=== PATIENT | male | born 1975 | race Caucasian/White ===

== ENCOUNTER 2016-11-03 02:13 | Emergency (ER) | payer SELFPAY ==
[~2016-11-03] VITALS: Ht 180.3 cm; Wt 77.6 kg
[~2016-11-03 02:13] MED LIST: ATEN100T PO; BUTA1CAP29 PO; CARB200T PO; HYDR-971 PO
[2016-11-03] MEDS ORDERED: ONDANSETRON PF 4 MG/2 ML VIAL. IV ONE (02:30)
[2016-11-03] MEDS ORDERED: HYDROMORPHONE 2 MG/ML VIAL. IV PRN (02:30)
[2016-11-03] MEDS ORDERED: 0.9 % SODIUM CHLORIDE 10 ML DISP.SYRIN. IV PRN (02:30)
[2016-11-03 02:44] LABS: BASO # 0.2 x10^3/uL (0.0-0.2); BASO % 2 % (0-3); EOS % 4 % (0-3); HEMATOCRIT 47.5 % (39.0-53.0); HEMOGLOBIN 16.2 g/dL (13.0-17.5); LYMPH # 3.3 x10^3/uL (1.0-4.8); LYMPH % 32 % (24-48); MEAN CORPUSCULAR HEMOGLOBIN 33 pg (25-35); MEAN CORPUSCULAR HGB CONC 34 g/dL (31-37); MEAN CORPUSCULAR VOLUME 97 fL (79-100); MONO % 6 % (0-9); NEUT % 57 % (31-73); PLATELET COUNT 224 x10^3/uL (140-400); RED BLOOD COUNT 4.92 x10^6/uL (4.30-5.70); RED CELL DISTRIBUTION WIDTH 13.2 % (11.5-14.5); WHITE BLOOD COUNT 10.4 x10^3/uL (4.0-11.0)
[2016-11-03 02:57] LABS: INR 1.3 (0.8-1.1)
[2016-11-03 02:59] LABS: CALCIUM 8.4 mg/dL (8.5-10.1); CREATININE 1.1 mg/dL (0.7-1.3); GFR 74.1; POTASSIUM 3.9 mmol/L (3.5-5.1)
--- NOTE | 2016-11-03 03:01 | RAD ---
PROCEDURE Head and cervical spine CT without contrast. HISTORY Seizure. TECHNIQUE Computed tomographic images of the head and cervical spine were obtained without contrast. One or more of the following individualized dose reduction techniques were utilized for this examination: 1. Automated exposure control; 2. Adjustment of the mA and/or kV according to patient size; 3. Use of iterative reconstruction technique. COMPARISON CT angiogram dated 10/18/2016. FINDINGS Head: There is stable mild increased bifrontal extra-axial space due to mile cerebral volume loss. There is no evidence of acute hemorrhage. The mata and white matter differentiation pattern is intact. There is no mass effect or midline shift. There is no hydrocephalus. The orbits, paranasal sinuses mastoid air cells are unremarkable. Cervical spine: The vertebral bodies are normal in height. There is degenerative endplate remodeling with osteophytosis at multiple levels, predominately at C5-C6. There is no fracture. No suspicious osseous lesion is seen. There is mild biapical emphysema. There foci of gas within the thoracic inlet likely due to recent venous catheterization. At C2-C3, there is a disc bulge and endplate remodeling. There is mild left facet arthropathy. There is no stenosis. At C3-C4, there is a disc bulge and endplate remodeling. There is mild left facet arthropathy. There is mild left foraminal stenosis. At C4-C5, there is a disc bulge and endplate remodeling. There is mild left facet arthropathy. There is no stenosis. At C5-C6, there is a right paracentral to lateral disc osteophyte complex superimposed on a disc bulge and endplate remodeling. There is uncovertebral arthropathy. There is moderate to severe right and mild left foraminal stenosis. At C6-C7, there is a left foraminal to lateral disc osteophyte complex superimposed on a disc bulge and endplate osteophytosis. There is uncovertebral arthropathy. There is moderate right and moderate to severe left foraminal stenosis. IMPRESSION 1. No acute intracranial finding. Note is made that a previously reported cerebral aneurysm cannot be assessed on this noncontrast exam. There is no evidence of hemorrhage. 2. Multilevel degenerative change within the cervical spine, described in detail above. Electronically signed by: Juanita Dick (Nov 03, 2016 02:59:26)
[2016-11-03 03:05] LABS: ALBUMIN 3.8 g/dL (3.4-5.0); DIRECT BILIRUBIN 0.1 mg/dL (0.0-0.2); TOTAL BILIRUBIN 0.3 mg/dL (0.2-1.0); TOTAL PROTEIN 7.6 g/dL (6.4-8.2)
[2016-11-03 03:09] VITALS: BP 98/65
[2016-11-03 03:15] LABS: BARBITURATES NEG (NEG); BENZODIAZEPINES NEG (NEG); CANNABINOIDS NEG (NEG); COCAINE NEG (NEG); METHADONE NEG (NEG); OPIATES NEG (NEG); PHENCYCLIDINE NEG (NEG)
[2016-11-03 03:17] LABS: ETHANOL, URINE POS (NEG)
--- NOTE | 2016-11-03 03:23 | PHYS DOC ---
Past Medical History Past Medical History: COPD, Hypertension, Seizure Additional Past Medical Histor: collapse lungs, brain aneurysm Past Surgical History: Other Additional Past Surgical Histo: lung sx Alcohol Use: Occasionally Drug Use: None Adult General Chief Complaint Chief Complaint: SEIZURE HPI HPI 41-year-old male presenting to the emergency department today with one seizure. He comes by EMS today. He had a seizure and subsequent hit his head. He hit his head on the table. Since then he has had a headache that is sharp moderate nonradiating and intermittent. No alleviating or exacerbating factors present. He reports recently changing his Tegretol however is unable to afford the increase in his medication. Review of Systems Review of Systems ROS negative for chest pain abdominal pain nausea vomiting. All other review of systems is negative unless otherwise noted in history of present illness. Current Medications Current Medications Current Medications Medications (Trade) Dose Ordered Sig/Daniella Start Time Stop Time Status Last Admin Dose Admin Hydromorphone HCl (Dilaudid) 0.5 mg PRN Q1HR PRN 11/03/16 02:30 11/03/16 03:37 DC 11/03/16 02:43 0.5 MG Ondansetron HCl 4 mg 4 mg 1X ONCE 11/03/16 02:30 11/03/16 02:31 DC 11/03/16 02:42 4 MG Sodium Chloride (Iv Sodium Chloride 0.9% 1000ml Bag) 1,000 ml @ 1,000 mls/hr 1X ONCE 11/03/16 03:30 11/03/16 03:37 DC 11/03/16 02:42 1,000 MLS/HR Sodium Chloride (Normal Saline Flush) 10 ml QSHIFT PRN 11/03/16 02:30 11/03/16 03:37 DC Allergies Allergies Allergies Coded Allergies Type Severity Reaction Last Updated Verified trazodone Allergy Severe PT REPORTS " MY HEART STOPPED" 11/24/15 Yes Physical Exam Physical Exam Constitutional: Well developed, well nourished, no acute distress, non-toxic appearance. HENT: Normocephalic, no identifiable lacerations or ecchymosis or abrasions of the head or neck., bilateral external ears normal, oropharynx moist, no oral exudates, nose normal. Eyes: PERRLA, EOMI, conjunctiva normal, no discharge. Neck: Normal range of motion, no tenderness, supple, no stridor. No step-offs or injuries of the back. Nontender midline. Cardiovascular:Heart rate regular rhythm, no murmur Lungs & Thorax: Bilateral breath sounds clear to auscultation [] Abdomen: Bowel sounds normal, soft, no tenderness, no masses, no pulsatile masses. Skin: Warm, dry, no erythema, no rash. [] Back: No tenderness, no CVA tenderness. Nontender of the thoracic and lumbar spine. No step-offs. Extremities: No tenderness, no cyanosis, no clubbing, ROM intact, no edema. [] Neurologic: Neuro exam: Mental status: Awake oriented and alert x3 Cranial nerves: Extraocular movements intact, eyebrows maurilio bilaterally smile symmetric, uvula elevation, shoulder shrug intact, tongue protrusion normal DTRs: 2+ Sensation: equal and normal in all extremities Strength: 5/5 in upper and lower extremities bilaterally Psychologic: Affect normal, judgement normal, mood normal. [] Current Patient Data Vital Signs Vital Signs Date Time Temp Pulse Resp B/P Pulse Ox O2 Delivery O2 Flow Rate FiO2 11/03/16 03:09 60 16 98/65 98 Room Air 11/03/16 02:27 97.7 97.7 Lab Values Laboratory Tests Test 11/03/16 02:19 11/03/16 03:00 White Blood Count 10.4x10^3/uL (4.0-11.0) Red Blood Count 4.92x10^6/uL (4.30-5.70) Hemoglobin 16.2g/dL (13.0-17.5) Hematocrit 47.5% (39.0-53.0) Mean Corpuscular Volume 97fL (79-100) Mean Corpuscular Hemoglobin 33pg (25-35) Mean Corpuscular Hemoglobin Concent 34g/dL (31-37) Red Cell Distribution Width 13.2% (11.5-14.5) Platelet Count 224x10^3/uL (140-400) Neutrophils (%) (Auto) 57% (31-73) Lymphocytes (%) (Auto) 32% (24-48) Monocytes (%) (Auto) 6% (0-9) Eosinophils (%) (Auto) 4% (0-3) H Basophils (%) (Auto) 2% (0-3) Neutrophils # (Auto) 5.9x10^3uL (1.8-7.7) Lymphocytes # (Auto) 3.3x10^3/uL (1.0-4.8) Monocytes # (Auto) 0.6x10^3/uL (0.0-1.1) Eosinophils # (Auto) 0.4x10^3/uL (0.0-0.7) Basophils # (Auto) 0.2x10^3/uL (0.0-0.2) Platelet Estimate Pending Prothrombin Time 15.0SEC (11.7-14.0) H Prothrombin Time INR 1.3 (0.8-1.1) H PTT 32SEC (24-38) Sodium Level 134mmol/L (136-145) L Potassium Level 3.9mmol/L (3.5-5.1) Chloride Level 97mmol/L (98-107) L Carbon Dioxide Level 28mmol/L (21-32) Anion Gap 9 (6-14) Blood Urea Nitrogen 10mg/dL (8-26) Creatinine 1.1mg/dL (0.7-1.3) Estimated GFR (Cockcroft-Gault) 74.1 Glucose Level 81mg/dL (70-99) Lactic Acid Level 1.2mmol/L (0.4-2.0) Calcium Level 8.4mg/dL (8.5-10.1) L Total Bilirubin 0.3mg/dL (0.2-1.0) Direct Bilirubin 0.1mg/dL (0.0-0.2) Aspartate Amino Transferase (AST) 61U/L (15-37) H Alanine Aminotransferase (ALT) 72U/L (16-63) H Alkaline Phosphatase 51U/L (46-116) Total Protein 7.6g/dL (6.4-8.2) Albumin 3.8g/dL (3.4-5.0) Urine Opiates Screen Neg (NEG) Urine Methadone Screen Neg (NEG) Urine Barbiturates Neg (NEG) Urine Phencyclidine Screen Neg (NEG) Urine Amphetamine/Methamphetamine Neg (NEG) Urine Benzodiazepines Screen Neg (NEG) Urine Cocaine Screen Neg (NEG) Urine Cannabinoids Screen Neg (NEG) Urine Ethyl Alcohol Pos (NEG) Laboratory Tests 11/03/16 02:19 Laboratory Tests 11/03/16 02:19 EKG EKG [] Sinus rhythm with regular rate. [place] is leftward. Intervals are within normal limits. ST segments are congruent. Radiology/Procedures Radiology/Procedures Head neck CT showed no acute intracranial pathology. Multilevel chronic degenerative changes of the spine. [] Course & Med Decision Making Course & Med Decision Making Pertinent Labs and Imaging studies reviewed. (See chart for details) 41-year-old male with epilepsy who currently is on antiepileptic medications presents emergency Department with one seizure. He had returned to baseline when I was doing my evaluation. Vital signs showed mild hypertension with a normal heart rate. Otherwise unremarkable. Physical exam showed a normal neurologic exam. The patient's workup included CBC which was unremarkable. Chemistry panel without any acute significant changes. Lactic acid within normal limits. And negative UDS. On reevaluation the patient was asymptomatic. I recommended the patient follow up with our neurologist Dr. Estevez in the next 3-4 days for recommendations on antiepileptic medications. Currently I recommended he continue the medications he was prescribed previously. I recommended he discuss with our renal social worker how to get the medications before. I informed him not to drive because of the seizure disorder. He was in discharged in stable condition. Dragon Disclaimer Dragon Disclaimer This electronic medical record was generated, in whole or in part, using a voice recognition dictation system. Departure Departure Impression: Primary Impression: Seizure Disposition: 01 HOME, SELF-CARE Condition: STABLE Referrals: NO PCP (PCP) MARCELL PALOMINO MD 3-4 days Patient Instructions: Seizure, Adult Additional Instructions: Thank you for allowing us to participate in your care today. Followup with your neurologist for seizure medication management. Continuing taking your Tegretol as previously prescribed. If your symptoms do not improve. If you do not have a primary care provider you can ask for a list of our primary care providers. Return to the emergency department you have any new or concerning findings. This should be evaluated by the primary care physician and any necessary consulting services for continued management within a few days after discharge. Return to emergency room if you have any new or concerning symptoms including but not limited to fever, chills, nausea, vomiting, intractable pain, any new rashes, chest pain, shortness of air, uncontrolled bleeding, difficulty breathing, and/or vision loss. Do not drive because you have seizure disorder. Scripts Hydrocodone Bit/Acetaminophen (Hydrocodone-Apap 5-325 )1 Each Tablet1 Tab PO PRN Q6HRS PRN PAIN #8 TAB Be careful as this medication may cause you to be drowsy or tired. Do not drive on this medication. Prov:RICK PAIGE MD 11/03/16 RICK PAIGE MD Nov 03, 2016 03:23
[2016-11-03] MEDS ORDERED: HYDR-2666 PO (03:28)
[2016-11-03] MEDS ORDERED: IV NORMAL SALINE 1000ML BAG 1,000 ML IV ONE (03:30)
[2016-11-03 10:02] LABS: % BASOS 1 % (0-3); % EOS 4 % (0-5); PLT ESTIMATE ADEQUATE (ADEQUATE)
--- NOTE | 2016-11-03 11:34 | EKG ---
[facility] [address] [place] [address] Test Date: 2016-11-03 Test Time: 02:24:20 Pat Name: YARI MARTIN Department: Room: Gender: M Certified Coding Specialist: : [id number] Requested By: RICK PAIGE Order Number: [id number] Reading MD: Measurements Intervals [place] Rate: 66 P: 39 [place]: 168 QRS: -94 QRSD: 92 T: 11 QT: 404 QTc: 425 Interpretive Statements SINUS RHYTHM ABNORMAL RIGHT SUPERIOR AXIS DEVIATION LOW LIMB LEAD VOLTAGE S1,S2,S3 PATTERN LEFT ANTERIOR FASCICULAR BLOCK ABNORMAL ECG RI6.01 No previous ECG available for comparison
== END 2016-11-03 03:34 | disposition home or self-care (01) ==
LOC: ER 02:13
DX: G40.909 Epilepsy, unspecified, not intractable, without status epilepticus (principal); J44.9 Chronic obstructive pulmonary disease, unspecified; I10 Essential (primary) hypertension; I67.1 Cerebral aneurysm, nonruptured; Z88.5 Allergy status to narcotic agent; Z79.899 Other long term (current) drug therapy
CPT/HCPCS: 36415; 70450; 72125; 80048; 80076; 83605; 85007; 85027; 85610; 85730; 93005; 96361; 96374; 96375; 99285; G0481; J1170; J2405; J7030

== ENCOUNTER 2016-12-01 09:31 | Emergency (ER) | payer SELFPAY ==
[~2016-12-01 09:31] MED LIST changes: +HYDR-2666 PO
[2016-12-01] MEDS ORDERED: ASPIRIN 81 MG TAB.CHEW PO ONE (09:45)
--- NOTE | 2016-12-01 10:05 | RAD ---
EXAM: Chest, single view. HISTORY: Chest pain. COMPARISON: None. FINDINGS: A frontal view of the chest is obtained. There is no infiltrate, effusion or pneumothorax. The heart is normal in size. IMPRESSION: No acute pulmonary finding.
[2016-12-01 10:20] LABS: BASO # 0.1 x10^3/uL (0.0-0.2); BASO % 1 % (0-3); EOS % 3 % (0-3); HEMOGLOBIN 18.2 g/dL (13.0-17.5); LYMPH # 2.5 x10^3/uL (1.0-4.8); LYMPH % 26 % (24-48); MEAN CORPUSCULAR HEMOGLOBIN 32 pg (25-35); MEAN CORPUSCULAR HGB CONC 34 g/dL (31-37); MEAN CORPUSCULAR VOLUME 96 fL (79-100); MONO % 7 % (0-9); NEUT % 63 % (31-73); PLATELET COUNT 221 x10^3/uL (140-400); RED BLOOD COUNT 5.63 x10^6/uL (4.30-5.70); RED CELL DISTRIBUTION WIDTH 13.3 % (11.5-14.5); WHITE BLOOD COUNT 9.8 x10^3/uL (4.0-11.0)
--- NOTE | 2016-12-01 10:33 | PHYS DOC ---
Past Medical History Past Medical History: COPD, Hypertension, Seizure Additional Past Medical Histor: collapse lungs, brain aneurysm Past Surgical History: Other Additional Past Surgical Histo: lung sx Additional Information: 1 ppd Alcohol Use: Occasionally Drug Use: None Adult General Chief Complaint Chief Complaint: CHEST PAIN HPI HPI 41-year-old male presenting the emergency department with left-sided chest pain that is sharp and radiates to the right worse with deep breaths and without alleviating factors. He also complains of a headache in the occiput that is nonradiating moderate and not sudden in onset. He denies it being thunderclap headache. Her having a history of a aneurysm for which she is currently seeking outpatient neurosurgical evaluation. He also complains of pain in the neck. He denies any recent trauma, even worse chills or neck stiffness. His headache was not sudden in onset. He denies any vision changes numbness weakness or tingling. He denies it being thunderclap headache. Review of Systems Review of Systems Negative for nausea vomiting diaphoresis. Positive for chest pain shortness of breath headache and neck pain. All other review of systems is negative unless otherwise noted in history of present illness. Current Medications Current Medications Current Medications Medications (Trade) Dose Ordered Sig/Daniella Start Time Stop Time Status Last Admin Dose Admin Acetaminophen/ Hydrocodone Bitart (Lortab 5/325) 2 tab 1X ONCE 12/01/16 11:45 12/01/16 11:46 DC 12/01/16 11:50 2 TAB Aspirin (Children'S Aspirin) 324 mg 1X ONCE 12/01/16 09:45 12/01/16 09:46 DC 12/01/16 10:07 324 MG Allergies Allergies Allergies Coded Allergies Type Severity Reaction Last Updated Verified trazodone Allergy Severe PT REPORTS " MY HEART STOPPED" 11/24/15 Yes Physical Exam Physical Exam Constitutional: Well developed, well nourished, no acute distress, non-toxic appearance. HENT: Normocephalic, atraumatic, bilateral external ears normal, oropharynx moist, no oral exudates, nose normal. Eyes: PERRLA, EOMI, conjunctiva normal, no discharge. [] Neck: Normal range of motion, no tenderness, supple, no stridor. Cardiovascular:Heart rate regular rhythm, no murmur Lungs & Thorax: Bilateral breath sounds clear to auscultation [] Abdomen: Bowel sounds normal, soft, no tenderness, no masses, no pulsatile masses. [] Skin: Warm, dry, no erythema, no rash. Back: No tenderness, no CVA tenderness. [] Extremities: No tenderness, no cyanosis, no clubbing, ROM intact, no edema. Neurologic: Mental status: Awake oriented and alert x3 Cranial nerves: Extraocular movements intact, eyebrows maurilio bilaterally smile symmetric, uvula elevation, shoulder shrug intact, tongue protrusion normal DTRs: 2+ Sensation: equal and normal in all extremities Strength: 5/5 in upper and lower extremities bilaterally Psychologic: Affect normal, judgement normal, mood normal. [] Current Patient Data Vital Signs Vital Signs Date Time Temp Pulse Resp B/P Pulse Ox O2 Delivery O2 Flow Rate FiO2 12/01/16 11:51 84 18 138/102 99 Room Air 12/01/16 09:51 97.5 97.5 Lab Values Laboratory Tests Test 12/01/16 09:55 White Blood Count 9.8x10^3/uL (4.0-11.0) Red Blood Count 5.63x10^6/uL (4.30-5.70) Hemoglobin 18.2g/dL (13.0-17.5) H Hematocrit 54.0% (39.0-53.0) H Mean Corpuscular Volume 96fL (79-100) Mean Corpuscular Hemoglobin 32pg (25-35) Mean Corpuscular Hemoglobin Concent 34g/dL (31-37) Red Cell Distribution Width 13.3% (11.5-14.5) Platelet Count 221x10^3/uL (140-400) Neutrophils (%) (Auto) 63% (31-73) Lymphocytes (%) (Auto) 26% (24-48) Monocytes (%) (Auto) 7% (0-9) Eosinophils (%) (Auto) 3% (0-3) Basophils (%) (Auto) 1% (0-3) Neutrophils # (Auto) 6.2x10^3uL (1.8-7.7) Lymphocytes # (Auto) 2.5x10^3/uL (1.0-4.8) Monocytes # (Auto) 0.7x10^3/uL (0.0-1.1) Eosinophils # (Auto) 0.3x10^3/uL (0.0-0.7) Basophils # (Auto) 0.1x10^3/uL (0.0-0.2) Sodium Level 139mmol/L (136-145) Potassium Level 3.8mmol/L (3.5-5.1) Chloride Level 102mmol/L (98-107) Carbon Dioxide Level 27mmol/L (21-32) Anion Gap 10 (6-14) Blood Urea Nitrogen 13mg/dL (8-26) Creatinine 1.3mg/dL (0.7-1.3) Estimated GFR (Cockcroft-Gault) 61.1 Glucose Level 138mg/dL (70-99) H Calcium Level 8.9mg/dL (8.5-10.1) Total Bilirubin 1.1mg/dL (0.2-1.0) H Direct Bilirubin 0.2mg/dL (0.0-0.2) Aspartate Amino Transferase (AST) 54U/L (15-37) H Alanine Aminotransferase (ALT) 80U/L (16-63) H Alkaline Phosphatase 59U/L (46-116) Troponin I Quantitative < 0.017ng/mL (0.000-0.055) MK-Gvf-A-Type Natriuretic Peptide 81pg/mL (0-124) Total Protein 7.9g/dL (6.4-8.2) Albumin 4.0g/dL (3.4-5.0) Lipase 140U/L (73-393) Laboratory Tests 12/01/16 09:55 Laboratory Tests 12/01/16 09:55 EKG EKG [] EKG shows sinus rhythm with a regular rate. [place] is leftward. Intervals are within normal limits. ST segments show mild isolated less than 1 mm repolarization in lead V3. Otherwise congruent. Radiology/Procedures Radiology/Procedures [] Chest x-ray negative. Course & Med Decision Making Course & Med Decision Making Pertinent Labs and Imaging studies reviewed. (See chart for details) [] 41-year-old male presenting to the emergency department today with chest pain headache and neck pain. His chest pain has been present for greater than 6 hours. On evaluation the patient's vital signs showed a normal heart rate. Afebrile. Satting well on room air. Mildly hypertensive. Physical exam was otherwise unremarkable. Normal neurologic exam. Blood work obtained which showed. Chest x-ray and ekg unremarkable. On reevaluation the patient's pain improved. He was subsequently discharged home to follow up with his PCP over the next few days. I recommended he be referred to the neurosurgeons at the [facility] for his aneurysm. Dragon Disclaimer Dragon Disclaimer This electronic medical record was generated, in whole or in part, using a voice recognition dictation system. Departure Departure Impression: Primary Impression: Chest pain Additional Impression: Headache Disposition: HOME, SELF-CARE Condition: STABLE Referrals: NO PCP (PCP) JOHNNY COCHRAN MD Patient Instructions: Chest Pain (Nonspecific) Additional Instructions: Thank you for allowing us to participate in your care today. I am referring you to the neurosurgeons at the [facility] for evaluation for your brain aneurysm. call to make appt at [phone]. Followup with your primary care physician in 3 days if your symptoms do not improve. If you do not have a primary care provider you can ask for a list of our primary care providers. Return to the emergency department you have any new or concerning findings. This should be evaluated by the primary care physician and any necessary consulting services for continued management within a few days after discharge. Return to emergency room if you have any new or concerning symptoms including but not limited to fever, chills, nausea, vomiting, intractable pain, any new rashes, chest pain, shortness of air, uncontrolled bleeding, difficulty breathing, and/or vision loss. Problem Qualifiers RICK PAIGE MD Dec 01, 2016 10:33
[2016-12-01 10:41] LABS: CALCIUM 8.9 mg/dL (8.5-10.1); CREATININE 1.3 mg/dL (0.7-1.3); GFR 61.1; POTASSIUM 3.8 mmol/L (3.5-5.1)
[2016-12-01 10:45] LABS: DIRECT BILIRUBIN 0.2 mg/dL (0.0-0.2); TOTAL BILIRUBIN 1.1 mg/dL (0.2-1.0); TOTAL PROTEIN 7.9 g/dL (6.4-8.2)
--- NOTE | 2016-12-01 10:57 | RAD ---
EXAM: Head CT without contrast. HISTORY: Headache. TECHNIQUE: Computed tomographic images of the head were obtained without contrast. COMPARISON: 11/03/2016. FINDINGS: There is no acute or subacute extra-axial or intraparenchymal hemorrhage. There is no mass effect or midline shift. There is no hydrocephalus. The mata-white matter differentiation pattern is intact. The visualized portions of the orbits, paranasal sinuses and mastoid air cells are unremarkable. No suspicious calvarial lesion is seen. IMPRESSION: No acute intracranial finding. PQRS Compliance Statement: One or more of the following individualized dose reduction techniques were utilized for this examination: 1. Automated exposure control 2. Adjustment of the mA and/or kV according to patient size 3. Use of iterative reconstruction technique
[2016-12-01] MEDS ORDERED: HYDROCODONE/APAP 5/325MG TABLET. PO ONE (11:45)
--- NOTE | 2016-12-01 11:45 | EKG ---
[facility] [address] [place] [address] Test Date: 2016-12-01 Test Time: 09:39:19 Pat Name: YARI MARTIN Department: Room: Gender: M Camp Assistant: : 1975 Requested By: RICK PAIGE Order Number: [id number] Reading MD: Bg Ponce Measurements Intervals [place] Rate: 84 P: 45 [place]: 142 QRS: -89 QRSD: 96 T: 26 QT: 372 QTc: 443 Interpretive Statements SINUS RHYTHM ABNORMAL LEFT AXIS DEVIATION LEFT ANTERIOR FASCICULAR BLOCK Electronically Signed On 12-02-2016 10:40:12 PRINCIPAL TECHNICAL ARCHITECT by Bg Ponce
[2016-12-01 12:30] VITALS: BP 123/94
== END 2016-12-01 12:39 | disposition home or self-care (01) ==
LOC: ER 09:31
DX: R07.89 Other chest pain (principal); R51 Headache; J44.9 Chronic obstructive pulmonary disease, unspecified; I10 Essential (primary) hypertension; F17.200 Nicotine dependence, unspecified, uncomplicated; Z86.69 Personal history of other diseases of the nervous system and sense organs; Z88.8 Allergy status to other drugs, medicaments and biological substances
CPT/HCPCS: 36415; 70450; 71010; 80048; 80076; 83690; 83880; 84484; 85027; 93005; 99285-25

== ENCOUNTER 2016-12-17 21:32 | Emergency (ER) | payer SELFPAY ==
[~2016-12-17] VITALS: Ht 180.3 cm; Wt 77.6 kg
[2016-12-17 21:52] VITALS: BP 154/101
--- NOTE | 2016-12-17 22:12 | PHYS DOC ---
Past Medical History Past Medical History: COPD, Hypertension, Seizure Additional Past Medical Histor: collapse lungs, brain aneurysm Past Surgical History: Other Additional Past Surgical Histo: lung sx Alcohol Use: Occasionally Drug Use: None Adult General Chief Complaint Chief Complaint: Congestion HPI HPI Patient is a 41 year old male who presents with cough. Patient reports for the past 2 days he has had cough, sensation that there is fluid in his chest, slight shortness of breath, headache, body aches. Denies any fevers chills. He reports his household was recently sick with similar symptoms. He has tried Mucinex, Robitussin, pain pills at home with insufficient relief. No other acute complaints. Review of Systems Review of Systems Constitutional: Denies fever or chills Eyes: Denies change in visual acuity or eye pain HENT: Denies nasal congestion or sore throat Respiratory: Cough, shortness of breath Cardiovascular: Denies chest pain GI: Denies abdominal pain, nausea, vomiting, bloody stools or diarrhea : Denies dysuria or hematuria Musculoskeletal: Body aches Integument: Denies rash or skin lesions Neurologic: Headache. Denies focal weakness or sensory changes Current Medications Current Medications Current Medications Medications (Trade) Dose Ordered Sig/Daniella Start Time Stop Time Status Last Admin Dose Admin Acetaminophen/ Hydrocodone Bitart (Lortab 5/325) 2 tab 1X ONCE 12/17/16 22:15 12/17/16 22:16 DC 12/17/16 22:52 2 TAB Benzonatate (Tessalon Perle) 100 mg 1X ONCE 12/17/16 22:15 12/17/16 22:16 DC 12/17/16 22:53 100 MG Allergies Allergies Allergies Coded Allergies Type Severity Reaction Last Updated Verified trazodone Allergy Severe PT REPORTS " MY HEART STOPPED" 11/24/15 Yes Physical Exam Physical Exam Constitutional: Well developed, well nourished, no acute distress, non-toxic appearance HENT: Normocephalic, atraumatic, bilateral external ears normal Eyes: PERRL, EOMI, conjunctiva normal, no discharge Neck: Normal range of motion, no stridor Cardiovascular: Heart rate normal, regular rhythm, no murmur Lungs & Thorax: Bilateral breath sounds clear to auscultation Abdomen: Bowel sounds normal, soft, non-distended, no TTP Skin: Warm, dry, no erythema, no rash Extremities: No obvious deformity, no edema Neurologic: Alert and oriented X 3, GCS 15, CN II-XII grossly intact, strength intact and symmetrical throughout, sensation to light touch intact throughout, no dystaxia noted Current Patient Data Vital Signs Vital Signs Date Time Temp Pulse Resp B/P Pulse Ox O2 Delivery O2 Flow Rate FiO2 12/17/16 22:52 Room Air 12/17/16 21:52 97.9 90 16 154/101 96 97.9 Lab Values Laboratory Tests Test 12/17/16 21:40 12/17/16 22:25 12/18/16 00:20 Influenza Type A Antigen Negative (NEGATIVE) Influenza Type B Antigen Negative (NEGATIVE) White Blood Count 7.8x10^3/uL (4.0-11.0) Red Blood Count 5.03x10^6/uL (4.30-5.70) Hemoglobin 16.3g/dL (13.0-17.5) Hematocrit 47.3% (39.0-53.0) Mean Corpuscular Volume 94fL (79-100) Mean Corpuscular Hemoglobin 32pg (25-35) Mean Corpuscular Hemoglobin Concent 35g/dL (31-37) Red Cell Distribution Width 12.9% (11.5-14.5) Platelet Count 187x10^3/uL (140-400) Neutrophils (%) (Auto) 51% (31-73) Lymphocytes (%) (Auto) 37% (24-48) Monocytes (%) (Auto) 10% (0-9) H Eosinophils (%) (Auto) 2% (0-3) Basophils (%) (Auto) 0% (0-3) Neutrophils # (Auto) 3.9x10^3uL (1.8-7.7) Lymphocytes # (Auto) 2.9x10^3/uL (1.0-4.8) Monocytes # (Auto) 0.8x10^3/uL (0.0-1.1) Eosinophils # (Auto) 0.2x10^3/uL (0.0-0.7) Basophils # (Auto) 0.0x10^3/uL (0.0-0.2) Sodium Level 137mmol/L (136-145) Potassium Level 3.5mmol/L (3.5-5.1) Chloride Level 100mmol/L (98-107) Carbon Dioxide Level 26mmol/L (21-32) Anion Gap 11 (6-14) Blood Urea Nitrogen 6mg/dL (8-26) L Creatinine 1.0mg/dL (0.7-1.3) Estimated GFR (Cockcroft-Gault) 82.8 Glucose Level 62mg/dL (70-99) L Calcium Level 8.4mg/dL (8.5-10.1) L Troponin I Quantitative < 0.017ng/mL (0.000-0.055) Glucose (Fingerstick) 109mg/dL (70-99) H Laboratory Tests 12/17/16 22:25 Laboratory Tests 12/17/16 22:25 EKG EKG EKG (my read): sinus rhythm, rate 78, LAD, intervals wnl, no acute ST changes Radiology/Procedures Radiology/Procedures CXR (my read): No acute abnormality CT head: IMPRESSION No acute intracranial abnormality. Course & Med Decision Making Course & Med Decision Making Pertinent Labs and Imaging studies reviewed. (See chart for details) Patient is 41-year-old male who presents with cough, shortness of breath, headache. Likely viral respiratory infection, especially given the family was sick with similar symptoms. Will obtain EKG, chest x-ray, labs to evaluate. CT head ordered given complain of headache. Blood work unremarkable except for glucose of 62. Patient provided with orange juice and soda, with subsequent normalization of blood glucose level. Discussed results with patient, who is feeling better at this time. Will plan discharge home with prescription for meds for symptomatic treatment, instructions for close follow-up, strict return precautions. Dragon Disclaimer Dragon Disclaimer This electronic medical record was generated, in whole or in part, using a voice recognition dictation system. Departure Departure Impression: Primary Impression: Upper respiratory infection Disposition: HOME, SELF-CARE Condition: IMPROVED Referrals: NO PCP (PCP) Patient Instructions: Upper Respiratory Infection, Adult Additional Instructions: Thank you for allowing us to provide care today in the Emergency Department. Take the provided medication as directed. Use caution after taking this medication as it can make you drowsy. Schedule a follow up appointment with a primary care doctor using the provided list. Return promptly to the Emergency Department if you develop any new or concerning symptoms. Scripts Hydrocodone/Apap 5-325 ([place] 5-325 Tablet)1 Each Tablet1 Tab PO PRN Q6HRS PRN PAIN #15 TAB Prov:ALFONZO DAS MD 12/18/16 Benzonatate (Tessalon Perle)100 Mg Capsule1 Cap PO TID PRN COUGH #21 CAP Prov:ALFONZO DAS MD 12/18/16 ALFONZO DAS MD Dec 17, 2016 22:13
[2016-12-17 22:15] LABS: OBC FLU VALID
[2016-12-17] MEDS ORDERED: BENZONATATE 100 MG CAPSULE. PO ONE (22:15)
[2016-12-17] MEDS ORDERED: HYDROCODONE/APAP 5/325MG TABLET. PO ONE (22:15)
[2016-12-17 22:33] LABS: BASO % 0 % (0-3); EOS % 2 % (0-3); HEMATOCRIT 47.3 % (39.0-53.0); HEMOGLOBIN 16.3 g/dL (13.0-17.5); LYMPH # 2.9 x10^3/uL (1.0-4.8); LYMPH % 37 % (24-48); MEAN CORPUSCULAR HEMOGLOBIN 32 pg (25-35); MEAN CORPUSCULAR HGB CONC 35 g/dL (31-37); MEAN CORPUSCULAR VOLUME 94 fL (79-100); MONO % 10 % (0-9); NEUT % 51 % (31-73); PLATELET COUNT 187 x10^3/uL (140-400); RED BLOOD COUNT 5.03 x10^6/uL (4.30-5.70); RED CELL DISTRIBUTION WIDTH 12.9 % (11.5-14.5); WHITE BLOOD COUNT 7.8 x10^3/uL (4.0-11.0)
[2016-12-17 22:44] LABS: CALCIUM 8.4 mg/dL (8.5-10.1); GFR 82.8; POTASSIUM 3.5 mmol/L (3.5-5.1)
--- NOTE | 2016-12-17 23:28 | RAD ---
PROCEDURE CT head without contrast. HISTORY Headache tonight. History of seizure, stroke, brain aneurysm. TECHNIQUE Helical CT imaging of the brain is performed without IV contrast. PQRS: One or more the following individualized dose reduction techniques were utilized for the study: 1. Automated exposure control. 2. Adjustment of the mA and/or kV according to patient size. 3. Use of iterative reconstruction technique. COMPARISON CT head without contrast December 01, 2016. FINDINGS There is no midline shift or mass effect. No extra-axial fluid collection or intraparenchymal hemorrhage. Mays-white matter differentiation is preserved. Ventricles and sulci are normal for patient age. The visualized paranasal sinuses and mastoid air cells are clear. The globes and orbits appear intact. No acute calvarial abnormality. IMPRESSION No acute intracranial abnormality. Electronically signed by: Tom Avendano MD (Dec 17, 2016 23:27:17)
[2016-12-18] MEDS ORDERED: HYDR-971 PO (00:33)
[2016-12-18] MEDS ORDERED: BENZ100C PO (00:33)
--- NOTE | 2016-12-18 07:06 | RAD ---
Chest: 2 views, 12/17/2016: History: Cough, shortness of breath. Comparison is made to a study from 12/01/2016. The heart size is normal. The lungs are clear. There is no evidence of pleural fluid. IMPRESSION: No acute cardiopulmonary abnormality is detected.
--- NOTE | 2016-12-18 08:28 | EKG ---
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
== END 2016-12-18 00:45 | disposition home or self-care (01) ==
LOC: ER 21:32
DX: J06.9 Acute upper respiratory infection, unspecified (principal); R51 Headache; J44.9 Chronic obstructive pulmonary disease, unspecified; I10 Essential (primary) hypertension; Z88.8 Allergy status to other drugs, medicaments and biological substances
CPT/HCPCS: 36415; 70450; 71020; 80048; 82947; 84484; 85027; 87804; 93005; 99285-25

== ENCOUNTER 2017-03-08 15:21 | Emergency (ER) | payer SELFPAY ==
[~2017-03-08] VITALS: Ht 180.3 cm; Wt 77.6 kg
[~2017-03-08 15:21] MED LIST changes: +BENZ100C PO
[2017-03-08 15:57] LABS: BASO # 0.1 x10^3/uL (0.0-0.2); BASO % 1 % (0-3); EOS % 2 % (0-3); HEMATOCRIT 48.3 % (39.0-53.0); LYMPH # 2.6 x10^3/uL (1.0-4.8); LYMPH % 26 % (24-48); MEAN CORPUSCULAR HEMOGLOBIN 33 pg (25-35); MEAN CORPUSCULAR HGB CONC 35 g/dL (31-37); MEAN CORPUSCULAR VOLUME 94 fL (79-100); MONO % 8 % (0-9); NEUT % 62 % (31-73); PLATELET COUNT 269 x10^3/uL (140-400); RED BLOOD COUNT 5.13 x10^6/uL (4.30-5.70); WHITE BLOOD COUNT 10.2 x10^3/uL (4.0-11.0)
[2017-03-08] MEDS ORDERED: NITROGLYCERIN SUBLINGUAL 0.4 MG BOTTLE OF 25. SL PRN (16:00)
[2017-03-08] MEDS ORDERED: ATENOLOL 50 MG TABLET. PO ONE (16:00)
[2017-03-08 16:19] LABS: CALCIUM 9.1 mg/dL (8.5-10.1); CREATININE 1.2 mg/dL (0.7-1.3); GFR 67.1
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
[2017-03-08 16:25] LABS: ALBUMIN 3.9 g/dL (3.4-5.0); ALBUMIN/GLOBULIN RATIO 0.9 (1.0-1.7); TOTAL BILIRUBIN 0.3 mg/dL (0.2-1.0); TOTAL PROTEIN 8.2 g/dL (6.4-8.2)
--- NOTE | 2017-03-08 16:41 | ED.ADGEN ---
Past Medical History Past Medical History: COPD, Hypertension, Seizure Additional Past Medical Histor: collapse lungs, brain aneurysm Past Surgical History: Other Additional Past Surgical Histo: lung sx Alcohol Use: Occasionally Drug Use: None Adult General Chief Complaint Chief Complaint: CHEST PAIN HPI HPI Patient is a 41 year old male presents with right lower anterior chest pain/right upper quadrant chest pain starting 1 hour prior to ED arrival. Pain is not worse with palpation, movement is nonradiating. It is not associated with nausea shortness of breath or sweats. Patient states he has had prior episodes of chest pain and has been evaluated in this emergency department and referred to cardiology. 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 Patient denies history of coronary disease. Past medical history significant for COPD, hypertension, seizure disorder and cerebral aneurysm. Of note, the patient's blood pressure is elevated, he ran out of his atenolol 3 days ago. Patient also reports chest pain episode during verbal argument with his spouse. Patient is a nonsmoker, denies daily alcohol or drug use. Review of Systems Review of Systems Review of systems as per history of present illness. All other review of systems are negative. Current Medications Current Medications Current Medications Medications (Trade) Dose Ordered Sig/Daniella Start Time Stop Time Status Last Admin Dose Admin Atenolol (Tenormin) 100 mg 1X ONCE 03/08/17 16:00 03/08/17 16:01 DC 03/08/17 15:55 100 MG Nitroglycerin (Nitrostat) 0.4 mg PRN Q5MIN PRN 03/08/17 16:00 03/08/17 15:56 0.4 MG Oxycodone/ Acetaminophen (Percocet 5/325) 1 tab 1X ONCE 03/08/17 16:45 03/08/17 16:46 DC 03/08/17 16:48 1 TAB Allergies Allergies Allergies Coded Allergies Type Severity Reaction Last Updated Verified trazodone Allergy Severe PT REPORTS " MY HEART STOPPED" 11/24/15 Yes Physical Exam Physical Exam Constitutional: Well developed, well nourished, no acute distress, non-toxic appearance. HENT: Normocephalic, atraumatic, bilateral external ears normal, oropharynx moist, no oral exudates, nose normal. Eyes: PERRL. Neck: Normal range of motion. Cardiovascular:Heart rate regular rhythm, no murmur. Lungs & Thorax: Bilateral breath sounds clear to auscultation. Abdomen: Bowel sounds normal, soft, no tenderness, no masses, no pulsatile masses. Skin: Warm, dry, no erythema, no priti Back: No tenderness. Extremities: No tenderness, no cyanosis, no clubbing, ROM intact, no edema. Neurologic: Alert and oriented X 3, normal motor function, normal sensory function, no focal deficits noted. Psychologic: Affect normal, judgement normal, mood normal. Current Patient Data Vital Signs Vital Signs Date Time Temp Pulse Resp B/P (MAP) Pulse Ox O2 Delivery O2 Flow Rate FiO2 03/08/17 18:08 Room Air 03/08/17 18:00 83 18 124/85 (98) 97 03/08/17 15:42 98.3 98.3 Lab Values Laboratory Tests Test 03/08/17 15:35 03/08/17 16:25 03/08/17 17:28 White Blood Count 10.2 x10^3/uL (4.0-11.0) Red Blood Count 5.13 x10^6/uL (4.30-5.70) Hemoglobin 17.0 g/dL (13.0-17.5) Hematocrit 48.3 % (39.0-53.0) Mean Corpuscular Volume 94 fL (79-100) Mean Corpuscular Hemoglobin 33 pg (25-35) Mean Corpuscular Hemoglobin Concent 35 g/dL (31-37) Red Cell Distribution Width 13.0 % (11.5-14.5) Platelet Count 269 x10^3/uL (140-400) Neutrophils (%) (Auto) 62 % (31-73) Lymphocytes (%) (Auto) 26 % (24-48) Monocytes (%) (Auto) 8 % (0-9) Eosinophils (%) (Auto) 2 % (0-3) Basophils (%) (Auto) 1 % (0-3) Neutrophils # (Auto) 6.3 x10^3uL (1.8-7.7) Lymphocytes # (Auto) 2.6 x10^3/uL (1.0-4.8) Monocytes # (Auto) 0.8 x10^3/uL (0.0-1.1) Eosinophils # (Auto) 0.2 x10^3/uL (0.0-0.7) Basophils # (Auto) 0.1 x10^3/uL (0.0-0.2) Sodium Level 138 mmol/L (136-145) Potassium Level 4.0 mmol/L (3.5-5.1) Chloride Level 101 mmol/L (98-107) Carbon Dioxide Level 27 mmol/L (21-32) Anion Gap 10 (6-14) Blood Urea Nitrogen 11 mg/dL (8-26) Creatinine 1.2 mg/dL (0.7-1.3) Estimated GFR (Cockcroft-Gault) 67.1 BUN/Creatinine Ratio 9 (6-20) Glucose Level 118 mg/dL (70-99) H Calcium Level 9.1 mg/dL (8.5-10.1) Total Bilirubin 0.3 mg/dL (0.2-1.0) Aspartate Amino Transferase (AST) 97 U/L (15-37) H Alanine Aminotransferase (ALT) 149 U/L (16-63) H Alkaline Phosphatase 65 U/L (46-116) Creatine Kinase 189 U/L (39-308) Creatine Kinase MB (Mass) 1.0 ng/mL (0.0-3.6) Creatine Kinase MB Relative Index 0.5 % (0-4) Total Protein 8.2 g/dL (6.4-8.2) Albumin 3.9 g/dL (3.4-5.0) Albumin/Globulin Ratio 0.9 (1.0-1.7) L Lipase 129 U/L (73-393) POC Troponin I 0.00 ng/ml (<0.08) 0.00 ng/ml (<0.08) Laboratory Tests 03/08/17 15:35 Laboratory Tests 03/08/17 15:35 EKG EKG [EKG: Normal sinus rhythm, no acute ST-T wave changes.] Radiology/Procedures Radiology/Procedures [Chest x-ray: No acute cardiopulmonary disease per radiology report] Impressions: Atypical chest pain Course & Med Decision Making Course & Med Decision Making Pertinent Labs and Imaging studies reviewed. (See chart for details) [Patient comes with nonexertional nonreproducible chest wall pain that began at rest while in an verbal argument with his spouse. Patient's EKG, chest x-ray and labwork are unremarkable. Chest pain is not relieved with nitroglycerin. Patient's Perc score 0. Although the patient is awaiting outpatient cardiac testing, he denies she no chest pain symptoms while at home. Patient's home blood pressure medication dispensed and oxycodone given for chest pain. Repeat up on an ordered at the 2 hour mrk.] Kimberley Disclaimer Kimberley Disclaimer This electronic medical record was generated, in whole or in part, using a voice recognition dictation system. SHANAE OLIVER DO March 08, 2017 16:41
[2017-03-08] MEDS ORDERED: oxyCODONE/APAP 5/325 1 TAB TABLET PO ONE (16:45)
[2017-03-08 18:00] VITALS: BP 124/85
--- NOTE | 2017-03-09 09:07 | RAD ---
Indication anterior foot pain. No history of injury. AP oblique and lateral views of the right foot were obtained. No bony abnormality is seen
--- NOTE | 2017-03-09 11:30 | EKG ---
[facility] [address] [place] [address] Test Date: 2017-03-08 Test Time: 15:33:29 Pat Name: YARI MARTIN Department: Room: Gender: M Quality Control: : 1975 Requested By: SHANAE OLIVER Order Number: [id number] Reading MD: Margaret Spencer Measurements Intervals [place] Rate: 95 P: 49 [place]: 146 QRS: -91 QRSD: 88 T: 32 QT: 336 QTc: 425 Interpretive Statements SINUS RHYTHM ABNORMAL RIGHT SUPERIOR AXIS DEVIATION QRS(T) CONTOUR ABNORMALITY CONSISTENT WITH SEPTAL INFARCT AGE UNDETERMINED Electronically Signed On 03-09-2017 18:16:59 CDT by Margaret Spencer
== END 2017-03-08 18:05 ==
LOC: ER 15:21
DX: R07.89 Other chest pain (principal); J44.9 Chronic obstructive pulmonary disease, unspecified; I10 Essential (primary) hypertension; Z88.8 Allergy status to other drugs, medicaments and biological substances
CPT/HCPCS: 36415; 71010; 73630; 80053; 82550; 82553; 83690; 84484; 85027; 93005; 99285-25

== ENCOUNTER 2017-04-16 10:25 | Inpatient (IN) | payer SELFPAY ==
[~2017-04-16] VITALS: Ht 180.3 cm; Wt 73.0 kg
[~2017-04-16 10:25] MED LIST changes: -HYDR-2666 PO; +HYDR-2758 PO
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
[2017-04-16 11:14] LABS: BASO # 0.1 x10^3/uL (0.0-0.2); BASO % 1 % (0-3); EOS % 4 % (0-3); HEMATOCRIT 51.6 % (39.0-53.0); HEMOGLOBIN 17.7 g/dL (13.0-17.5); LYMPH % 25 % (24-48); MEAN CORPUSCULAR HEMOGLOBIN 34 pg (25-35); MEAN CORPUSCULAR HGB CONC 34 g/dL (31-37); MEAN CORPUSCULAR VOLUME 98 fL (79-100); MONO % 8 % (0-9); NEUT % 62 % (31-73); PLATELET COUNT 181 x10^3/uL (140-400); RED BLOOD COUNT 5.27 x10^6/uL (4.30-5.70); RED CELL DISTRIBUTION WIDTH 13.7 % (11.5-14.5); WHITE BLOOD COUNT 7.9 x10^3/uL (4.0-11.0)
[2017-04-16 11:28] LABS: CALCIUM 9.4 mg/dL (8.5-10.1); CREATININE 1.2 mg/dL (0.7-1.3); GFR 67.1; POTASSIUM 4.4 mmol/L (3.5-5.1)
[2017-04-16] MEDS ORDERED: ATENOLOL 50 MG TABLET. PO ONE (11:30)
[2017-04-16 11:37] LABS: ALBUMIN 4.1 g/dL (3.4-5.0); ALBUMIN/GLOBULIN RATIO 1.1 (1.0-1.7); TOTAL BILIRUBIN 0.6 mg/dL (0.2-1.0); TOTAL PROTEIN 7.8 g/dL (6.4-8.2)
--- NOTE | 2017-04-16 11:53 | RAD ---
CT scan of the head without contrast 04/16/2017 Clinical History: Head pain for 3 days.. History of seizures. Technique: Unenhanced, contiguous, 5 mm axial sections were obtained through the head. One or more of the following individualized dose reduction techniques were utilized for this study: 1. Automated exposure control. 2. Adjustment of the mA and/or kV according to patient size. 3. Use of iterative reconstruction technique. Findings: Comparison study is dated 12/17/2016. There is mild generalized parenchymal atrophy. No acute parenchymal abnormality is seen. No extra-axial fluid collection is noted. No skull fracture is seen. Impression:. No acute intracranial abnormality is seen.
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
[2017-04-16] MEDS ORDERED: HYDROcodone/APAP 5/325MG 1 TAB TABLET PO ONE (12:15)
[2017-04-16 12:16] LABS: BILIRUBIN,URINE NEGATIVE (NEG); GLUCOSE,URINE NEGATIVE (NEG); NITRITE,URINE NEGATIVE (NEG); PROTEIN,URINE NEGATIVE (NEG-TRACE); UROBILINOGEN,URINE 0.2 mg/dL (0.2 mg/dL)
[2017-04-16] MEDS ORDERED: ATEN50TA PO (12:26)
[2017-04-16 12:38] LABS: BACTERIA,URINE 0 /HPF (0-FEW); RBC,URINE 0 /HPF (0-2); WBC,URINE 0 /HPF (0-4)
[2017-04-16] MEDS ORDERED: cloNIDine HCL 0.1 MG TABLET PO PRN (13:00)
--- NOTE | 2017-04-16 13:27 | ACF ---
Admit Criteria Forms Admit Criteria Forms Admit Criteria Forms HEADACHES Clinical Indications for Admission to Inpatient Care (Place 'X' for any and all applicable criteria): Admission is indicated for ANY ONE of the following(1)(2)(3)(4): [X]I. Inpatient admission required rather than observational care (Also use Headaches: Observation Care as appropriate) because of ANY ONE of the following: [X]a) Severe pain requiring acute inpatient management [ ]b) Altered mental status that is severe or persistent [ ]c) Vomiting or dehydration that is severe or persistent [ ]d) New-onset focal neurologic deficit that is severe or persistent [ ]e) Hypertension requiring inpatient treatment [X]f) Severe (new) neurologic findings requiring inpatient care as indicated by ANY ONE of following(9)(10): [ ]1) Papilledema [ ]2) Cerebral edema [ ]3) Mass effect on CT scan [ ]4) Cerebral bleeding, ischemia, or vasospasm(16) [ ]5) Hydrocephalus(17) [X]6) Uncontrolled seizures [ ]g) IV infusion of anticoagulation, platelet inhibitors vasoactive, or antiarrhythmic medication. [ ]h) Cerebral bleeding, hydrocephalus, or vasospasm monitoring (16) [ ]i) Increased intracranial pressure or cerebral edema monitoring (17) [ ]j) Other condition, treatment or monitoring requiring inpatient admission [ ]II. Unruptured but threatening aneurysm or vascular malformation [ ]III. Venous sinus thrombosis [ ]IV. Increased intracranial pressure [ ]V. Cerebral spinal fluid leak with decreased intracranial pressure [ ]. Medication-overuse headache that has failed all outpatient management options [ ]VII. Vasculitis (eg, giant cell (temporal) arteritis, central nervous system vasculitis) requiring IV corticosteroids, IV antithrombotic therapy, or inpatient monitoring (eg, visual symptoms or findings, other ischemic manifestations)[A](10)(11) Extended stay beyond goal length of stay may be needed for (27): [ ]a) Intractable migraine [ ]b) Subarachnoid or intracranial hemorrhage [ ]c) Malignant hypertension [ ]d) Detoxification from drug withdrawal in medication-overuse headache (29) The original [email or web address] content created by Claudia Alejandra has been revised. The portions of the content which have been revised are identified through the use of italic text or in bold, and Claudia Alejandra has neither reviewed nor approved the modified material.All other unmodified content is copyright [facility]. Please see references footnoted in the original [facility] edition 2016 CHERRY SINGER Apr 16, 2017 13:27
[2017-04-16] MEDS ORDERED: BUTALB/APAP/CAFEIN 50/325/40MG TABLET. PO PRN (13:45)
[2017-04-16] MEDS ORDERED: BENZONATATE 100 MG CAPSULE. PO PRN (13:45)
[2017-04-16] MEDS ORDERED: HYDROcodone/APAP 5/325MG 1 TAB TABLET PO PRN (13:45)
--- NOTE | 2017-04-16 13:53 | PDOC1 ---
History and Physical Date of Admission Date of Admission DATE: 04/16/17 TIME: 13:30 Identification/Chief Complaint Chief Complaint Blurry vision,. headache Problems: Source Source: Caregiver, Chart review, Patient History of Present Illness History of Present Illness pleasant 41 y.o , known to me, last admit was Oct 2016 for the same reason, headache and BOV with known brain aneurysm. CLaims seized las night, sore on his R side abd up to R shoulder, Admits non compliance to tegretol bec of cost (avila dose was increased from 200 mg to 600 mg). SW working on him to get medicaid/disabilty, He is living on food stamps,. he was dx in [place] with the brain anuerysm when he presented back then with BOV , facial numbness and headache. WAs told needed neuro IR but did not have insurance then. NO insurance now either, He is noting 7/10 headache after PO pain pill at ER, HR was 120s on arrival, better now, BP was also high initially, better now, CLaims almost near emesis bec of the above sxs, unsteady gait bec dizzy, LAst CTA brain was oct 2016 Also, notes,CP, palpitations, "bursting out of his chest". Claims scheduled for MPI May 07, unsure how he can get this if he is SP (reliability?) CTA oct 2016 - actually shows just a very small aneurysm, as described below: The petrous, cavernous and supraclinoid portions of both internal carotid arteries are within normal limits. Mild atherosclerotic plaque formation is seen involving the distal left vertebral artery. Both vertebral arteries are patent. The basilar artery is tortuous but patent. The A1 segment of the right anterior cerebral artery is hypoplastic. This is a normal variation. Prominence of the origin of the anterior communicating artery from the left anterior cerebral artery is again seen. This measures 3 to 4 mm in size. This could represent a small aneurysm. Its CT appearance is unchanged. The middle and posterior cerebral arteries and their branches are within normal limits. No area of stenosis or occlusion is seen. The major dural venous sinuses are patent. No area of abnormal contrast enhancement is noted. Impression: Stable CT appearance of the anterior communicating artery as outlined above. No acute abnormality is seen. Past Medical History Cardiovascular: HTN CENTRAL NERVOUS SYSTEM: Seizure Past Surgical History Past Surgical History: No pertinent history Family History Family History: No Significant Social History Smoke: 1 pack per day ALCOHOL: none Drugs: None Current Problem List Problem List Problems Medical Problems: (1) Headache Status: Acute (2) Hypertension Status: Acute (3) Vision blurred Status: Acute Problems: Current Medications Current Medications Current Medications Atenolol (Tenormin) 50 mg 1X ONCE PO Last administered on 04/16/17 11:35; Start 04/16/17 at 11:30; Stop 04/16/17 at 11:31; Status DC Acetaminophen/ Hydrocodone Bitart (Lortab 5/325) 1 tab 1X ONCE PO Last administered on 04/16/17 12:11; Start 04/16/17 at 12:15; Stop 04/16/17 at 12:16 ; Status DC Clonidine HCl (Catapres) 0.1 mg PRN Q2HR PRN PO elevated BP; Start 04/16/17 at 13:00 Active Scripts Active [place] 5-325 Tablet (Acetaminophen/Hydrocodone Bitart) 1 Each Tablet 1 Tab PO PRN Q6HRS PRN Tessalon Perle (Benzonatate) 100 Mg Capsule 1 Cap PO TID PRN Hydrocodone-Apap 5-325 (Hydrocodone Bit/Acetaminophen) 1 Each Tablet 1 Tab PO PRN Q6HRS PRN Be careful as this medication may cause you to be drowsy or tired. Do not drive on this medication. [place] 5-325 Tablet (Acetaminophen/Hydrocodone Bitart) 1 Each Tablet 1 Tab PO TID Fioricet 50-300-40 Mg Capsule (Butalb/Acetaminophen/Caffeine) 1 Each Capsule 1 Each PO PRN Q4HRS PRN Atenolol 100 Mg Tablet 1 Tab PO BID Reported Tegretol (Carbamazepine) 200 Mg Tablet 0.5 Tab PO BID Allergies Allergies: Coded Allergies: trazodone (Verified Allergy, Severe, PT REPORTS " MY HEART STOPPED", ) ROS General: YES: Other (weak) PSYCHOLOGICAL ROS: No: Anxiety, Behavioral Disorder, Concentration difficultie , Decreased libido, Depression, Disorientation, Hallucinations, Hostility, Irritablity, Memory difficulties, Mood Swings, Obsessive thoughts, Physical abuse, Sexual abuse, Sleep disturbances, Suicidal ideation, Other Eyes: Yes Blurry vision HEENT: YES: Heacaches, No: Visual Changes, Hearing change, Nasal congestion, Nasal discharge, Oral lesions, Sinus pain, Sore Throat, Epistaxis, Sneezing, Snoring, Tinnitus, Vertigo, Vocal changes, Other ALLERGY AND IMMUNOLOGY: No: Hives, Insect Bite Sensitivity, Itchy/Watery Eyes, Nasal Congestion, Post Nasal Drip, Seasonal Allergies, Other Hematological and Lymphatic: No: Bleeding Problems, Blood Clots, Blood Transfusions, Brusing, Night Sweats, Pallor, Swollen Lymph Nodes, Other ENDOCRINE: No: Breast Changes, Galactorrhea, Hair Pattern Changes, Hot Flashes , Malaise/lethargy, Mood Swings, Palpitations, Polydipsia/polyuria, Skin Changes , Temperature Intolerance, Unexpected Weight Changes, Other Breast: No New/Changing Breast Lumps, No Nipple changes, No Nipple discharge, No Other Respiratory: No: Cough, Hemoptysis, Orthopnea, Pleuritic Pain, Shortness of breath, SOB with excertion, Sputum Changes, Stridor, Tachypnea, Wheezing, Other Cardiovascular: yes Chest Pain Gastrointestinal: No Nausea, No Vomiting, No Abdominal Pain, No Diarrhea, No Constipation, No Melena, No Hematochezia, No Other Genitourinary: No Dysuria, No Frequency, No Incontinence, No Hematuria, No Retention, No Discharge, No Urgency, No Pain, No Flank Pain, No Other, No , No , No , No , No , No , No Musculoskeletal: No Gait Disturbance, No Joint Pain, No Joint Stiffness, No Joint Swelling, No Muscle Pain, No Muscular Weakness, No Pain In:, No Swelling In:, No Other Neurological: Yes Dizziness, Yes Gait Disturbance Skin: No Dry Skin, No Eczema, No Hair Changes, No Lumps, No Mole Changes, No Mottling, No Nail Changes, No Pruritus, No Rash, No Skin Lesion Changes, No Other, No Acne Physical Exam General: Alert, Oriented X3, Cooperative, No acute distress HEENT: PERRLA Lungs: Clear to auscultation Heart: S1S2, RRR, no thrills, no rubs Cardiovascular: S1, S2 Breasts: Normal, Abnormal mass palpable Abdomen: Normal bowel sounds, Soft, No tenderness, No hepatosplenomegaly, No masses Male Genitals Exam: normal genitalia, normal prostate Rectal Exam: not examined Extremities: No clubbing Skin: No rashes, No breakdown, No significant lesion Neuro: Normal gait, Normal speech, Strength at 5/5 X4 ext, Normal tone, Sensation intact, Cranial nerves 3-12 NL, Reflexes 2+ Vitals Vitals Vital Signs Date Time Temp Pulse Resp B/P (MAP) Pulse Ox O2 Delivery O2 Flow Rate FiO2 04/16/17 12:58 52 16 130/88 (102) 98 Room Air 04/16/17 10:35 97.8 97.8 Labs Labs Laboratory Tests Test 04/16/17 11:05 04/16/17 12:07 White Blood Count 7.9 x10^3/uL (4.0-11.0) Red Blood Count 5.27 x10^6/uL (4.30-5.70) Hemoglobin 17.7 g/dL (13.0-17.5) Hematocrit 51.6 % (39.0-53.0) Mean Corpuscular Volume 98 fL (79-100) Mean Corpuscular Hemoglobin 34 pg (25-35) Mean Corpuscular Hemoglobin Concent 34 g/dL (31-37) Red Cell Distribution Width 13.7 % (11.5-14.5) Platelet Count 181 x10^3/uL (140-400) Neutrophils (%) (Auto) 62 % (31-73) Lymphocytes (%) (Auto) 25 % (24-48) Monocytes (%) (Auto) 8 % (0-9) Eosinophils (%) (Auto) 4 % (0-3) Basophils (%) (Auto) 1 % (0-3) Neutrophils # (Auto) 4.9 x10^3uL (1.8-7.7) Lymphocytes # (Auto) 2.0 x10^3/uL (1.0-4.8) Monocytes # (Auto) 0.6 x10^3/uL (0.0-1.1) Eosinophils # (Auto) 0.3 x10^3/uL (0.0-0.7) Basophils # (Auto) 0.1 x10^3/uL (0.0-0.2) Sodium Level 140 mmol/L (136-145) Potassium Level 4.4 mmol/L (3.5-5.1) Chloride Level 103 mmol/L (98-107) Carbon Dioxide Level 32 mmol/L (21-32) Anion Gap 5 (6-14) Blood Urea Nitrogen 9 mg/dL (8-26) Creatinine 1.2 mg/dL (0.7-1.3) Estimated GFR (Cockcroft-Gault) 67.1 BUN/Creatinine Ratio 8 (6-20) Glucose Level 95 mg/dL (70-99) Calcium Level 9.4 mg/dL (8.5-10.1) Total Bilirubin 0.6 mg/dL (0.2-1.0) Aspartate Amino Transf (AST/SGOT) 60 U/L (15-37) Alanine Aminotransferase (ALT/SGPT) 83 U/L (16-63) Alkaline Phosphatase 64 U/L (46-116) Troponin I Quantitative < 0.017 ng/mL (0.000-0.055) Total Protein 7.8 g/dL (6.4-8.2) Albumin 4.1 g/dL (3.4-5.0) Albumin/Globulin Ratio 1.1 (1.0-1.7) Urine Collection Type Unknown Urine Color Yellow Urine Clarity Clear Urine pH 7.0 Urine Specific [place] <=1.005 Urine Protein Negative mg/dL (NEG-TRACE) Urine Glucose (UA) Negative mg/dL (NEG) Urine Ketones (Stick) Negative mg/dL (NEG) Urine Blood Negative (NEG) Urine Nitrite Negative (NEG) Urine Bilirubin Negative (NEG) Urine Urobilinogen Dipstick 0.2 mg/dL (0.2 mg/dL) Urine Leukocyte Esterase Negative (NEG) Urine RBC 0 /HPF (0-2) Urine WBC 0 /HPF (0-4) Urine Bacteria 0 /HPF (0-FEW) Laboratory Tests Test 04/16/17 11:05 04/16/17 12:07 White Blood Count 7.9 x10^3/uL (4.0-11.0) Red Blood Count 5.27 x10^6/uL (4.30-5.70) Hemoglobin 17.7 g/dL (13.0-17.5) Hematocrit 51.6 % (39.0-53.0) Mean Corpuscular Volume 98 fL (79-100) Mean Corpuscular Hemoglobin 34 pg (25-35) Mean Corpuscular Hemoglobin Concent 34 g/dL (31-37) Red Cell Distribution Width 13.7 % (11.5-14.5) Platelet Count 181 x10^3/uL (140-400) Neutrophils (%) (Auto) 62 % (31-73) Lymphocytes (%) (Auto) 25 % (24-48) Monocytes (%) (Auto) 8 % (0-9) Eosinophils (%) (Auto) 4 % (0-3) Basophils (%) (Auto) 1 % (0-3) Neutrophils # (Auto) 4.9 x10^3uL (1.8-7.7) Lymphocytes # (Auto) 2.0 x10^3/uL (1.0-4.8) Monocytes # (Auto) 0.6 x10^3/uL (0.0-1.1) Eosinophils # (Auto) 0.3 x10^3/uL (0.0-0.7) Basophils # (Auto) 0.1 x10^3/uL (0.0-0.2) Sodium Level 140 mmol/L (136-145) Potassium Level 4.4 mmol/L (3.5-5.1) Chloride Level 103 mmol/L (98-107) Carbon Dioxide Level 32 mmol/L (21-32) Anion Gap 5 (6-14) Blood Urea Nitrogen 9 mg/dL (8-26) Creatinine 1.2 mg/dL (0.7-1.3) Estimated GFR (Cockcroft-Gault) 67.1 BUN/Creatinine Ratio 8 (6-20) Glucose Level 95 mg/dL (70-99) Calcium Level 9.4 mg/dL (8.5-10.1) Total Bilirubin 0.6 mg/dL (0.2-1.0) Aspartate Amino Transf (AST/SGOT) 60 U/L (15-37) Alanine Aminotransferase (ALT/SGPT) 83 U/L (16-63) Alkaline Phosphatase 64 U/L (46-116) Troponin I Quantitative < 0.017 ng/mL (0.000-0.055) Total Protein 7.8 g/dL (6.4-8.2) Albumin 4.1 g/dL (3.4-5.0) Albumin/Globulin Ratio 1.1 (1.0-1.7) Urine Collection Type Unknown Urine Color Yellow Urine Clarity Clear Urine pH 7.0 Urine Specific [place] <=1.005 Urine Protein Negative mg/dL (NEG-TRACE) Urine Glucose (UA) Negative mg/dL (NEG) Urine Ketones (Stick) Negative mg/dL (NEG) Urine Blood Negative (NEG) Urine Nitrite Negative (NEG) Urine Bilirubin Negative (NEG) Urine Urobilinogen Dipstick 0.2 mg/dL (0.2 mg/dL) Urine Leukocyte Esterase Negative (NEG) Urine RBC 0 /HPF (0-2) Urine WBC 0 /HPF (0-4) Urine Bacteria 0 /HPF (0-FEW) VTE Prophylaxis Ordered VTE Prophylaxis Devices: Yes VTE Pharmacological Prophylaxi: Yes Assessment/Plan Assessment/Plan 1. Headaches, BOV, known small intracranial aneurysm 2. SZ, non compliance to tegretol 3. Accelerated HTN, POA, better 4. SInus tachycradia- NO SIRS 5. CP, in the background accelerated hTN 6. smoKER plan: Recheck CTA brain - make sure stable aneurysm still Resume home dose tegretol - 300 BID (use the recently increased dose) Neuro consult CLose neuro checks Hook tele Resume home atenolol ANti hypertensives prn avila with small aneurysm present Can consult cards re this CP - he claims he is scheduled for MPI May 07 XANDER PETTY MD Apr 16, 2017 13:53
[2017-04-16] MEDS ORDERED: ZOLPIDEM 5 MG TABLET. PO PRN (14:00)
[2017-04-16] MEDS ORDERED: ONDANSETRON PF 4 MG/2 ML VIAL. IV PRN (14:00)
[2017-04-16] MEDS ORDERED: ACETAMINOPHEN 500 MG TABLET PO PRN (14:00)
[2017-04-16] MEDS: carBAMazepine 200 MG TABLET PO SCH ×2 (15:28→20:26)
[2017-04-16] MEDS: MORPHINE SULFATE 2 MG/ML DISP.SYRIN. IV PRN ×3 (16:21→23:20)
[2017-04-16 16:27] VITALS: BP 126/90
--- NOTE | 2017-04-16 18:50 | PDOC2 ---
NEUROLOGY CONSULT Date of Admission Date of Admission DATE: 04/16/17 TIME: 18:42 Reason for Consult Reason for Consult: IMPRESSION: Headache. Seizure, per Hx he provided. ACom small aneurysm, 3-4 mm HTN COPD Smoking x 28 years. RECOMMENDATIONS/PLAN: Start Dilantin 3 00 mg HS. He discontinued Tegretol 3 weeks ago. EEG Symptomatic treatment for headache. Lab: see orders. HISTORY OF THE PRESENT ILLNESS: 41-y-old male patient came to the ER of [facility] with complaints of headache. He stated he has aneurysm that causes him headaches and he said he could feel his aneurysm in his head blowing. His aneurysm is small 3 to 4 mm on imagine study. He said he had 6 GTC this year and he discontinued Tegretol about 3 weeks ago due to concerns of cost. PAST MEDICAL HISTORY: Please see above. PAST SURGERY HISTORY: Lung surgery? ALLERGY: Unknown MEDICATIONS: Refer to [facility] FAMILY HISTORY: Non contributory. SOCIAL HISTORY: Lives at home. Denies drinking, and illicit drug use. He smokes a half to 1 pack of cigarettes a day for 28 years. REVIEW OF SYSTEMS: Constitutional: No malnutrition, weight loss, cachexia. Head: No recent traumatic brain or head injury. Skin: No edema, or rash. Ear: No infection. Eyes: No vision loss or color blindness. Nose: No bleeding or purulent discharges. Hearing: No hearing decrease. Neck: No recent injury. Cardiac: HTN. Pulmonary: COPD. GI: No GI ulcer, GI bleeding. Urinary/genital: No dysuria, incontinence, urinary retention. Endocrinologic: No cousin face, craniofacial dysmorphism, polydactyly. Skeletomuscular: No muscular atrophy, deformity. Neurological: see HP. Psychiatric: Denies drug use/abuse. Otherwise, not [id number] review of systems. PHYSICAL EXAMINATION: General appearance is in no acute distress. HEENT: Normocephalic and nontraumatic. Eyes, nose, ears, and throat are unremarkable. Neck is supple. No lymphadenopathy. No crepitus. Cardiovascular: S1, S2, regular rate and rhythm. Pulmonary: Clear to auscultation bilaterally. Abdomen: Bowel sounds are positive. Abdomen is soft, nontender, and nondistended. Extremities: No rash, lesions, or edema. No restriction of range of motion NEUROLOGICAL EXAMINATION: Alert Oriented to time, place and person. PERRL. EOMI. CN: no focal findings. Muscle tone: within normal. Muscle strength: 5 DTR: 2 Plantar reflex: Flexor response bilaterally Gait: not examined in bed. Sensory exam: no abnormal findings. No acute cerebellar signs elicited. F-T-N test fine. Current Medications Current Medications Current Medications Atenolol (Tenormin) 50 mg 1X ONCE PO Last administered on 04/16/17 11:35; Start 04/16/17 at 11:30; Stop 04/16/17 at 11:31; Status DC Acetaminophen/ Hydrocodone Bitart (Lortab 5/325) 1 tab 1X ONCE PO Last administered on 04/16/17 12:11; Start 04/16/17 at 12:15; Stop 04/16/17 at 12:16 ; Status DC Clonidine HCl (Catapres) 0.1 mg PRN Q2HR PRN PO elevated BP; Start 04/16/17 at 13:00 Benzonatate (Tessalon Perle) 100 mg PRN TID PRN PO COUGH; Start 04/16/17 at 13: 45 Carbamazepine (TEGretol) 300 mg BID PO Last administered on 04/16/17 15:28; Start 04/16/17 at 14:00 Acetaminophen/ Hydrocodone Bitart (Lortab 5/325) 1 tab PRN Q6HRS PRN PO PAIN; Start 04/16/17 at 13:45 Atenolol (Tenormin) 100 mg BID PO ; Start 04/16/17 at 21:00 Acetaminophen/ Butalbital/ Caffeine (Fioricet) 1 tab PRN Q4HRS PRN PO MIGRAINE HEADACHE; Start 04/16/17 at 13:45 Zolpidem Tartrate (Ambien) 5 mg PRN QHS PRN PO INSOMNIA; Start 04/16/17 at 14: 00 Morphine Sulfate 2 mg PRN Q2HR PRN IV pain Last administered on 04/16/17 16:21 ; Start 04/16/17 at 14:00 Ondansetron HCl (Zofran) 4 mg PRN Q6HRS PRN IV NAUSEA/VOMITING; Start 04/16/17 at 14:00 Acetaminophen (Tylenol) 500 mg PRN QID PRN PO HEADACHE; Start 04/16/17 at 14:00 Active Scripts Active [place] 5-325 Tablet (Acetaminophen/Hydrocodone Bitart) 1 Each Tablet 1 Tab PO PRN Q6HRS PRN Tessalon Perle (Benzonatate) 100 Mg Capsule 1 Cap PO TID PRN Fioricet 50-300-40 Mg Capsule (Butalb/Acetaminophen/Caffeine) 1 Each Capsule 1 Each PO PRN Q4HRS PRN Atenolol 100 Mg Tablet 1 Tab PO BID Reported Tegretol (Carbamazepine) 200 Mg Tablet 0.5 Tab PO BID Allergies Allergies: Coded Allergies: trazodone (Verified Allergy, Severe, PT REPORTS " MY HEART STOPPED", ) Vitals VITALS Vital Signs Date Time Temp Pulse Resp B/P (MAP) Pulse Ox O2 Delivery O2 Flow Rate FiO2 04/16/17 16:27 97.8 59 18 126/90 (102) 92 Room Air 97.8 Labs Labs Laboratory Tests Test 04/16/17 11:05 04/16/17 12:07 White Blood Count 7.9 x10^3/uL (4.0-11.0) Red Blood Count 5.27 x10^6/uL (4.30-5.70) Hemoglobin 17.7 g/dL (13.0-17.5) Hematocrit 51.6 % (39.0-53.0) Mean Corpuscular Volume 98 fL (79-100) Mean Corpuscular Hemoglobin 34 pg (25-35) Mean Corpuscular Hemoglobin Concent 34 g/dL (31-37) Red Cell Distribution Width 13.7 % (11.5-14.5) Platelet Count 181 x10^3/uL (140-400) Neutrophils (%) (Auto) 62 % (31-73) Lymphocytes (%) (Auto) 25 % (24-48) Monocytes (%) (Auto) 8 % (0-9) Eosinophils (%) (Auto) 4 % (0-3) Basophils (%) (Auto) 1 % (0-3) Neutrophils # (Auto) 4.9 x10^3uL (1.8-7.7) Lymphocytes # (Auto) 2.0 x10^3/uL (1.0-4.8) Monocytes # (Auto) 0.6 x10^3/uL (0.0-1.1) Eosinophils # (Auto) 0.3 x10^3/uL (0.0-0.7) Basophils # (Auto) 0.1 x10^3/uL (0.0-0.2) Sodium Level 140 mmol/L (136-145) Potassium Level 4.4 mmol/L (3.5-5.1) Chloride Level 103 mmol/L (98-107) Carbon Dioxide Level 32 mmol/L (21-32) Anion Gap 5 (6-14) Blood Urea Nitrogen 9 mg/dL (8-26) Creatinine 1.2 mg/dL (0.7-1.3) Estimated GFR (Cockcroft-Gault) 67.1 BUN/Creatinine Ratio 8 (6-20) Glucose Level 95 mg/dL (70-99) Calcium Level 9.4 mg/dL (8.5-10.1) Total Bilirubin 0.6 mg/dL (0.2-1.0) Aspartate Amino Transf (AST/SGOT) 60 U/L (15-37) Alanine Aminotransferase (ALT/SGPT) 83 U/L (16-63) Alkaline Phosphatase 64 U/L (46-116) Troponin I Quantitative < 0.017 ng/mL (0.000-0.055) Total Protein 7.8 g/dL (6.4-8.2) Albumin 4.1 g/dL (3.4-5.0) Albumin/Globulin Ratio 1.1 (1.0-1.7) Urine Collection Type Unknown Urine Color Yellow Urine Clarity Clear Urine pH 7.0 Urine Specific [place] <=1.005 Urine Protein Negative mg/dL (NEG-TRACE) Urine Glucose (UA) Negative mg/dL (NEG) Urine Ketones (Stick) Negative mg/dL (NEG) Urine Blood Negative (NEG) Urine Nitrite Negative (NEG) Urine Bilirubin Negative (NEG) Urine Urobilinogen Dipstick 0.2 mg/dL (0.2 mg/dL) Urine Leukocyte Esterase Negative (NEG) Urine RBC 0 /HPF (0-2) Urine WBC 0 /HPF (0-4) Urine Bacteria 0 /HPF (0-FEW) Laboratory Tests Test 04/16/17 11:05 04/16/17 12:07 White Blood Count 7.9 x10^3/uL (4.0-11.0) Red Blood Count 5.27 x10^6/uL (4.30-5.70) Hemoglobin 17.7 g/dL (13.0-17.5) Hematocrit 51.6 % (39.0-53.0) Mean Corpuscular Volume 98 fL (79-100) Mean Corpuscular Hemoglobin 34 pg (25-35) Mean Corpuscular Hemoglobin Concent 34 g/dL (31-37) Red Cell Distribution Width 13.7 % (11.5-14.5) Platelet Count 181 x10^3/uL (140-400) Neutrophils (%) (Auto) 62 % (31-73) Lymphocytes (%) (Auto) 25 % (24-48) Monocytes (%) (Auto) 8 % (0-9) Eosinophils (%) (Auto) 4 % (0-3) Basophils (%) (Auto) 1 % (0-3) Neutrophils # (Auto) 4.9 x10^3uL (1.8-7.7) Lymphocytes # (Auto) 2.0 x10^3/uL (1.0-4.8) Monocytes # (Auto) 0.6 x10^3/uL (0.0-1.1) Eosinophils # (Auto) 0.3 x10^3/uL (0.0-0.7) Basophils # (Auto) 0.1 x10^3/uL (0.0-0.2) Sodium Level 140 mmol/L (136-145) Potassium Level 4.4 mmol/L (3.5-5.1) Chloride Level 103 mmol/L (98-107) Carbon Dioxide Level 32 mmol/L (21-32) Anion Gap 5 (6-14) Blood Urea Nitrogen 9 mg/dL (8-26) Creatinine 1.2 mg/dL (0.7-1.3) Estimated GFR (Cockcroft-Gault) 67.1 BUN/Creatinine Ratio 8 (6-20) Glucose Level 95 mg/dL (70-99) Calcium Level 9.4 mg/dL (8.5-10.1) Total Bilirubin 0.6 mg/dL (0.2-1.0) Aspartate Amino Transf (AST/SGOT) 60 U/L (15-37) Alanine Aminotransferase (ALT/SGPT) 83 U/L (16-63) Alkaline Phosphatase 64 U/L (46-116) Troponin I Quantitative < 0.017 ng/mL (0.000-0.055) Total Protein 7.8 g/dL (6.4-8.2) Albumin 4.1 g/dL (3.4-5.0) Albumin/Globulin Ratio 1.1 (1.0-1.7) Urine Collection Type Unknown Urine Color Yellow Urine Clarity Clear Urine pH 7.0 Urine Specific [place] <=1.005 Urine Protein Negative mg/dL (NEG-TRACE) Urine Glucose (UA) Negative mg/dL (NEG) Urine Ketones (Stick) Negative mg/dL (NEG) Urine Blood Negative (NEG) Urine Nitrite Negative (NEG) Urine Bilirubin Negative (NEG) Urine Urobilinogen Dipstick 0.2 mg/dL (0.2 mg/dL) Urine Leukocyte Esterase Negative (NEG) Urine RBC 0 /HPF (0-2) Urine WBC 0 /HPF (0-4) Urine Bacteria 0 /HPF (0-FEW) RAKESH QUIÑONEZ MD Apr 16, 2017 18:50
[2017-04-16 19:00] VITALS: BP 123/72
[2017-04-16] MEDS: ATENOLOL 50 MG TABLET. PO SCH (20:26)
--- NOTE | 2017-04-16 20:30 | PDOC2 ---
CONSULT Date of Consult Date of Consult DATE: 04/16/17 TIME: 20:24 Reason for Consult Reason for Consult: Chest pain Referring Physician Referring Physician: Dr Osborne Identification/Chief Complaint Chief Complaint Seizures and chest pains as well as headaches History of Present Illness Reason for Visit: This patient is a 41-year-old gentleman with a known history of seizures that has stopped some of the seizure medications due to cost. 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 The patient came in with a horrible headache and a possible seizure but was also complaining of a severe chest pains. He was supposed to go see a head irrigator in for a stress test but after arrival he was complaining of the chest pains and I was asked to see him. At the time that I saw the patient he states that he is not having anymore chest pains, when he gets the pain is across the chest and severe. He denies palpitations and states that he has not noticed anything that brings on the pain. He may happen at any time. The patient is not very active and gets very short of breath at one flight of stairs. Past Medical History Cardiovascular: HTN Pulmonary: Bronchitis CENTRAL NERVOUS SYSTEM: Migraine, Seizure Past Surgical History Past Surgical History: No pertinent history Family History Family History: No Significant Social History 1 pack per day ALCOHOL: none Drugs: None Current Problem List Problem List Problems Medical Problems: (1) Headache Status: Acute (2) Hypertension Status: Acute (3) Vision blurred Status: Acute Current Medications Current Medications Current Medications Atenolol (Tenormin) 50 mg 1X ONCE PO Last administered on 04/16/17 11:35; Start 04/16/17 at 11:30; Stop 04/16/17 at 11:31; Status DC Acetaminophen/ Hydrocodone Bitart (Lortab 5/325) 1 tab 1X ONCE PO Last administered on 04/16/17 12:11; Start 04/16/17 at 12:15; Stop 04/16/17 at 12:16 ; Status DC Clonidine HCl (Catapres) 0.1 mg PRN Q2HR PRN PO elevated BP; Start 04/16/17 at 13:00 Benzonatate (Tessalon Perle) 100 mg PRN TID PRN PO COUGH; Start 04/16/17 at 13: 45 Carbamazepine (TEGretol) 300 mg BID PO Last administered on 04/16/17 15:28; Start 04/16/17 at 14:00 Acetaminophen/ Hydrocodone Bitart (Lortab 5/325) 1 tab PRN Q6HRS PRN PO PAIN; Start 04/16/17 at 13:45 Atenolol (Tenormin) 100 mg BID PO ; Start 04/16/17 at 21:00 Acetaminophen/ Butalbital/ Caffeine (Fioricet) 1 tab PRN Q4HRS PRN PO MIGRAINE HEADACHE; Start 04/16/17 at 13:45 Zolpidem Tartrate (Ambien) 5 mg PRN QHS PRN PO INSOMNIA; Start 04/16/17 at 14: 00 Morphine Sulfate 2 mg PRN Q2HR PRN IV pain Last administered on 04/16/17 19:42 ; Start 04/16/17 at 14:00 Ondansetron HCl (Zofran) 4 mg PRN Q6HRS PRN IV NAUSEA/VOMITING; Start 04/16/17 at 14:00 Acetaminophen (Tylenol) 500 mg PRN QID PRN PO HEADACHE; Start 04/16/17 at 14:00 Phenytoin Sodium (Dilantin) 300 mg HS PO ; Start 04/16/17 at 21:00 Active Scripts Active Hecker 5-325 Tablet (Acetaminophen/Hydrocodone Bitart) 1 Each Tablet 1 Tab PO PRN Q6HRS PRN Tessalon Perle (Benzonatate) 100 Mg Capsule 1 Cap PO TID PRN Fioricet 50-300-40 Mg Capsule (Butalb/Acetaminophen/Caffeine) 1 Each Capsule 1 Each PO PRN Q4HRS PRN Atenolol 100 Mg Tablet 1 Tab PO BID Reported Tegretol (Carbamazepine) 200 Mg Tablet 0.5 Tab PO BID Allergies Allergies: Coded Allergies: trazodone (Verified Allergy, Severe, PT REPORTS " MY HEART STOPPED", ) Physical Exam General: Alert, Oriented X3, Cooperative HEENT: Atraumatic, PERRLA Lungs: Clear to auscultation Heart: Regular rate, Normal S1, Normal S2 Abdomen: Normal bowel sounds, Soft Extremities: No edema Vitals VITALS Vital Signs Date Time Temp Pulse Resp B/P (MAP) Pulse Ox O2 Delivery O2 Flow Rate FiO2 04/16/17 19:42 92 Room Air 04/16/17 19:00 96.8 58 16 123/72 (89) 96.8 Labs Labs Laboratory Tests Test 04/16/17 11:05 04/16/17 12:07 04/16/17 17:54 White Blood Count 7.9 x10^3/uL (4.0-11.0) Red Blood Count 5.27 x10^6/uL (4.30-5.70) Hemoglobin 17.7 g/dL (13.0-17.5) Hematocrit 51.6 % (39.0-53.0) Mean Corpuscular Volume 98 fL (79-100) Mean Corpuscular Hemoglobin 34 pg (25-35) Mean Corpuscular Hemoglobin Concent 34 g/dL (31-37) Red Cell Distribution Width 13.7 % (11.5-14.5) Platelet Count 181 x10^3/uL (140-400) Neutrophils (%) (Auto) 62 % (31-73) Lymphocytes (%) (Auto) 25 % (24-48) Monocytes (%) (Auto) 8 % (0-9) Eosinophils (%) (Auto) 4 % (0-3) Basophils (%) (Auto) 1 % (0-3) Neutrophils # (Auto) 4.9 x10^3uL (1.8-7.7) Lymphocytes # (Auto) 2.0 x10^3/uL (1.0-4.8) Monocytes # (Auto) 0.6 x10^3/uL (0.0-1.1) Eosinophils # (Auto) 0.3 x10^3/uL (0.0-0.7) Basophils # (Auto) 0.1 x10^3/uL (0.0-0.2) Sodium Level 140 mmol/L (136-145) Potassium Level 4.4 mmol/L (3.5-5.1) Chloride Level 103 mmol/L (98-107) Carbon Dioxide Level 32 mmol/L (21-32) Anion Gap 5 (6-14) Blood Urea Nitrogen 9 mg/dL (8-26) Creatinine 1.2 mg/dL (0.7-1.3) Estimated GFR (Cockcroft-Gault) 67.1 BUN/Creatinine Ratio 8 (6-20) Glucose Level 95 mg/dL (70-99) Calcium Level 9.4 mg/dL (8.5-10.1) Total Bilirubin 0.6 mg/dL (0.2-1.0) Aspartate Amino Transf (AST/SGOT) 60 U/L (15-37) Alanine Aminotransferase (ALT/SGPT) 83 U/L (16-63) Alkaline Phosphatase 64 U/L (46-116) Troponin I Quantitative < 0.017 ng/mL (0.000-0.055) Total Protein 7.8 g/dL (6.4-8.2) Albumin 4.1 g/dL (3.4-5.0) Albumin/Globulin Ratio 1.1 (1.0-1.7) Urine Collection Type Unknown Urine Color Yellow Urine Clarity Clear Urine pH 7.0 Urine Specific [place] <=1.005 Urine Protein Negative mg/dL (NEG-TRACE) Urine Glucose (UA) Negative mg/dL (NEG) Urine Ketones (Stick) Negative mg/dL (NEG) Urine Blood Negative (NEG) Urine Nitrite Negative (NEG) Urine Bilirubin Negative (NEG) Urine Urobilinogen Dipstick 0.2 mg/dL (0.2 mg/dL) Urine Leukocyte Esterase Negative (NEG) Urine RBC 0 /HPF (0-2) Urine WBC 0 /HPF (0-4) Urine Bacteria 0 /HPF (0-FEW) Erythrocyte Sedimentation Rate 0 (0-15) Laboratory Tests Test 04/16/17 11:05 04/16/17 12:07 04/16/17 17:54 White Blood Count 7.9 x10^3/uL (4.0-11.0) Red Blood Count 5.27 x10^6/uL (4.30-5.70) Hemoglobin 17.7 g/dL (13.0-17.5) Hematocrit 51.6 % (39.0-53.0) Mean Corpuscular Volume 98 fL (79-100) Mean Corpuscular Hemoglobin 34 pg (25-35) Mean Corpuscular Hemoglobin Concent 34 g/dL (31-37) Red Cell Distribution Width 13.7 % (11.5-14.5) Platelet Count 181 x10^3/uL (140-400) Neutrophils (%) (Auto) 62 % (31-73) Lymphocytes (%) (Auto) 25 % (24-48) Monocytes (%) (Auto) 8 % (0-9) Eosinophils (%) (Auto) 4 % (0-3) Basophils (%) (Auto) 1 % (0-3) Neutrophils # (Auto) 4.9 x10^3uL (1.8-7.7) Lymphocytes # (Auto) 2.0 x10^3/uL (1.0-4.8) Monocytes # (Auto) 0.6 x10^3/uL (0.0-1.1) Eosinophils # (Auto) 0.3 x10^3/uL (0.0-0.7) Basophils # (Auto) 0.1 x10^3/uL (0.0-0.2) Sodium Level 140 mmol/L (136-145) Potassium Level 4.4 mmol/L (3.5-5.1) Chloride Level 103 mmol/L (98-107) Carbon Dioxide Level 32 mmol/L (21-32) Anion Gap 5 (6-14) Blood Urea Nitrogen 9 mg/dL (8-26) Creatinine 1.2 mg/dL (0.7-1.3) Estimated GFR (Cockcroft-Gault) 67.1 BUN/Creatinine Ratio 8 (6-20) Glucose Level 95 mg/dL (70-99) Calcium Level 9.4 mg/dL (8.5-10.1) Total Bilirubin 0.6 mg/dL (0.2-1.0) Aspartate Amino Transf (AST/SGOT) 60 U/L (15-37) Alanine Aminotransferase (ALT/SGPT) 83 U/L (16-63) Alkaline Phosphatase 64 U/L (46-116) Troponin I Quantitative < 0.017 ng/mL (0.000-0.055) Total Protein 7.8 g/dL (6.4-8.2) Albumin 4.1 g/dL (3.4-5.0) Albumin/Globulin Ratio 1.1 (1.0-1.7) Urine Collection Type Unknown Urine Color Yellow Urine Clarity Clear Urine pH 7.0 Urine Specific [place] <=1.005 Urine Protein Negative mg/dL (NEG-TRACE) Urine Glucose (UA) Negative mg/dL (NEG) Urine Ketones (Stick) Negative mg/dL (NEG) Urine Blood Negative (NEG) Urine Nitrite Negative (NEG) Urine Bilirubin Negative (NEG) Urine Urobilinogen Dipstick 0.2 mg/dL (0.2 mg/dL) Urine Leukocyte Esterase Negative (NEG) Urine RBC 0 /HPF (0-2) Urine WBC 0 /HPF (0-4) Urine Bacteria 0 /HPF (0-FEW) Erythrocyte Sedimentation Rate 0 (0-15) Assessment/Plan Assessment/Plan This patient with seizures, headaches, aneurysm, chest pains. From a cardiac standpoint the chest pains is atypical and his enzymes were negative and the and EKGs did not show acute ST segment abnormalities. I would like to do a Lexiscan MPI on this patient. He is also having workup for the other problems. Thank you very much for asking me to participate in the care of this patient MILKA LUCIA MD Apr 16, 2017 20:30
[2017-04-16] MEDS ORDERED: PHENYTOIN SODIUM EXTENDED 100 MG CAPSULE PO SCH (21:00)
[2017-04-16 21:31] LABS: BARBITURATES NEG (NEG); BENZODIAZEPINES NEG (NEG); CANNABINOIDS NEG (NEG); COCAINE NEG (NEG); METHADONE NEG (NEG); OPIATES POS (NEG); PHENCYCLIDINE NEG (NEG)
[2017-04-16 23:00] VITALS: BP 130/86
[2017-04-17] MEDS: MORPHINE SULFATE 2 MG/ML DISP.SYRIN. IV PRN ×3 (03:19→15:03)
[2017-04-17 04:45] LABS: BASO # 0.1 x10^3/uL (0.0-0.2); BASO % 1 % (0-3); EOS % 3 % (0-3); HEMATOCRIT 50.1 % (39.0-53.0); HEMOGLOBIN 16.8 g/dL (13.0-17.5); LYMPH # 3.7 x10^3/uL (1.0-4.8); LYMPH % 31 % (24-48); MEAN CORPUSCULAR HEMOGLOBIN 33 pg (25-35); MEAN CORPUSCULAR HGB CONC 34 g/dL (31-37); MEAN CORPUSCULAR VOLUME 100 fL (79-100); MONO % 7 % (0-9); NEUT % 58 % (31-73); PLATELET COUNT 181 x10^3/uL (140-400); RED BLOOD COUNT 5.04 x10^6/uL (4.30-5.70); RED CELL DISTRIBUTION WIDTH 13.9 % (11.5-14.5); WHITE BLOOD COUNT 11.7 x10^3/uL (4.0-11.0)
[2017-04-17 05:07] LABS: CALCIUM 8.9 mg/dL (8.5-10.1); CREATININE 1.2 mg/dL (0.7-1.3); GFR 67.1; POTASSIUM 4.2 mmol/L (3.5-5.1)
[2017-04-17 07:00] VITALS: BP 128/85
[2017-04-17] MEDS: carBAMazepine 200 MG TABLET PO SCH (09:00)
[2017-04-17] MEDS: ATENOLOL 50 MG TABLET. PO SCH (09:00)
--- NOTE | 2017-04-17 09:21 | EKG ---
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
[2017-04-17] MEDS ORDERED: REGADENOSON 0.4 MG/5 ML DISP.SYRIN. IV ONE (09:30)
[2017-04-17 11:00] VITALS: BP 126/89
[2017-04-17] MEDS ORDERED: hydrALAZINE 20 MG/ML VIAL. IVP PRN (11:45)
--- NOTE | 2017-04-17 13:22 | PDOC ---
PROGRESS NOTES Assessment Assessment Headache. Seizure, per Hx he provided. ACom small aneurysm, 3-4 mm HTN COPD Smoking x 28 years. RECOMMENDATIONS/PLAN: Start Dilantin 300 mg HS since 04/16/17. He discontinued Tegretol 3 weeks ago, and no need to resume because he stated he could not afford for this medication. EEG on 04/17. Symptomatic treatment for headache. FU with PCP. HISTORY OF THE PRESENT ILLNESS: 41-y-old male patient came to the ER of [facility] with complaints of headache. He stated he has aneurysm that causes him headaches and he said he could feel his aneurysm in his head blowing. His aneurysm is small 3 to 4 mm on imagine study. He said he had 6 GTC this year and he discontinued Tegretol about 3 weeks ago due to concerns of cost. He stated doing fine since in the hospital. No seizures. PAST MEDICAL HISTORY: Please see above. PAST SURGERY HISTORY: Lung surgery? ALLERGY: Unknown MEDICATIONS: Refer to [facility] HISTORY: Non contributory. SOCIAL HISTORY: Lives at home. Denies drinking, and illicit drug use. He smokes a half to 1 pack of cigarettes a day for 28 years. REVIEW OF SYSTEMS: Constitutional: No malnutrition, weight loss, cachexia. Head: No recent traumatic brain or head injury. Skin: No edema, or rash. Ear: No infection. Eyes: No vision loss or color blindness. Nose: No bleeding or purulent discharges. Hearing: No hearing decrease. Neck: No recent injury. Cardiac: HTN. Pulmonary: COPD. GI: No GI ulcer, GI bleeding. Urinary/genital: No dysuria, incontinence, urinary retention. Endocrinologic: No cousin face, craniofacial dysmorphism, polydactyly. Skeletomuscular: No muscular atrophy, deformity. Neurological: see HP. Psychiatric: Denies drug use/abuse. Otherwise, not [id number] review of systems. PHYSICAL EXAMINATION: General appearance is in no acute distress. HEENT: Normocephalic and nontraumatic. Eyes, nose, ears, and throat are unremarkable. Neck is supple. No lymphadenopathy. No crepitus. Cardiovascular: S1, S2, regular rate and rhythm. Pulmonary: Clear to auscultation bilaterally. Abdomen: Bowel sounds are positive. Abdomen is soft, nontender, and nondistended. Extremities: No rash, lesions, or edema. No restriction of range of motion NEUROLOGICAL EXAMINATION: Alert Oriented to time, place and person. PERRL. EOMI. CN: no focal findings. Muscle tone: within normal. Muscle strength: 5 DTR: 2 Plantar reflex: Flexor response bilaterally Gait: at his baseline normal. Sensory exam: no abnormal findings. No acute cerebellar signs elicited. F-T-N test fine. Objective Objective Vital Signs Date Time Temp Pulse Resp B/P (MAP) Pulse Ox O2 Delivery O2 Flow Rate FiO2 04/17/17 11:00 97.5 54 18 126/89 (101) 97 Room Air 97.5 Intake and Output 04/17/17 06:59 Intake Total 360 ml Balance 360 ml Intake Oral 360 ml # Voids 2 Vitals Signs Vitals VS - Last 72 Hours, by Label Date Time Temp Pulse Resp B/P (MAP) Pulse Ox O2 Delivery O2 Flow Rate FiO2 04/17/17 11:00 97.5 54 18 126/89 (101) 97 Room Air 97.5 04/17/17 08:00 Room Air 04/17/17 07:50 Room Air 04/17/17 07:15 Room Air 04/17/17 07:00 98.0 53 16 128/85 (99) 93 Room Air 98.0 04/17/17 03:49 92 04/17/17 03:19 92 Room Air 04/17/17 03:00 Room Air 04/16/17 23:20 92 Room Air 04/16/17 23:00 97.7 54 16 130/86 (101) 95 Room Air 97.7 04/16/17 20:26 80 123/78 04/16/17 20:00 Room Air 04/16/17 19:42 92 Room Air 04/16/17 19:00 96.8 58 16 123/72 (89) 98 Room Air 96.8 04/16/17 16:51 20 04/16/17 16:27 97.8 59 18 126/90 (102) 92 Room Air 97.8 04/16/17 16:24 Room Air 04/16/17 16:21 20 92 Room Air 04/16/17 15:28 51 18 122/78 (93) 98 Room Air 04/16/17 14:58 50 18 107/79 (88) 96 04/16/17 14:28 51 16 120/79 (93) 97 04/16/17 13:58 52 16 131/98 (109) 99 04/16/17 13:28 52 16 133/96 (108) 98 Room Air 04/16/17 12:58 52 16 130/88 (102) 98 Room Air 04/16/17 12:28 56 16 144/113 (123) 99 04/16/17 12:11 18 98 Room Air 04/16/17 11:58 59 18 146/93 (110) 98 Room Air 04/16/17 11:35 76 162/100 04/16/17 10:35 97.8 80 16 162/100 (120) 98 Room Air 97.8 Laboratory Laboratory Laboratory Tests Test 04/16/17 17:54 04/16/17 21:00 04/17/17 03:14 Erythrocyte Sedimentation Rate 0 (0-15) Urine Opiates Screen Pos (NEG) Urine Methadone Screen Neg (NEG) Urine Barbiturates Neg (NEG) Urine Phencyclidine Screen Neg (NEG) Urine Amphetamine/Methamphetamine Neg (NEG) Urine Benzodiazepines Screen Neg (NEG) Urine Cocaine Screen Neg (NEG) Urine Cannabinoids Screen Neg (NEG) Urine Ethyl Alcohol Neg (NEG) White Blood Count 11.7 x10^3/uL (4.0-11.0) Red Blood Count 5.04 x10^6/uL (4.30-5.70) Hemoglobin 16.8 g/dL (13.0-17.5) Hematocrit 50.1 % (39.0-53.0) Mean Corpuscular Volume 100 fL (79-100) Mean Corpuscular Hemoglobin 33 pg (25-35) Mean Corpuscular Hemoglobin Concent 34 g/dL (31-37) Red Cell Distribution Width 13.9 % (11.5-14.5) Platelet Count 181 x10^3/uL (140-400) Neutrophils (%) (Auto) 58 % (31-73) Lymphocytes (%) (Auto) 31 % (24-48) Monocytes (%) (Auto) 7 % (0-9) Eosinophils (%) (Auto) 3 % (0-3) Basophils (%) (Auto) 1 % (0-3) Neutrophils # (Auto) 6.8 x10^3uL (1.8-7.7) Lymphocytes # (Auto) 3.7 x10^3/uL (1.0-4.8) Monocytes # (Auto) 0.9 x10^3/uL (0.0-1.1) Eosinophils # (Auto) 0.3 x10^3/uL (0.0-0.7) Basophils # (Auto) 0.1 x10^3/uL (0.0-0.2) Sodium Level 140 mmol/L (136-145) Potassium Level 4.2 mmol/L (3.5-5.1) Chloride Level 103 mmol/L (98-107) Carbon Dioxide Level 32 mmol/L (21-32) Anion Gap 5 (6-14) Blood Urea Nitrogen 15 mg/dL (8-26) Creatinine 1.2 mg/dL (0.7-1.3) Estimated GFR (Cockcroft-Gault) 67.1 Glucose Level 85 mg/dL (70-99) Calcium Level 8.9 mg/dL (8.5-10.1) Medication Medications Current Medications Acetaminophen (Tylenol) 500 mg PRN QID PRN PO HEADACHE; Start 04/16/17 at 14:00 Acetaminophen/ Butalbital/ Caffeine (Fioricet) 1 tab PRN Q4HRS PRN PO MIGRAINE HEADACHE; Start 04/16/17 at 13:45 Acetaminophen/ Hydrocodone Bitart (Lortab 5/325) 1 tab PRN Q6HRS PRN PO PAIN; Start 04/16/17 at 13:45 Atenolol (Tenormin) 100 mg BID PO Last administered on 04/16/17 20:26; Start 04/16/17 at 21:00; Stop 04/17/17 at 11:37; Status DC Benzonatate (Tessalon Perle) 100 mg PRN TID PRN PO COUGH; Start 04/16/17 at 13: 45 Carbamazepine (TEGretol) 300 mg BID PO Last administered on 04/16/17 20:26; Start 04/16/17 at 14:00; Stop 04/17/17 at 10:09; Status DC Hydralazine HCl (Apresoline) 10 mg PRN Q4HRS PRN IVP ELEVATED BP, SEE COMMENTS ; Start 04/17/17 at 11:45 Morphine Sulfate 2 mg PRN Q2HR PRN IV pain Last administered on 04/17/17 07:15 ; Start 04/16/17 at 14:00 Ondansetron HCl (Zofran) 4 mg PRN Q6HRS PRN IV NAUSEA/VOMITING; Start 04/16/17 at 14:00 Phenytoin Sodium (Dilantin) 300 mg HS PO Last administered on 04/16/17 20:26; Start 04/16/17 at 21:00 Regadenoson (Lexiscan) 0.4 mg 1X ONCE IV Last administered on 04/17/17 11:23 ; Start 04/17/17 at 09:30; Stop 04/17/17 at 09:32; Status DC Zolpidem Tartrate (Ambien) 5 mg PRN QHS PRN PO INSOMNIA Last administered on 20:26; Start 04/16/17 at 14:00 Comment Review of Relevant I have reviewed the following items alea (where applicable) has been applied. RAKESH QUIÑONEZ MD Apr 17, 2017 13:22
--- NOTE | 2017-04-17 13:48 | PDOC ---
PROGRESS NOTES Chief Complaint Chief Complaint 1. Headaches, BOV, known small intracranial aneurysm 3-4mm 10/2016 CTA 2. SZ, non compliance to tegretol 3. Accelerated HTN, POA, better 4. SInus tachycradia/bradycardia- NO SIRS 5. CP, in the background accelerated hTN 6. smoKER plan: fu with neuro, card MPI today with card EEG today with neuro on dilantin only now as new meds dc atenolol given antoine, may need ppm dvt ppx History of Present Illness History of Present Illness still feels headache, 03/12, pt said always has headache no matter takes his meds or now he said off meds for 4ds (could be longer?) antoine sinus now still chest pressure pain Vitals Vitals Vital Signs Date Time Temp Pulse Resp B/P (MAP) Pulse Ox O2 Delivery O2 Flow Rate FiO2 04/17/17 11:00 97.5 54 18 126/89 (101) 97 Room Air 97.5 Physical Exam General: Alert, Oriented X3, Cooperative Heart: Regular rate, Normal S1, Normal S2 Abdomen: Normal bowel sounds, Soft Extremities: No edema Skin: No rashes, No breakdown, No significant lesion Labs LABS Laboratory Tests Test 04/16/17 17:54 04/16/17 21:00 04/17/17 03:14 Erythrocyte Sedimentation Rate 0 (0-15) Urine Opiates Screen Pos (NEG) Urine Methadone Screen Neg (NEG) Urine Barbiturates Neg (NEG) Urine Phencyclidine Screen Neg (NEG) Urine Amphetamine/Methamphetamine Neg (NEG) Urine Benzodiazepines Screen Neg (NEG) Urine Cocaine Screen Neg (NEG) Urine Cannabinoids Screen Neg (NEG) Urine Ethyl Alcohol Neg (NEG) White Blood Count 11.7 x10^3/uL (4.0-11.0) Red Blood Count 5.04 x10^6/uL (4.30-5.70) Hemoglobin 16.8 g/dL (13.0-17.5) Hematocrit 50.1 % (39.0-53.0) Mean Corpuscular Volume 100 fL (79-100) Mean Corpuscular Hemoglobin 33 pg (25-35) Mean Corpuscular Hemoglobin Concent 34 g/dL (31-37) Red Cell Distribution Width 13.9 % (11.5-14.5) Platelet Count 181 x10^3/uL (140-400) Neutrophils (%) (Auto) 58 % (31-73) Lymphocytes (%) (Auto) 31 % (24-48) Monocytes (%) (Auto) 7 % (0-9) Eosinophils (%) (Auto) 3 % (0-3) Basophils (%) (Auto) 1 % (0-3) Neutrophils # (Auto) 6.8 x10^3uL (1.8-7.7) Lymphocytes # (Auto) 3.7 x10^3/uL (1.0-4.8) Monocytes # (Auto) 0.9 x10^3/uL (0.0-1.1) Eosinophils # (Auto) 0.3 x10^3/uL (0.0-0.7) Basophils # (Auto) 0.1 x10^3/uL (0.0-0.2) Sodium Level 140 mmol/L (136-145) Potassium Level 4.2 mmol/L (3.5-5.1) Chloride Level 103 mmol/L (98-107) Carbon Dioxide Level 32 mmol/L (21-32) Anion Gap 5 (6-14) Blood Urea Nitrogen 15 mg/dL (8-26) Creatinine 1.2 mg/dL (0.7-1.3) Estimated GFR (Cockcroft-Gault) 67.1 Glucose Level 85 mg/dL (70-99) Calcium Level 8.9 mg/dL (8.5-10.1) Review of Systems Review of Systems no fever, chills, sob Assessment and Plan Assessmemt and Plan Problems Medical Problems: (1) Headache Status: Acute (2) Hypertension Status: Acute (3) Vision blurred Status: Acute Problems: Comment Review of Relevant I have reviewed the following items alea (where applicable) has been applied. Labs Laboratory Tests Test 04/16/17 11:05 04/16/17 12:07 04/16/17 17:54 04/16/17 21:00 White Blood Count 7.9 x10^3/uL (4.0-11.0) Red Blood Count 5.27 x10^6/uL (4.30-5.70) Hemoglobin 17.7 g/dL (13.0-17.5) Hematocrit 51.6 % (39.0-53.0) Mean Corpuscular Volume 98 fL (79-100) Mean Corpuscular Hemoglobin 34 pg (25-35) Mean Corpuscular Hemoglobin Concent 34 g/dL (31-37) Red Cell Distribution Width 13.7 % (11.5-14.5) Platelet Count 181 x10^3/uL (140-400) Neutrophils (%) (Auto) 62 % (31-73) Lymphocytes (%) (Auto) 25 % (24-48) Monocytes (%) (Auto) 8 % (0-9) Eosinophils (%) (Auto) 4 % (0-3) Basophils (%) (Auto) 1 % (0-3) Neutrophils # (Auto) 4.9 x10^3uL (1.8-7.7) Lymphocytes # (Auto) 2.0 x10^3/uL (1.0-4.8) Monocytes # (Auto) 0.6 x10^3/uL (0.0-1.1) Eosinophils # (Auto) 0.3 x10^3/uL (0.0-0.7) Basophils # (Auto) 0.1 x10^3/uL (0.0-0.2) Sodium Level 140 mmol/L (136-145) Potassium Level 4.4 mmol/L (3.5-5.1) Chloride Level 103 mmol/L (98-107) Carbon Dioxide Level 32 mmol/L (21-32) Anion Gap 5 (6-14) Blood Urea Nitrogen 9 mg/dL (8-26) Creatinine 1.2 mg/dL (0.7-1.3) Estimated GFR (Cockcroft-Gault) 67.1 BUN/Creatinine Ratio 8 (6-20) Glucose Level 95 mg/dL (70-99) Calcium Level 9.4 mg/dL (8.5-10.1) Total Bilirubin 0.6 mg/dL (0.2-1.0) Aspartate Amino Transf (AST/SGOT) 60 U/L (15-37) Alanine Aminotransferase (ALT/SGPT) 83 U/L (16-63) Alkaline Phosphatase 64 U/L (46-116) Troponin I Quantitative < 0.017 ng/mL (0.000-0.055) Total Protein 7.8 g/dL (6.4-8.2) Albumin 4.1 g/dL (3.4-5.0) Albumin/Globulin Ratio 1.1 (1.0-1.7) Urine Collection Type Unknown Urine Color Yellow Urine Clarity Clear Urine pH 7.0 Urine Specific [place] <=1.005 Urine Protein Negative mg/dL (NEG-TRACE) Urine Glucose (UA) Negative mg/dL (NEG) Urine Ketones (Stick) Negative mg/dL (NEG) Urine Blood Negative (NEG) Urine Nitrite Negative (NEG) Urine Bilirubin Negative (NEG) Urine Urobilinogen Dipstick 0.2 mg/dL (0.2 mg/dL) Urine Leukocyte Esterase Negative (NEG) Urine RBC 0 /HPF (0-2) Urine WBC 0 /HPF (0-4) Urine Bacteria 0 /HPF (0-FEW) Erythrocyte Sedimentation Rate 0 (0-15) Urine Opiates Screen Pos (NEG) Urine Methadone Screen Neg (NEG) Urine Barbiturates Neg (NEG) Urine Phencyclidine Screen Neg (NEG) Urine Amphetamine/Methamphetamine Neg (NEG) Urine Benzodiazepines Screen Neg (NEG) Urine Cocaine Screen Neg (NEG) Urine Cannabinoids Screen Neg (NEG) Urine Ethyl Alcohol Neg (NEG) Test 04/17/17 03:14 White Blood Count 11.7 x10^3/uL (4.0-11.0) Red Blood Count 5.04 x10^6/uL (4.30-5.70) Hemoglobin 16.8 g/dL (13.0-17.5) Hematocrit 50.1 % (39.0-53.0) Mean Corpuscular Volume 100 fL (79-100) Mean Corpuscular Hemoglobin 33 pg (25-35) Mean Corpuscular Hemoglobin Concent 34 g/dL (31-37) Red Cell Distribution Width 13.9 % (11.5-14.5) Platelet Count 181 x10^3/uL (140-400) Neutrophils (%) (Auto) 58 % (31-73) Lymphocytes (%) (Auto) 31 % (24-48) Monocytes (%) (Auto) 7 % (0-9) Eosinophils (%) (Auto) 3 % (0-3) Basophils (%) (Auto) 1 % (0-3) Neutrophils # (Auto) 6.8 x10^3uL (1.8-7.7) Lymphocytes # (Auto) 3.7 x10^3/uL (1.0-4.8) Monocytes # (Auto) 0.9 x10^3/uL (0.0-1.1) Eosinophils # (Auto) 0.3 x10^3/uL (0.0-0.7) Basophils # (Auto) 0.1 x10^3/uL (0.0-0.2) Sodium Level 140 mmol/L (136-145) Potassium Level 4.2 mmol/L (3.5-5.1) Chloride Level 103 mmol/L (98-107) Carbon Dioxide Level 32 mmol/L (21-32) Anion Gap 5 (6-14) Blood Urea Nitrogen 15 mg/dL (8-26) Creatinine 1.2 mg/dL (0.7-1.3) Estimated GFR (Cockcroft-Gault) 67.1 Glucose Level 85 mg/dL (70-99) Calcium Level 8.9 mg/dL (8.5-10.1) Laboratory Tests Test 04/16/17 17:54 04/16/17 21:00 04/17/17 03:14 Erythrocyte Sedimentation Rate 0 (0-15) Urine Opiates Screen Pos (NEG) Urine Methadone Screen Neg (NEG) Urine Barbiturates Neg (NEG) Urine Phencyclidine Screen Neg (NEG) Urine Amphetamine/Methamphetamine Neg (NEG) Urine Benzodiazepines Screen Neg (NEG) Urine Cocaine Screen Neg (NEG) Urine Cannabinoids Screen Neg (NEG) Urine Ethyl Alcohol Neg (NEG) White Blood Count 11.7 x10^3/uL (4.0-11.0) Red Blood Count 5.04 x10^6/uL (4.30-5.70) Hemoglobin 16.8 g/dL (13.0-17.5) Hematocrit 50.1 % (39.0-53.0) Mean Corpuscular Volume 100 fL (79-100) Mean Corpuscular Hemoglobin 33 pg (25-35) Mean Corpuscular Hemoglobin Concent 34 g/dL (31-37) Red Cell Distribution Width 13.9 % (11.5-14.5) Platelet Count 181 x10^3/uL (140-400) Neutrophils (%) (Auto) 58 % (31-73) Lymphocytes (%) (Auto) 31 % (24-48) Monocytes (%) (Auto) 7 % (0-9) Eosinophils (%) (Auto) 3 % (0-3) Basophils (%) (Auto) 1 % (0-3) Neutrophils # (Auto) 6.8 x10^3uL (1.8-7.7) Lymphocytes # (Auto) 3.7 x10^3/uL (1.0-4.8) Monocytes # (Auto) 0.9 x10^3/uL (0.0-1.1) Eosinophils # (Auto) 0.3 x10^3/uL (0.0-0.7) Basophils # (Auto) 0.1 x10^3/uL (0.0-0.2) Sodium Level 140 mmol/L (136-145) Potassium Level 4.2 mmol/L (3.5-5.1) Chloride Level 103 mmol/L (98-107) Carbon Dioxide Level 32 mmol/L (21-32) Anion Gap 5 (6-14) Blood Urea Nitrogen 15 mg/dL (8-26) Creatinine 1.2 mg/dL (0.7-1.3) Estimated GFR (Cockcroft-Gault) 67.1 Glucose Level 85 mg/dL (70-99) Calcium Level 8.9 mg/dL (8.5-10.1) Medications Current Medications Atenolol (Tenormin) 50 mg 1X ONCE PO Last administered on 04/16/17 11:35; Start 04/16/17 at 11:30; Stop 04/16/17 at 11:31; Status DC Acetaminophen/ Hydrocodone Bitart (Lortab 5/325) 1 tab 1X ONCE PO Last administered on 04/16/17 12:11; Start 04/16/17 at 12:15; Stop 04/16/17 at 12:16 ; Status DC Clonidine HCl (Catapres) 0.1 mg PRN Q2HR PRN PO elevated BP; Start 04/16/17 at 13:00 Benzonatate (Tessalon Perle) 100 mg PRN TID PRN PO COUGH; Start 04/16/17 at 13: 45 Carbamazepine (TEGretol) 300 mg BID PO Last administered on 04/16/17 20:26; Start 04/16/17 at 14:00; Stop 04/17/17 at 10:09; Status DC Acetaminophen/ Hydrocodone Bitart (Lortab 5/325) 1 tab PRN Q6HRS PRN PO PAIN; Start 04/16/17 at 13:45 Atenolol (Tenormin) 100 mg BID PO Last administered on 04/16/17 20:26; Start 04/16/17 at 21:00; Stop 04/17/17 at 11:37; Status DC Acetaminophen/ Butalbital/ Caffeine (Fioricet) 1 tab PRN Q4HRS PRN PO MIGRAINE HEADACHE; Start 04/16/17 at 13:45 Zolpidem Tartrate (Ambien) 5 mg PRN QHS PRN PO INSOMNIA Last administered on 20:26; Start 04/16/17 at 14:00 Morphine Sulfate 2 mg PRN Q2HR PRN IV pain Last administered on 04/17/17 07:15 ; Start 04/16/17 at 14:00 Ondansetron HCl (Zofran) 4 mg PRN Q6HRS PRN IV NAUSEA/VOMITING; Start 04/16/17 at 14:00 Acetaminophen (Tylenol) 500 mg PRN QID PRN PO HEADACHE; Start 04/16/17 at 14:00 Phenytoin Sodium (Dilantin) 300 mg HS PO Last administered on 04/16/17 20:26; Start 04/16/17 at 21:00 Regadenoson (Lexiscan) 0.4 mg 1X ONCE IV Last administered on 04/17/17 11:23 ; Start 04/17/17 at 09:30; Stop 04/17/17 at 09:32; Status DC Hydralazine HCl (Apresoline) 10 mg PRN Q4HRS PRN IVP ELEVATED BP, SEE COMMENTS ; Start 04/17/17 at 11:45 Active Scripts Active [place] 5-325 Tablet (Acetaminophen/Hydrocodone Bitart) 1 Each Tablet 1 Tab PO PRN Q6HRS PRN Tessalon Perle (Benzonatate) 100 Mg Capsule 1 Cap PO TID PRN Fioricet 50-300-40 Mg Capsule (Butalb/Acetaminophen/Caffeine) 1 Each Capsule 1 Each PO PRN Q4HRS PRN Atenolol 100 Mg Tablet 1 Tab PO BID Reported Tegretol (Carbamazepine) 200 Mg Tablet 0.5 Tab PO BID Vitals/I & O Vital Sign - Last 24 Hours 04/16/17 04/16/17 04/16/17 04/16/17 13:58 14:28 14:58 15:28 Pulse 52 51 50 51 Resp 16 16 18 18 B/P (MAP) 131/98 (109) 120/79 (93) 107/79 (88) 122/78 (93) Pulse Ox 99 97 96 98 O2 Delivery Room Air 04/16/17 04/16/17 04/16/17 04/16/17 16:21 16:24 16:27 16:51 Temp 97.8 97.8 Pulse 59 Resp 20 18 20 B/P (MAP) 126/90 (102) Pulse Ox 92 92 O2 Delivery Room Air Room Air Room Air 04/16/17 04/16/17 04/16/17 04/16/17 19:00 19:42 20:00 20:26 Temp 96.8 96.8 Pulse 58 80 Resp 16 B/P (MAP) 123/72 (89) 123/78 Pulse Ox 98 92 O2 Delivery Room Air Room Air Room Air 04/16/17 04/16/17 04/17/17 04/17/17 23:00 23:20 03:00 03:19 Temp 97.7 97.7 Pulse 54 Resp 16 B/P (MAP) 130/86 (101) Pulse Ox 95 92 92 O2 Delivery Room Air Room Air Room Air Room Air 04/17/17 04/17/17 04/17/17 04/17/17 03:49 07:00 07:15 07:50 Temp 98.0 98.0 Pulse 53 Resp 16 B/P (MAP) 128/85 (99) Pulse Ox 92 93 O2 Delivery Room Air Room Air Room Air 04/17/17 04/17/17 08:00 11:00 Temp 97.5 97.5 Pulse 54 Resp 18 B/P (MAP) 126/89 (101) Pulse Ox 97 O2 Delivery Room Air Room Air Intake and Output 04/16/17 04/16/17 04/17/17 15:00 23:00 07:00 Intake Total 360 ml 0 ml Balance 360 ml 0 ml MIKHAIL BARNES MD Apr 17, 2017 13:48
[2017-04-17] MEDS ORDERED: ENOXAPARIN 40 MG/0.4 ML SYRINGE. SQ SCH (14:00)
--- NOTE | 2017-04-17 14:03 | RAD ---
APPROVED REPORT Test Type: Pharmacological Stress Nurse/Tech: Yanique Munroe R.N. Test Indications: Chest pain, palpitations Cardiac History: HTN Medications: SEE EMR Medical History: COPD, Smoker, Seizures, TIA Resting ECG: SB Resting Heart Rate: 43 bpm Resting Blood Pressure: 135/67mmHg Pretest Chest Pain: None Nurse/Tech Notes S1S2, lungs CTA, denied chest pain, dizziness and SOA. Consent: The procedure was explained to the patient in lay terms. Informed consent was witnessed. Christiano eout was entered into [employer]. History and Stress Test performed by Yanique Munroe R.N. Pharm. Details Pharmacologic stress testing was performed using 0.4mg per 5ml of regadenoson given intravenously ove r 7-10 seconds. Stress Symptoms Slightly SOA. POST EXERCISE Reason for Termination: Infusion complete Max HR: 100 bpm Max Blood Pressure: 139/93mmHg Blood Pressure response to exercise: Abnormal blood pressure response during stress.Normal blood pres sure response during stress. Heart Rate response to exercise: Normal Chest Pain: No. Arrhythmia: No. ST Change: No. INTERPRETATION Stress EKG Conclusion: Baseline EKG showed sinus rhythm. No ischemic changes at peak stress. No arr hythmias. Imaging Protocol IMAGE PROTOCOL: Rest Tc-99m/stress Tc-99m 1 day Rest: Stress: Viability: Radiopharm.Tc99m [id number] Sestamibi [id number] 33mCi Duration 15min. 10min. Img Date 04/17/2017 04/17/2017 Inj-Img [id number]. 60min. Rest Admin Site:IV - Right AntecubitalAdministrator:Juanita Wooten, RT (R)(N) Stress Admin Site: IV - Right AntecubitalAdministrator: BENEDICTO Odell, ARRT (R)(N) STRESS DATA End Diast. Vol.128.0mlAv. Heart Rate52.0bpm End Syst. Vol.49.0mlCO Index BSA0.0L/min Myocardial Cnis078.0gEject. Mcwetzzp26.0% Stress Rates Pk. Fill Rate2.29EDV/secLVtime Pk. Fill 224.66msec Pk. Empty Rate2.75ESV/secLVtime Pk. Eechk880.68msec 1/3 Pk. Fill1.07EDV/sec Stress Scores Regional WT2.00Summed WT19.00 Regional WM0.00Summed WM1.00 Study quality was good. Left Ventricular size was Normal at Rest and Stress. Lung uptake was Normal. Left Ventricular ejection fraction is 62%. The rest and stress images show normal perfusion, normal contraction and thickening. LV Perf. Quant 17 Seg. SSS3.00 17 Seg. SRS4.00 17 Seg. SDS1.00 Stress Defect Extent (% LAD)13.80Rest Defect Extent (% LAD)9.40Rev. Defect Extent (% LAD)3.10 Stress Defect Extent (% LCX) 5.00Rest Defect Extent (% LCX)0.00Rev. Defect Extent (% LCX)0.00 Stress Defect Extent (% RCA)0.00Rest Defect Extent (% RCA)0.00Rev. Defect Extent (% RCA)0.00 Stress Defect Extent (% EVELYNE)7.20Rest Defect Extent (% EVELYNE)5.20Rev. Defect Extent (% EVELYNE)1.10 Conclusion 1. Regadenoson cardioisotope stress test did not show any evidence of ischemia or infarct. 2. Normal left ventricular systolic function with ejection fraction calculated at 62%. 3. Low risk for cardiac events.
[2017-04-17 15:00] VITALS: BP 106/73
--- NOTE | 2017-04-17 15:52 | PDOC ---
PROGRESS NOTES Subjective Subjective No chest pains today. The patient had an MPI done that shows a left ventricular ejection fraction was 62% and no apparent evidence of ischemia. Objective Objective Vital Signs Date Time Temp Pulse Resp B/P (MAP) Pulse Ox O2 Delivery O2 Flow Rate FiO2 04/17/17 15:48 Room Air 04/17/17 15:00 97.4 56 18 106/73 (84) 96 97.4 Intake and Output 04/17/17 07:00 Intake Total 360 ml Balance 360 ml Intake Oral 360 ml # Voids 2 Physical Exam Physical Exam No changes in cardiac exam Assessment Assessment Patient stable cardiac-toro at this time. I would not recommend any further cardiac workup for now. Thank you Comment Review of Relevant I have reviewed the following items alea (where applicable) has been applied. Labs Laboratory Tests Test 04/16/17 11:05 04/16/17 12:07 04/16/17 17:54 04/16/17 21:00 White Blood Count 7.9 x10^3/uL (4.0-11.0) Red Blood Count 5.27 x10^6/uL (4.30-5.70) Hemoglobin 17.7 g/dL (13.0-17.5) Hematocrit 51.6 % (39.0-53.0) Mean Corpuscular Volume 98 fL (79-100) Mean Corpuscular Hemoglobin 34 pg (25-35) Mean Corpuscular Hemoglobin Concent 34 g/dL (31-37) Red Cell Distribution Width 13.7 % (11.5-14.5) Platelet Count 181 x10^3/uL (140-400) Neutrophils (%) (Auto) 62 % (31-73) Lymphocytes (%) (Auto) 25 % (24-48) Monocytes (%) (Auto) 8 % (0-9) Eosinophils (%) (Auto) 4 % (0-3) Basophils (%) (Auto) 1 % (0-3) Neutrophils # (Auto) 4.9 x10^3uL (1.8-7.7) Lymphocytes # (Auto) 2.0 x10^3/uL (1.0-4.8) Monocytes # (Auto) 0.6 x10^3/uL (0.0-1.1) Eosinophils # (Auto) 0.3 x10^3/uL (0.0-0.7) Basophils # (Auto) 0.1 x10^3/uL (0.0-0.2) Sodium Level 140 mmol/L (136-145) Potassium Level 4.4 mmol/L (3.5-5.1) Chloride Level 103 mmol/L (98-107) Carbon Dioxide Level 32 mmol/L (21-32) Anion Gap 5 (6-14) Blood Urea Nitrogen 9 mg/dL (8-26) Creatinine 1.2 mg/dL (0.7-1.3) Estimated GFR (Cockcroft-Gault) 67.1 BUN/Creatinine Ratio 8 (6-20) Glucose Level 95 mg/dL (70-99) Calcium Level 9.4 mg/dL (8.5-10.1) Total Bilirubin 0.6 mg/dL (0.2-1.0) Aspartate Amino Transf (AST/SGOT) 60 U/L (15-37) Alanine Aminotransferase (ALT/SGPT) 83 U/L (16-63) Alkaline Phosphatase 64 U/L (46-116) Troponin I Quantitative < 0.017 ng/mL (0.000-0.055) Total Protein 7.8 g/dL (6.4-8.2) Albumin 4.1 g/dL (3.4-5.0) Albumin/Globulin Ratio 1.1 (1.0-1.7) Urine Collection Type Unknown Urine Color Yellow Urine Clarity Clear Urine pH 7.0 Urine Specific [place] <=1.005 Urine Protein Negative mg/dL (NEG-TRACE) Urine Glucose (UA) Negative mg/dL (NEG) Urine Ketones (Stick) Negative mg/dL (NEG) Urine Blood Negative (NEG) Urine Nitrite Negative (NEG) Urine Bilirubin Negative (NEG) Urine Urobilinogen Dipstick 0.2 mg/dL (0.2 mg/dL) Urine Leukocyte Esterase Negative (NEG) Urine RBC 0 /HPF (0-2) Urine WBC 0 /HPF (0-4) Urine Bacteria 0 /HPF (0-FEW) Erythrocyte Sedimentation Rate 0 (0-15) Urine Opiates Screen Pos (NEG) Urine Methadone Screen Neg (NEG) Urine Barbiturates Neg (NEG) Urine Phencyclidine Screen Neg (NEG) Urine Amphetamine/Methamphetamine Neg (NEG) Urine Benzodiazepines Screen Neg (NEG) Urine Cocaine Screen Neg (NEG) Urine Cannabinoids Screen Neg (NEG) Urine Ethyl Alcohol Neg (NEG) Test 04/17/17 03:14 White Blood Count 11.7 x10^3/uL (4.0-11.0) Red Blood Count 5.04 x10^6/uL (4.30-5.70) Hemoglobin 16.8 g/dL (13.0-17.5) Hematocrit 50.1 % (39.0-53.0) Mean Corpuscular Volume 100 fL (79-100) Mean Corpuscular Hemoglobin 33 pg (25-35) Mean Corpuscular Hemoglobin Concent 34 g/dL (31-37) Red Cell Distribution Width 13.9 % (11.5-14.5) Platelet Count 181 x10^3/uL (140-400) Neutrophils (%) (Auto) 58 % (31-73) Lymphocytes (%) (Auto) 31 % (24-48) Monocytes (%) (Auto) 7 % (0-9) Eosinophils (%) (Auto) 3 % (0-3) Basophils (%) (Auto) 1 % (0-3) Neutrophils # (Auto) 6.8 x10^3uL (1.8-7.7) Lymphocytes # (Auto) 3.7 x10^3/uL (1.0-4.8) Monocytes # (Auto) 0.9 x10^3/uL (0.0-1.1) Eosinophils # (Auto) 0.3 x10^3/uL (0.0-0.7) Basophils # (Auto) 0.1 x10^3/uL (0.0-0.2) Sodium Level 140 mmol/L (136-145) Potassium Level 4.2 mmol/L (3.5-5.1) Chloride Level 103 mmol/L (98-107) Carbon Dioxide Level 32 mmol/L (21-32) Anion Gap 5 (6-14) Blood Urea Nitrogen 15 mg/dL (8-26) Creatinine 1.2 mg/dL (0.7-1.3) Estimated GFR (Cockcroft-Gault) 67.1 Glucose Level 85 mg/dL (70-99) Calcium Level 8.9 mg/dL (8.5-10.1) Laboratory Tests Test 04/16/17 17:54 04/16/17 21:00 04/17/17 03:14 Erythrocyte Sedimentation Rate 0 (0-15) Urine Opiates Screen Pos (NEG) Urine Methadone Screen Neg (NEG) Urine Barbiturates Neg (NEG) Urine Phencyclidine Screen Neg (NEG) Urine Amphetamine/Methamphetamine Neg (NEG) Urine Benzodiazepines Screen Neg (NEG) Urine Cocaine Screen Neg (NEG) Urine Cannabinoids Screen Neg (NEG) Urine Ethyl Alcohol Neg (NEG) White Blood Count 11.7 x10^3/uL (4.0-11.0) Red Blood Count 5.04 x10^6/uL (4.30-5.70) Hemoglobin 16.8 g/dL (13.0-17.5) Hematocrit 50.1 % (39.0-53.0) Mean Corpuscular Volume 100 fL (79-100) Mean Corpuscular Hemoglobin 33 pg (25-35) Mean Corpuscular Hemoglobin Concent 34 g/dL (31-37) Red Cell Distribution Width 13.9 % (11.5-14.5) Platelet Count 181 x10^3/uL (140-400) Neutrophils (%) (Auto) 58 % (31-73) Lymphocytes (%) (Auto) 31 % (24-48) Monocytes (%) (Auto) 7 % (0-9) Eosinophils (%) (Auto) 3 % (0-3) Basophils (%) (Auto) 1 % (0-3) Neutrophils # (Auto) 6.8 x10^3uL (1.8-7.7) Lymphocytes # (Auto) 3.7 x10^3/uL (1.0-4.8) Monocytes # (Auto) 0.9 x10^3/uL (0.0-1.1) Eosinophils # (Auto) 0.3 x10^3/uL (0.0-0.7) Basophils # (Auto) 0.1 x10^3/uL (0.0-0.2) Sodium Level 140 mmol/L (136-145) Potassium Level 4.2 mmol/L (3.5-5.1) Chloride Level 103 mmol/L (98-107) Carbon Dioxide Level 32 mmol/L (21-32) Anion Gap 5 (6-14) Blood Urea Nitrogen 15 mg/dL (8-26) Creatinine 1.2 mg/dL (0.7-1.3) Estimated GFR (Cockcroft-Gault) 67.1 Glucose Level 85 mg/dL (70-99) Calcium Level 8.9 mg/dL (8.5-10.1) Medications Current Medications Atenolol (Tenormin) 50 mg 1X ONCE PO Last administered on 04/16/17 11:35; Start 04/16/17 at 11:30; Stop 04/16/17 at 11:31; Status DC Acetaminophen/ Hydrocodone Bitart (Lortab 5/325) 1 tab 1X ONCE PO Last administered on 04/16/17 12:11; Start 04/16/17 at 12:15; Stop 04/16/17 at 12:16 ; Status DC Clonidine HCl (Catapres) 0.1 mg PRN Q2HR PRN PO elevated BP; Start 04/16/17 at 13:00; Stop 04/17/17 at 13:45; Status DC Benzonatate (Tessalon Perle) 100 mg PRN TID PRN PO COUGH; Start 04/16/17 at 13: 45 Carbamazepine (TEGretol) 300 mg BID PO Last administered on 04/16/17 20:26; Start 04/16/17 at 14:00; Stop 04/17/17 at 10:09; Status DC Acetaminophen/ Hydrocodone Bitart (Lortab 5/325) 1 tab PRN Q6HRS PRN PO PAIN; Start 04/16/17 at 13:45 Atenolol (Tenormin) 100 mg BID PO Last administered on 04/16/17 20:26; Start 04/16/17 at 21:00; Stop 04/17/17 at 11:37; Status DC Acetaminophen/ Butalbital/ Caffeine (Fioricet) 1 tab PRN Q4HRS PRN PO MIGRAINE HEADACHE; Start 04/16/17 at 13:45 Zolpidem Tartrate (Ambien) 5 mg PRN QHS PRN PO INSOMNIA Last administered on 20:26; Start 04/16/17 at 14:00 Morphine Sulfate 2 mg PRN Q2HR PRN IV pain Last administered on 04/17/17 15:03 ; Start 04/16/17 at 14:00 Ondansetron HCl (Zofran) 4 mg PRN Q6HRS PRN IV NAUSEA/VOMITING; Start 04/16/17 at 14:00 Acetaminophen (Tylenol) 500 mg PRN QID PRN PO HEADACHE; Start 04/16/17 at 14:00 Phenytoin Sodium (Dilantin) 300 mg HS PO Last administered on 04/16/17 20:26; Start 04/16/17 at 21:00 Regadenoson (Lexiscan) 0.4 mg 1X ONCE IV Last administered on 04/17/17 11:23 ; Start 04/17/17 at 09:30; Stop 04/17/17 at 09:32; Status DC Hydralazine HCl (Apresoline) 10 mg PRN Q4HRS PRN IVP ELEVATED BP, SEE COMMENTS ; Start 04/17/17 at 11:45 Enoxaparin Sodium (Lovenox 40mg Syringe) 40 mg Q24H SQ Last administered on 15:01; Start 04/17/17 at 14:00 Active Scripts Active [place] 5-325 Tablet (Acetaminophen/Hydrocodone Bitart) 1 Each Tablet 1 Tab PO PRN Q6HRS PRN Tessalon Perle (Benzonatate) 100 Mg Capsule 1 Cap PO TID PRN Fioricet 50-300-40 Mg Capsule (Butalb/Acetaminophen/Caffeine) 1 Each Capsule 1 Each PO PRN Q4HRS PRN Atenolol 100 Mg Tablet 1 Tab PO BID Reported Tegretol (Carbamazepine) 200 Mg Tablet 0.5 Tab PO BID Vitals/I & O Vital Sign - Last 24 Hours 04/16/17 04/16/17 04/16/17 04/16/17 16:21 16:24 16:27 16:51 Temp 97.8 97.8 Pulse 59 Resp 20 18 20 B/P (MAP) 126/90 (102) Pulse Ox 92 92 O2 Delivery Room Air Room Air Room Air 04/16/17 04/16/17 04/16/17 04/16/17 19:00 19:42 20:00 20:26 Temp 96.8 96.8 Pulse 58 80 Resp 16 B/P (MAP) 123/72 (89) 123/78 Pulse Ox 98 92 O2 Delivery Room Air Room Air Room Air 04/16/17 04/16/17 04/17/17 04/17/17 23:00 23:20 03:00 03:19 Temp 97.7 97.7 Pulse 54 Resp 16 B/P (MAP) 130/86 (101) Pulse Ox 95 92 92 O2 Delivery Room Air Room Air Room Air Room Air 04/17/17 04/17/17 04/17/17 04/17/17 03:49 07:00 07:15 08:00 Temp 98.0 98.0 Pulse 53 Resp 16 B/P (MAP) 128/85 (99) Pulse Ox 92 93 O2 Delivery Room Air Room Air Room Air 04/17/17 04/17/17 04/17/17 04/17/17 11:00 15:00 15:03 15:48 Temp 97.5 97.4 97.5 97.4 Pulse 54 56 Resp 18 18 B/P (MAP) 126/89 (101) 106/73 (84) Pulse Ox 97 96 O2 Delivery Room Air Room Air Room Air Room Air Intake and Output 04/16/17 04/16/17 04/17/17 15:00 23:00 07:00 Intake Total 360 ml 0 ml Balance 360 ml 0 ml MILKA LUCIA MD Apr 17, 2017 15:52
--- NOTE | 2017-04-18 16:53 | PDOC3 ---
Discharge Summary [facility] Date of Admission: Apr 16, 2017 Discharge Date: Apr 17, 2017 Admitting Diagnosis 1. Headaches, BOV, known small intracranial aneurysm 3-4mm 10/2016 CTA 2. SZ, non compliance to tegretol 3. Accelerated HTN, POA, better 4. SInus tachycradia/bradycardia- NO SIRS 5. CP, in the background accelerated hTN 6. smoKER Problems: Final Diagnosis CONSULTS card neuro Brief Hospital Course Mr. Koehler is a 41 old M, with 3mm brain aneurysm chronically, seizure, comes for headache, chest pain, seizure. He is off seizure meds for 3 weeks, now changed to dilantin by neuro. He always has headache chronically no matter if takes meds or not. MPI neg dc home, order entered by dr. Redman propulsion generator repairer later at night. dc time 35min (daytime visit) General: Alert, Oriented X3, Cooperative Heart: Regular rate, Normal S1, Normal S2 Abdomen: Normal bowel sounds, Soft Extremities: No edema Skin: No rashes, No breakdown, No significant lesion Patient History: FH: CHF (congestive heart failure) 32 MOTHER Hypertension 32 MOTHER Problems: Disposition home CONDITION AT DISCHARGE: Improved Diet regular Scheduled Atenolol (Atenolol), 1 TAB PO BID Carbamazepine (Tegretol), 0.5 TAB PO BID, (Reported) Scheduled PRN Benzonatate (Tessalon Perle), 1 CAP PO TID PRN for COUGH Butalb/Acetaminophen/Caffeine (Fioricet 50-300-40 Mg Capsule), 1 EACH PO PRN Q4HRS PRN for MIGRAINE HEADACHE Hydrocodone/Apap 5-325 ([place] 5-325 Tablet), 1 TAB PO PRN Q6HRS PRN for PAIN Discontinued Medications Atenolol (Atenolol), 1 TAB PO DAILY MIKHAIL BARNES MD Apr 18, 2017 16:53
== END 2017-04-17 17:50 | disposition home or self-care (01) | DRG 101 ==
LOC: ER 10:25 → 5 NORTH 13:31
PROVIDERS: ADMIT Internal Medicine; ATTEND Internal Medicine
DX: R56.9 Unspecified convulsions (principal); F17.210 Nicotine dependence, cigarettes, uncomplicated; G43.909 Migraine, unspecified, not intractable, without status migrainosus; I67.1 Cerebral aneurysm, nonruptured; J44.9 Chronic obstructive pulmonary disease, unspecified; I10 Essential (primary) hypertension; H53.8 Other visual disturbances; Z88.8 Allergy status to other drugs, medicaments and biological substances; Z91.19 Patient's noncompliance with other medical treatment and regimen; Z82.49 Family history of ischemic heart disease and other diseases of the circulatory system
CPT/HCPCS: 36415; 70450; 71010; 78452; 80048; 80053; 81001; 84484; 85027; 85651; 93005; 93017; 96374; 96375; 96376; 99406; A9500; G0481; J1650; J2270; J2785; 99285-25

== ENCOUNTER 2017-05-21 10:53 | Observation (INO) | payer SELFPAY ==
[~2017-05-21] VITALS: Ht 180.3 cm; Wt 76.3 kg
[~2017-05-21 10:53] MED LIST changes: +ATEN50TA PO
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
[2017-05-21] MEDS ORDERED: ASPIRIN CHEWABLE 81 MG TABLET. PO ONE (11:15)
[2017-05-21] MEDS: NITROGLYCERIN SUBLINGUAL 0.4 MG BOTTLE OF 25. SL PRN ×2 (11:31→11:39)
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
[2017-05-21 11:39] LABS: CALCIUM 9.3 mg/dL (8.5-10.1); CREATININE 1.1 mg/dL (0.7-1.3); GFR 74.1; POTASSIUM 4.1 mmol/L (3.5-5.1)
[2017-05-21 11:41] LABS: BASO # 0.1 x10^3/uL (0.0-0.2); BASO % 1 % (0-3); EOS % 2 % (0-3); HEMATOCRIT 52.1 % (39.0-53.0); HEMOGLOBIN 18.1 g/dL (13.0-17.5); LYMPH # 1.6 x10^3/uL (1.0-4.8); LYMPH % 24 % (24-48); MEAN CORPUSCULAR HEMOGLOBIN 34 pg (25-35); MEAN CORPUSCULAR HGB CONC 35 g/dL (31-37); MEAN CORPUSCULAR VOLUME 98 fL (79-100); MONO % 8 % (0-9); NEUT % 65 % (31-73); PLATELET COUNT 184 x10^3/uL (140-400); RED BLOOD COUNT 5.35 x10^6/uL (4.30-5.70); RED CELL DISTRIBUTION WIDTH 13.4 % (11.5-14.5)
[2017-05-21 11:43] LABS: DIRECT BILIRUBIN 0.1 mg/dL (0.0-0.2); MAGNESIUM 1.9 mg/dL (1.8-2.4); TOTAL BILIRUBIN 0.6 mg/dL (0.2-1.0)
[2017-05-21 11:54] LABS: CKMB MASS 0.5 ng/mL (0.0-3.6); INR 1.1 (0.8-1.1); PROTHROMBIN TIME PATIENT 13.1 SEC (11.7-14.0)
[2017-05-21] MEDS ORDERED: ONDANSETRON PF 4 MG/2 ML VIAL. IV ONE (12:30)
[2017-05-21] MEDS: MORPHINE SULFATE 4 MG/ML DISP.SYRIN. IV/SQ PRN ×2 (12:48→13:29)
[2017-05-21] MEDS ORDERED: ONDANSETRON PF 4 MG/2 ML VIAL. IV PRN ×2 (14:00→14:45)
--- NOTE | 2017-05-21 14:04 | EKG ---
[facility] [address] [place] [address] Test Date: 2017-05-21 Test Time: 11:01:36 Pat Name: YARI MARTIN Department: Room: Gender: M Billet Header: : 1975 Requested By: SAMSON DIAZ Order Number: [id number] Reading MD: Measurements Intervals [place] Rate: 86 P: 49 NV: 144 QRS: -83 QRSD: 92 T: 31 QT: 344 QTc: 414 Interpretive Statements SINUS RHYTHM ABNORMAL LEFT AXIS DEVIATION S1,S2,S3 PATTERN LEFT ANTERIOR FASCICULAR BLOCK QRS(T) CONTOUR ABNORMALITY CANNOT RULE OUT ANTEROSEPTAL MYOCARDIAL DAMAGE RI6.01 Unconfirmed report No previous ECG available for comparison
--- NOTE | 2017-05-21 14:17 | PDOC1 ---
History and Physical Date of Admission Date of Admission 05/21/17 Identification/Chief Complaint Chief Complaint chest pain Problems: Source Source: Chart review, Patient History of Present Illness History of Present Illness HPI HPI Patient is a 41 year old male who presents with having chest pain. HE has 3mm brain aneurysm chronically, seizure, 04/2017 LAST TIME cAME for headache, chest pain, seizure. He was off seizure meds for 3 weeks, now changed to dilantin by neuro. He always has headache chronically no matter if takes meds or not. MPI neg . dc home, order entered by dr. Larsen cotton factor later at night. Pt said he was ok till today, woke up with substernal chest pain, pressure like , radiating to left neck and back, no N/V, sob or diaphoresis. still smoking supposed to fu with ku for seizure, not yet. no fever, chills, cough, diarrhea. Past Medical History Cardiovascular: HTN Pulmonary: Bronchitis CENTRAL NERVOUS SYSTEM: Migraine, Seizure Past Surgical History Past Surgical History: No pertinent history Family History Family History: Heart Disease Social History Smoke: <1 pack per day ALCOHOL: none Drugs: None Current Problem List Problem List Problems Medical Problems: (1) Chest pain Status: Acute Current Medications Current Medications Current Medications Medications (Trade) Dose Ordered Sig/Daniella Start Time Stop Time Status Last Admin Dose Admin Aspirin (Children'S Aspirin) 324 mg 1X ONCE 05/21/17 11:15 05/21/17 11:16 DC Morphine Sulfate 4 mg PRN Q2HR PRN 05/21/17 14:00 05/22/17 13:59 Nitroglycerin (Nitrostat) 0.4 mg PRN Q5MIN PRN 05/21/17 11:15 05/22/17 11:14 05/21/17 11:39 0.4 MG Ondansetron HCl (Zofran) 4 mg PRN Q8HRS PRN 05/21/17 14:00 05/22/17 13:59 Allergies Allergies Allergies Coded Allergies Type Severity Reaction Last Updated Verified trazodone Allergy Severe PT REPORTS " MY HEART STOPPED" 11/24/15 Yes ROS Review of System CONSTITUTIONAL: No fever or chills EYES: No recent changes SKIN: No rash or itching CARDIOVASCULAR: No chest pain, syncope, palpitations, or edema RESPIRATORY: No SOB or cough GASTROINTESTINAL: No nausea, vomiting or abdominal pain NEUROLOGICAL: No headaches or weakness ENDOCRINE: No cold or heat intolerance GENITOURINARY: No urgency or frequency of urination MUSCULOSKELETAL: No back pain or joint pain LYMPHATICS: No enlarged lymph nodes PSYCHIATRIC: No anxiety or depression Physical Exam Physical Exam GEN.: No apparent distress. Alert and oriented. HEENT: Head is normocephalic, atraumatic NECK: Supple. chest wall tenderness LUNGS: Clear to auscultation. HEART: RRR, S1, S2 present. Peripheral pulses intact ABDOMEN: Soft, nontender. Positive bowel sounds. EXTREMITIES: Without any cyanosis. NEUROLOGIC: Normal speech, normal tone PSYCHIATRIC: Normal affect, normal mood. SKIN: No ulcerations Vitals Vitals Vital Signs Date Time Temp Pulse Resp B/P (MAP) Pulse Ox O2 Delivery O2 Flow Rate FiO2 05/21/17 13:29 20 98 Room Air 05/21/17 11:39 106 116/82 05/21/17 10:55 98.0 98.0 Labs Labs Laboratory Tests Test 05/21/17 11:15 White Blood Count 7.0 x10^3/uL (4.0-11.0) Red Blood Count 5.35 x10^6/uL (4.30-5.70) Hemoglobin 18.1 g/dL (13.0-17.5) Hematocrit 52.1 % (39.0-53.0) Mean Corpuscular Volume 98 fL (79-100) Mean Corpuscular Hemoglobin 34 pg (25-35) Mean Corpuscular Hemoglobin Concent 35 g/dL (31-37) Red Cell Distribution Width 13.4 % (11.5-14.5) Platelet Count 184 x10^3/uL (140-400) Neutrophils (%) (Auto) 65 % (31-73) Lymphocytes (%) (Auto) 24 % (24-48) Monocytes (%) (Auto) 8 % (0-9) Eosinophils (%) (Auto) 2 % (0-3) Basophils (%) (Auto) 1 % (0-3) Neutrophils # (Auto) 4.6 x10^3uL (1.8-7.7) Lymphocytes # (Auto) 1.6 x10^3/uL (1.0-4.8) Monocytes # (Auto) 0.6 x10^3/uL (0.0-1.1) Eosinophils # (Auto) 0.2 x10^3/uL (0.0-0.7) Basophils # (Auto) 0.1 x10^3/uL (0.0-0.2) Prothrombin Time 13.1 SEC (11.7-14.0) Prothromb Time International Ratio 1.1 (0.8-1.1) Sodium Level 139 mmol/L (136-145) Potassium Level 4.1 mmol/L (3.5-5.1) Chloride Level 101 mmol/L (98-107) Carbon Dioxide Level 30 mmol/L (21-32) Anion Gap 8 (6-14) Blood Urea Nitrogen 4 mg/dL (8-26) Creatinine 1.1 mg/dL (0.7-1.3) Estimated GFR (Cockcroft-Gault) 74.1 Glucose Level 86 mg/dL (70-99) Calcium Level 9.3 mg/dL (8.5-10.1) Magnesium Level 1.9 mg/dL (1.8-2.4) Total Bilirubin 0.6 mg/dL (0.2-1.0) Direct Bilirubin 0.1 mg/dL (0.0-0.2) Aspartate Amino Transf (AST/SGOT) 67 U/L (15-37) Alanine Aminotransferase (ALT/SGPT) 79 U/L (16-63) Alkaline Phosphatase 60 U/L (46-116) Creatine Kinase 94 U/L (39-308) Creatine Kinase MB (Mass) 0.5 ng/mL (0.0-3.6) Creatine Kinase MB Relative Index 0.5 % (0-4) Troponin I Quantitative < 0.017 ng/mL (0.000-0.055) UH-Okt-O-Type Natriuretic Peptide 54 pg/mL (0-124) Total Protein 8.0 g/dL (6.4-8.2) Albumin 4.0 g/dL (3.4-5.0) Lipase 143 U/L (73-393) Laboratory Tests Test 05/21/17 11:15 White Blood Count 7.0 x10^3/uL (4.0-11.0) Red Blood Count 5.35 x10^6/uL (4.30-5.70) Hemoglobin 18.1 g/dL (13.0-17.5) Hematocrit 52.1 % (39.0-53.0) Mean Corpuscular Volume 98 fL (79-100) Mean Corpuscular Hemoglobin 34 pg (25-35) Mean Corpuscular Hemoglobin Concent 35 g/dL (31-37) Red Cell Distribution Width 13.4 % (11.5-14.5) Platelet Count 184 x10^3/uL (140-400) Neutrophils (%) (Auto) 65 % (31-73) Lymphocytes (%) (Auto) 24 % (24-48) Monocytes (%) (Auto) 8 % (0-9) Eosinophils (%) (Auto) 2 % (0-3) Basophils (%) (Auto) 1 % (0-3) Neutrophils # (Auto) 4.6 x10^3uL (1.8-7.7) Lymphocytes # (Auto) 1.6 x10^3/uL (1.0-4.8) Monocytes # (Auto) 0.6 x10^3/uL (0.0-1.1) Eosinophils # (Auto) 0.2 x10^3/uL (0.0-0.7) Basophils # (Auto) 0.1 x10^3/uL (0.0-0.2) Prothrombin Time 13.1 SEC (11.7-14.0) Prothromb Time International Ratio 1.1 (0.8-1.1) Sodium Level 139 mmol/L (136-145) Potassium Level 4.1 mmol/L (3.5-5.1) Chloride Level 101 mmol/L (98-107) Carbon Dioxide Level 30 mmol/L (21-32) Anion Gap 8 (6-14) Blood Urea Nitrogen 4 mg/dL (8-26) Creatinine 1.1 mg/dL (0.7-1.3) Estimated GFR (Cockcroft-Gault) 74.1 Glucose Level 86 mg/dL (70-99) Calcium Level 9.3 mg/dL (8.5-10.1) Magnesium Level 1.9 mg/dL (1.8-2.4) Total Bilirubin 0.6 mg/dL (0.2-1.0) Direct Bilirubin 0.1 mg/dL (0.0-0.2) Aspartate Amino Transf (AST/SGOT) 67 U/L (15-37) Alanine Aminotransferase (ALT/SGPT) 79 U/L (16-63) Alkaline Phosphatase 60 U/L (46-116) Creatine Kinase 94 U/L (39-308) Creatine Kinase MB (Mass) 0.5 ng/mL (0.0-3.6) Creatine Kinase MB Relative Index 0.5 % (0-4) Troponin I Quantitative < 0.017 ng/mL (0.000-0.055) JZ-Vuf-G-Type Natriuretic Peptide 54 pg/mL (0-124) Total Protein 8.0 g/dL (6.4-8.2) Albumin 4.0 g/dL (3.4-5.0) Lipase 143 U/L (73-393) VTE Prophylaxis Ordered VTE Prophylaxis Devices: Yes VTE Pharmacological Prophylaxi: Yes Assessment/Plan Assessment/Plan chest pain, need to rule out unstable angina, recent MPI neg, could be 2/2 muscular pain chronic headache, with known small intracranial aneurysm 3-4mm 10/2016 CTA h/o seizure, supposed to be on dilantin HTN, acclerated tobaccoism copd plan: fu with dr. Diaz, cath tmr as per card npo after mn need to verify home meds cycle CE dvt ppx MIKHAIL BARNES MD May 21, 2017 14:17
[2017-05-21] MEDS ORDERED: DOCUSATE SODIUM 100 MG CAPSULE. PO PRN (14:45)
[2017-05-21] MEDS ORDERED: traMADol 50 MG TABLET PO PRN (14:45)
[2017-05-21] MEDS ORDERED: hydrALAZINE 20 MG/ML VIAL. IVP PRN (14:45)
[2017-05-21] MEDS ORDERED: ACETAMINOPHEN 325 MG TABLET. PO PRN (14:45)
[2017-05-21] MEDS ORDERED: MORPHINE SULFATE 2 MG/ML DISP.SYRIN. IV PRN (14:45)
[2017-05-21 16:26] VITALS: BP 144/81
[2017-05-21 16:27] VITALS: BP 144/87
[2017-05-21 16:30] LABS: BILIRUBIN,URINE NEGATIVE (NEG); GLUCOSE,URINE NEGATIVE (NEG); NITRITE,URINE NEGATIVE (NEG); PROTEIN,URINE NEGATIVE (NEG-TRACE)
[2017-05-21 16:39] LABS: BARBITURATES NEG (NEG); BENZODIAZEPINES NEG (NEG); CANNABINOIDS NEG (NEG); COCAINE NEG (NEG); METHADONE NEG (NEG); OPIATES POS (NEG); PHENCYCLIDINE NEG (NEG); RBC,URINE 0 /HPF (0-2); WBC,URINE OCC /HPF (0-4)
[2017-05-21 16:40] LABS: BACTERIA,URINE 0 /HPF (0-FEW); SQUAMOUS EPITHELIAL CELL,UR OCC /LPF
[2017-05-21] MEDS ORDERED: PNEUMOCOCCAL VAX SCREEN BY RX. MC ONE (16:45)
[2017-05-21] MEDS ORDERED: BUTALB/APAP/CAFEIN 50/325/40MG TABLET. PO PRN (17:15)
[2017-05-21] MEDS ORDERED: PNEUMOC CONJ VACC 23-VALENT 0.5 ML VIAL. VAX IM ONE (18:00)
[2017-05-21] MEDS: MORPHINE SULFATE 4 MG/ML DISP.SYRIN. IV PRN (18:28)
--- NOTE | 2017-05-21 19:17 | PDOC2 ---
CONSULT Date of Consult Date of Consult DATE: 05/21/17 TIME: 19:10 Reason for Consult Reason for Consult: Chest pain Referring Physician Referring Physician: Dr Mckinley Identification/Chief Complaint Chief Complaint Chest pain Problems: History of Present Illness Reason for Visit: The patient is a 41-year-old gentleman that has a known history of COPD, hypertension, some lung surgery and seizures. He had been recently at this institution because of an episode of chest pains. An MPI was done that showed a normal left ventricular systolic function and no significant evidence of reversible ischemia. The patient was then discharged and had been doing fine until today when a severe sharp chest pain woke him up and this was associated with a heaviness across the chest and shortness of breath. This brought him to the ER where he was seen and evaluated and he was decided to admit him. The EKG that was done in the ER showed no acute changes from the previous EKGs. The first set of enzymes was negative. At the time that I saw him he denies having any chest pains. Past Medical History Cardiovascular: HTN Pulmonary: Bronchitis, COPD CENTRAL NERVOUS SYSTEM: Migraine, Seizure Past Surgical History Past Surgical History: No pertinent history Family History Family History: Heart Disease Social History <1 pack per day ALCOHOL: none Drugs: None Current Problem List Problem List Problems Medical Problems: (1) Chest pain Status: Acute Current Medications Current Medications Current Medications Aspirin (Children'S Aspirin) 324 mg 1X ONCE PO ; Start 05/21/17 at 11:15; Stop 05/21/17 at 11:16; Status DC Nitroglycerin (Nitrostat) 0.4 mg PRN Q5MIN PRN SL CP RATING > 1/10 Last administered on 05/21/17 11:39; Start 05/21/17 at 11:15; Stop 05/22/17 at 11:14 Morphine Sulfate 4 mg PRN Q15MIN PRN IV/SQ PAIN GREATER THAN 3/10 Last administered on 05/21/17 13:29; Start 05/21/17 at 12:30; Stop 05/22/17 at 12:29 Ondansetron HCl (Zofran) 4 mg 1X ONCE IV Last administered on 05/21/17 12:45 ; Start 05/21/17 at 12:30; Stop 05/21/17 at 12:31; Status DC Ondansetron HCl (Zofran) 4 mg PRN Q8HRS PRN IV NAUSEA/VOMITING; Start 05/21/17 at 14:00; Stop 05/22/17 at 13:59 Morphine Sulfate 4 mg PRN Q2HR PRN IV PAIN Last administered on 05/21/17 18:28 ; Start 05/21/17 at 14:00; Stop 05/22/17 at 13:59 Acetaminophen (Tylenol) 650 mg PRN Q6HRS PRN PO FEVER; Start 05/21/17 at 14:45 Ondansetron HCl (Zofran) 4 mg PRN Q6HRS PRN IV NAUSEA/VOMITING; Start 05/21/17 at 14:45 Morphine Sulfate 2 mg PRN Q2HR PRN IV PAIN Last administered on 05/21/17 16:13 ; Start 05/21/17 at 14:45 Tramadol HCl (Ultram) 50 mg PRN Q6HRS PRN PO PAIN; Start 05/21/17 at 14:45 Hydralazine HCl (Apresoline) 10 mg PRN Q4HRS PRN IVP ELEVATED BP, SEE COMMENTS ; Start 05/21/17 at 14:45 Docusate Sodium (Colace) 100 mg PRN DAILY PRN PO CONSTIPATION; Start 05/21/17 at 14:45 Pneumococcal Polyvalent Vaccine (Do NOT chart on this placeholder) 1 each 1X ONCE MC ; Start 05/21/17 at 16:45; Stop 05/21/17 at 16:46; Status UNV Pneumococcal Polyvalent Vaccine (Pneumovax 23) 0.5 ml ONCE ONCE VAX IM Last administered on 05/21/17 17:14; Start 05/21/17 at 18:00; Stop 05/21/17 at 18:01 ; Status DC Carbamazepine (TEGretol) 100 mg BID PO ; Start 05/21/17 at 21:00 Acetaminophen/ Hydrocodone Bitart (Lortab 5/325) 1 tab PRN Q6HRS PRN PO PAIN; Start 05/21/17 at 17:00 Atenolol (Tenormin) 100 mg BID PO ; Start 05/21/17 at 21:00 Acetaminophen/ Butalbital/ Caffeine (Fioricet) 1 tab PRN Q4HRS PRN PO MIGRAINE HEADACHE; Start 05/21/17 at 17:15 Active Scripts Active [place] 5-325 Tablet (Acetaminophen/Hydrocodone Bitart) 1 Each Tablet 1 Tab PO PRN Q6HRS PRN Fioricet 50-300-40 Mg Capsule (Butalb/Acetaminophen/Caffeine) 1 Each Capsule 1 Each PO PRN Q4HRS PRN Atenolol 100 Mg Tablet 1 Tab PO BID Reported Tegretol (Carbamazepine) 200 Mg Tablet 0.5 Tab PO BID Allergies Allergies: Coded Allergies: trazodone (Verified Allergy, Severe, PT REPORTS " MY HEART STOPPED", ) Physical Exam General: Alert, Oriented X3, Cooperative HEENT: Atraumatic, PERRLA Lungs: Clear to auscultation Heart: Regular rate, Normal S1, Normal S2 Abdomen: Normal bowel sounds, Soft Extremities: No edema Psych/Mental Status: Mental status NL Vitals VITALS Vital Signs Date Time Temp Pulse Resp B/P (MAP) Pulse Ox O2 Delivery O2 Flow Rate FiO2 05/21/17 18:28 Room Air 05/21/17 16:27 97.8 77 17 144/87 (106) 97 97.8 Labs Labs Laboratory Tests Test 05/21/17 11:15 05/21/17 16:20 White Blood Count 7.0 x10^3/uL (4.0-11.0) Red Blood Count 5.35 x10^6/uL (4.30-5.70) Hemoglobin 18.1 g/dL (13.0-17.5) Hematocrit 52.1 % (39.0-53.0) Mean Corpuscular Volume 98 fL (79-100) Mean Corpuscular Hemoglobin 34 pg (25-35) Mean Corpuscular Hemoglobin Concent 35 g/dL (31-37) Red Cell Distribution Width 13.4 % (11.5-14.5) Platelet Count 184 x10^3/uL (140-400) Neutrophils (%) (Auto) 65 % (31-73) Lymphocytes (%) (Auto) 24 % (24-48) Monocytes (%) (Auto) 8 % (0-9) Eosinophils (%) (Auto) 2 % (0-3) Basophils (%) (Auto) 1 % (0-3) Neutrophils # (Auto) 4.6 x10^3uL (1.8-7.7) Lymphocytes # (Auto) 1.6 x10^3/uL (1.0-4.8) Monocytes # (Auto) 0.6 x10^3/uL (0.0-1.1) Eosinophils # (Auto) 0.2 x10^3/uL (0.0-0.7) Basophils # (Auto) 0.1 x10^3/uL (0.0-0.2) Prothrombin Time 13.1 SEC (11.7-14.0) Prothromb Time International Ratio 1.1 (0.8-1.1) Sodium Level 139 mmol/L (136-145) Potassium Level 4.1 mmol/L (3.5-5.1) Chloride Level 101 mmol/L (98-107) Carbon Dioxide Level 30 mmol/L (21-32) Anion Gap 8 (6-14) Blood Urea Nitrogen 4 mg/dL (8-26) Creatinine 1.1 mg/dL (0.7-1.3) Estimated GFR (Cockcroft-Gault) 74.1 Glucose Level 86 mg/dL (70-99) Calcium Level 9.3 mg/dL (8.5-10.1) Magnesium Level 1.9 mg/dL (1.8-2.4) Total Bilirubin 0.6 mg/dL (0.2-1.0) Direct Bilirubin 0.1 mg/dL (0.0-0.2) Aspartate Amino Transf (AST/SGOT) 67 U/L (15-37) Alanine Aminotransferase (ALT/SGPT) 79 U/L (16-63) Alkaline Phosphatase 60 U/L (46-116) Creatine Kinase 94 U/L (39-308) Creatine Kinase MB (Mass) 0.5 ng/mL (0.0-3.6) Creatine Kinase MB Relative Index 0.5 % (0-4) Troponin I Quantitative < 0.017 ng/mL (0.000-0.055) IL-Kty-I-Type Natriuretic Peptide 54 pg/mL (0-124) Total Protein 8.0 g/dL (6.4-8.2) Albumin 4.0 g/dL (3.4-5.0) Lipase 143 U/L (73-393) Urine Collection Type Void Urine Color Yellow Urine Clarity Clear Urine pH 7.0 Urine Specific [place] <=1.005 Urine Protein Negative mg/dL (NEG-TRACE) Urine Glucose (UA) Negative mg/dL (NEG) Urine Ketones (Stick) Negative mg/dL (NEG) Urine Blood Negative (NEG) Urine Nitrite Negative (NEG) Urine Bilirubin Negative (NEG) Urine Urobilinogen Dipstick 2.0 mg/dL (0.2 mg/dL) Urine Leukocyte Esterase Negative (NEG) Urine RBC 0 /HPF (0-2) Urine WBC Occ /HPF (0-4) Urine Squamous Epithelial Cells Occ /LPF Urine Bacteria 0 /HPF (0-FEW) Urine Opiates Screen Pos (NEG) Urine Methadone Screen Neg (NEG) Urine Barbiturates Neg (NEG) Urine Phencyclidine Screen Neg (NEG) Urine Amphetamine/Methamphetamine Neg (NEG) Urine Benzodiazepines Screen Neg (NEG) Urine Cocaine Screen Neg (NEG) Urine Cannabinoids Screen Neg (NEG) Urine Ethyl Alcohol Neg (NEG) Laboratory Tests Test 05/21/17 11:15 05/21/17 16:20 White Blood Count 7.0 x10^3/uL (4.0-11.0) Red Blood Count 5.35 x10^6/uL (4.30-5.70) Hemoglobin 18.1 g/dL (13.0-17.5) Hematocrit 52.1 % (39.0-53.0) Mean Corpuscular Volume 98 fL (79-100) Mean Corpuscular Hemoglobin 34 pg (25-35) Mean Corpuscular Hemoglobin Concent 35 g/dL (31-37) Red Cell Distribution Width 13.4 % (11.5-14.5) Platelet Count 184 x10^3/uL (140-400) Neutrophils (%) (Auto) 65 % (31-73) Lymphocytes (%) (Auto) 24 % (24-48) Monocytes (%) (Auto) 8 % (0-9) Eosinophils (%) (Auto) 2 % (0-3) Basophils (%) (Auto) 1 % (0-3) Neutrophils # (Auto) 4.6 x10^3uL (1.8-7.7) Lymphocytes # (Auto) 1.6 x10^3/uL (1.0-4.8) Monocytes # (Auto) 0.6 x10^3/uL (0.0-1.1) Eosinophils # (Auto) 0.2 x10^3/uL (0.0-0.7) Basophils # (Auto) 0.1 x10^3/uL (0.0-0.2) Prothrombin Time 13.1 SEC (11.7-14.0) Prothromb Time International Ratio 1.1 (0.8-1.1) Sodium Level 139 mmol/L (136-145) Potassium Level 4.1 mmol/L (3.5-5.1) Chloride Level 101 mmol/L (98-107) Carbon Dioxide Level 30 mmol/L (21-32) Anion Gap 8 (6-14) Blood Urea Nitrogen 4 mg/dL (8-26) Creatinine 1.1 mg/dL (0.7-1.3) Estimated GFR (Cockcroft-Gault) 74.1 Glucose Level 86 mg/dL (70-99) Calcium Level 9.3 mg/dL (8.5-10.1) Magnesium Level 1.9 mg/dL (1.8-2.4) Total Bilirubin 0.6 mg/dL (0.2-1.0) Direct Bilirubin 0.1 mg/dL (0.0-0.2) Aspartate Amino Transf (AST/SGOT) 67 U/L (15-37) Alanine Aminotransferase (ALT/SGPT) 79 U/L (16-63) Alkaline Phosphatase 60 U/L (46-116) Creatine Kinase 94 U/L (39-308) Creatine Kinase MB (Mass) 0.5 ng/mL (0.0-3.6) Creatine Kinase MB Relative Index 0.5 % (0-4) Troponin I Quantitative < 0.017 ng/mL (0.000-0.055) HS-Gkm-M-Type Natriuretic Peptide 54 pg/mL (0-124) Total Protein 8.0 g/dL (6.4-8.2) Albumin 4.0 g/dL (3.4-5.0) Lipase 143 U/L (73-393) Urine Collection Type Void Urine Color Yellow Urine Clarity Clear Urine pH 7.0 Urine Specific [place] <=1.005 Urine Protein Negative mg/dL (NEG-TRACE) Urine Glucose (UA) Negative mg/dL (NEG) Urine Ketones (Stick) Negative mg/dL (NEG) Urine Blood Negative (NEG) Urine Nitrite Negative (NEG) Urine Bilirubin Negative (NEG) Urine Urobilinogen Dipstick 2.0 mg/dL (0.2 mg/dL) Urine Leukocyte Esterase Negative (NEG) Urine RBC 0 /HPF (0-2) Urine WBC Occ /HPF (0-4) Urine Squamous Epithelial Cells Occ /LPF Urine Bacteria 0 /HPF (0-FEW) Urine Opiates Screen Pos (NEG) Urine Methadone Screen Neg (NEG) Urine Barbiturates Neg (NEG) Urine Phencyclidine Screen Neg (NEG) Urine Amphetamine/Methamphetamine Neg (NEG) Urine Benzodiazepines Screen Neg (NEG) Urine Cocaine Screen Neg (NEG) Urine Cannabinoids Screen Neg (NEG) Urine Ethyl Alcohol Neg (NEG) Assessment/Plan Assessment/Plan This patient returns with chest pains. Less than 2 weeks ago he had an MPI that was essentially normal and did not show any evidence of reversible ischemia. The patient woke up with the chest pains. He does have risk factors for coronary artery disease. We discussed the situation and it was decided to do a heart catheterization tomorrow. I have discussed the procedure with the patient and have answered all of his questions. We will set up to do the heart catheterization tomorrow in the afternoon. Thank you very much for asking me to participate in the care of this patient MILKA LUCIA MD May 21, 2017 19:16
[2017-05-21 19:44] VITALS: BP 143/94
[2017-05-21] MEDS: ATENOLOL 50 MG TABLET. PO SCH (20:47)
[2017-05-21] MEDS: carBAMazepine 200 MG TABLET PO SCH (20:48)
[2017-05-21] MEDS: HYDROcodone/APAP 5/325MG 1 TAB TABLET PO PRN (20:50)
[2017-05-21 23:29] VITALS: BP 131/84
[2017-05-22] VITALS (12 sets, daily range): BP systolic 95–119; BP diastolic 62–83
[2017-05-22] MEDS: MORPHINE SULFATE 4 MG/ML DISP.SYRIN. IV PRN ×3 (01:07→08:19)
[2017-05-22 02:20] LABS: BASO # 0.2 x10^3/uL (0.0-0.2); BASO % 1 % (0-3); EOS % 2 % (0-3); HEMATOCRIT 49.6 % (39.0-53.0); HEMOGLOBIN 16.6 g/dL (13.0-17.5); LYMPH # 3.3 x10^3/uL (1.0-4.8); LYMPH % 25 % (24-48); MEAN CORPUSCULAR HEMOGLOBIN 33 pg (25-35); MEAN CORPUSCULAR HGB CONC 34 g/dL (31-37); MEAN CORPUSCULAR VOLUME 99 fL (79-100); MONO % 7 % (0-9); NEUT % 65 % (31-73); PLATELET COUNT 174 x10^3/uL (140-400); RED BLOOD COUNT 5.03 x10^6/uL (4.30-5.70); RED CELL DISTRIBUTION WIDTH 13.1 % (11.5-14.5); WHITE BLOOD COUNT 13.3 x10^3/uL (4.0-11.0)
[2017-05-22 02:53] LABS: CALCIUM 9.1 mg/dL (8.5-10.1); CREATININE 1.1 mg/dL (0.7-1.3); GFR 74.1; POTASSIUM 4.3 mmol/L (3.5-5.1)
[2017-05-22] MEDS ORDERED: IV 1/2 NORMAL SALINE 1,000 ML IV SCH (06:00)
[2017-05-22] MEDS: carBAMazepine 200 MG TABLET PO SCH (08:18)
[2017-05-22] MEDS: ATENOLOL 50 MG TABLET. PO SCH (08:21)
[2017-05-22] MEDS ORDERED: LIDOCAINE 2% 20 ML VIAL. ONE (09:02)
[2017-05-22] MEDS ORDERED: IOHEXOL 350 MG/ML 100 ML VIAL. ONE (09:02)
--- NOTE | 2017-05-22 09:12 | PDOC ---
PROGRESS NOTES Subjective Subjective Mr Koehler was sitting up in bed this AM. He still complains of mild chest discomfort, but not to the degree of pain that he had been in. No shortness of breath. Objective Objective Vital Signs Date Time Temp Pulse Resp B/P (MAP) Pulse Ox O2 Delivery O2 Flow Rate FiO2 05/22/17 08:21 46 05/22/17 08:19 Room Air 05/22/17 07:52 98.2 16 112/75 (87) 95 98.2 Intake and Output 05/22/17 07:00 Intake Total 480 ml Balance 480 ml Intake Oral 480 ml # Voids 4 Physical Exam Heart: Regular rate (and rhythm), Normal S1, Normal S2 Extremities: No edema, Normal pulses (2/4 radial b/l) General: Alert, No acute distress Lungs: Clear to auscultation (b/l), Normal air movement Assessment Assessment Mr Koehler is a 41 yr old male who presented with chest pain 1) heart cath scheduled for later today Patient did have spike in WBC/PMN count, possible need to recheck labs to rule out infection Problems Medical Problems: (1) Chest pain Status: Acute Comment Review of Relevant I have reviewed the following items alea (where applicable) has been applied. Labs Laboratory Tests Test 05/21/17 11:15 05/21/17 16:20 05/22/17 01:50 White Blood Count 7.0 x10^3/uL (4.0-11.0) 13.3 x10^3/uL (4.0-11.0) Red Blood Count 5.35 x10^6/uL (4.30-5.70) 5.03 x10^6/uL (4.30-5.70) Hemoglobin 18.1 g/dL (13.0-17.5) 16.6 g/dL (13.0-17.5) Hematocrit 52.1 % (39.0-53.0) 49.6 % (39.0-53.0) Mean Corpuscular Volume 98 fL (79-100) 99 fL (79-100) Mean Corpuscular Hemoglobin 34 pg (25-35) 33 pg (25-35) Mean Corpuscular Hemoglobin Concent 35 g/dL (31-37) 34 g/dL (31-37) Red Cell Distribution Width 13.4 % (11.5-14.5) 13.1 % (11.5-14.5) Platelet Count 184 x10^3/uL (140-400) 174 x10^3/uL (140-400) Neutrophils (%) (Auto) 65 % (31-73) 65 % (31-73) Lymphocytes (%) (Auto) 24 % (24-48) 25 % (24-48) Monocytes (%) (Auto) 8 % (0-9) 7 % (0-9) Eosinophils (%) (Auto) 2 % (0-3) 2 % (0-3) Basophils (%) (Auto) 1 % (0-3) 1 % (0-3) Neutrophils # (Auto) 4.6 x10^3uL (1.8-7.7) 8.6 x10^3uL (1.8-7.7) Lymphocytes # (Auto) 1.6 x10^3/uL (1.0-4.8) 3.3 x10^3/uL (1.0-4.8) Monocytes # (Auto) 0.6 x10^3/uL (0.0-1.1) 1.0 x10^3/uL (0.0-1.1) Eosinophils # (Auto) 0.2 x10^3/uL (0.0-0.7) 0.3 x10^3/uL (0.0-0.7) Basophils # (Auto) 0.1 x10^3/uL (0.0-0.2) 0.2 x10^3/uL (0.0-0.2) Prothrombin Time 13.1 SEC (11.7-14.0) Prothromb Time International Ratio 1.1 (0.8-1.1) Sodium Level 139 mmol/L (136-145) 140 mmol/L (136-145) Potassium Level 4.1 mmol/L (3.5-5.1) 4.3 mmol/L (3.5-5.1) Chloride Level 101 mmol/L (98-107) 101 mmol/L (98-107) Carbon Dioxide Level 30 mmol/L (21-32) 35 mmol/L (21-32) Anion Gap 8 (6-14) 4 (6-14) Blood Urea Nitrogen 4 mg/dL (8-26) 10 mg/dL (8-26) Creatinine 1.1 mg/dL (0.7-1.3) 1.1 mg/dL (0.7-1.3) Estimated GFR (Cockcroft-Gault) 74.1 74.1 Glucose Level 86 mg/dL (70-99) 79 mg/dL (70-99) Calcium Level 9.3 mg/dL (8.5-10.1) 9.1 mg/dL (8.5-10.1) Magnesium Level 1.9 mg/dL (1.8-2.4) Total Bilirubin 0.6 mg/dL (0.2-1.0) Direct Bilirubin 0.1 mg/dL (0.0-0.2) Aspartate Amino Transf (AST/SGOT) 67 U/L (15-37) Alanine Aminotransferase (ALT/SGPT) 79 U/L (16-63) Alkaline Phosphatase 60 U/L (46-116) Creatine Kinase 94 U/L (39-308) Creatine Kinase MB (Mass) 0.5 ng/mL (0.0-3.6) Creatine Kinase MB Relative Index 0.5 % (0-4) Troponin I Quantitative < 0.017 ng/mL (0.000-0.055) < 0.017 ng/mL (0.000-0.055) PQ-Jyn-N-Type Natriuretic Peptide 54 pg/mL (0-124) Total Protein 8.0 g/dL (6.4-8.2) Albumin 4.0 g/dL (3.4-5.0) Lipase 143 U/L (73-393) Urine Collection Type Void Urine Color Yellow Urine Clarity Clear Urine pH 7.0 Urine Specific [place] <=1.005 Urine Protein Negative mg/dL (NEG-TRACE) Urine Glucose (UA) Negative mg/dL (NEG) Urine Ketones (Stick) Negative mg/dL (NEG) Urine Blood Negative (NEG) Urine Nitrite Negative (NEG) Urine Bilirubin Negative (NEG) Urine Urobilinogen Dipstick 2.0 mg/dL (0.2 mg/dL) Urine Leukocyte Esterase Negative (NEG) Urine RBC 0 /HPF (0-2) Urine WBC Occ /HPF (0-4) Urine Squamous Epithelial Cells Occ /LPF Urine Bacteria 0 /HPF (0-FEW) Urine Opiates Screen Pos (NEG) Urine Methadone Screen Neg (NEG) Urine Barbiturates Neg (NEG) Urine Phencyclidine Screen Neg (NEG) Urine Amphetamine/Methamphetamine Neg (NEG) Urine Benzodiazepines Screen Neg (NEG) Urine Cocaine Screen Neg (NEG) Urine Cannabinoids Screen Neg (NEG) Urine Ethyl Alcohol Neg (NEG) Laboratory Tests Test 05/21/17 11:15 05/21/17 16:20 05/22/17 01:50 White Blood Count 7.0 x10^3/uL (4.0-11.0) 13.3 x10^3/uL (4.0-11.0) Red Blood Count 5.35 x10^6/uL (4.30-5.70) 5.03 x10^6/uL (4.30-5.70) Hemoglobin 18.1 g/dL (13.0-17.5) 16.6 g/dL (13.0-17.5) Hematocrit 52.1 % (39.0-53.0) 49.6 % (39.0-53.0) Mean Corpuscular Volume 98 fL (79-100) 99 fL (79-100) Mean Corpuscular Hemoglobin 34 pg (25-35) 33 pg (25-35) Mean Corpuscular Hemoglobin Concent 35 g/dL (31-37) 34 g/dL (31-37) Red Cell Distribution Width 13.4 % (11.5-14.5) 13.1 % (11.5-14.5) Platelet Count 184 x10^3/uL (140-400) 174 x10^3/uL (140-400) Neutrophils (%) (Auto) 65 % (31-73) 65 % (31-73) Lymphocytes (%) (Auto) 24 % (24-48) 25 % (24-48) Monocytes (%) (Auto) 8 % (0-9) 7 % (0-9) Eosinophils (%) (Auto) 2 % (0-3) 2 % (0-3) Basophils (%) (Auto) 1 % (0-3) 1 % (0-3) Neutrophils # (Auto) 4.6 x10^3uL (1.8-7.7) 8.6 x10^3uL (1.8-7.7) Lymphocytes # (Auto) 1.6 x10^3/uL (1.0-4.8) 3.3 x10^3/uL (1.0-4.8) Monocytes # (Auto) 0.6 x10^3/uL (0.0-1.1) 1.0 x10^3/uL (0.0-1.1) Eosinophils # (Auto) 0.2 x10^3/uL (0.0-0.7) 0.3 x10^3/uL (0.0-0.7) Basophils # (Auto) 0.1 x10^3/uL (0.0-0.2) 0.2 x10^3/uL (0.0-0.2) Prothrombin Time 13.1 SEC (11.7-14.0) Prothromb Time International Ratio 1.1 (0.8-1.1) Sodium Level 139 mmol/L (136-145) 140 mmol/L (136-145) Potassium Level 4.1 mmol/L (3.5-5.1) 4.3 mmol/L (3.5-5.1) Chloride Level 101 mmol/L (98-107) 101 mmol/L (98-107) Carbon Dioxide Level 30 mmol/L (21-32) 35 mmol/L (21-32) Anion Gap 8 (6-14) 4 (6-14) Blood Urea Nitrogen 4 mg/dL (8-26) 10 mg/dL (8-26) Creatinine 1.1 mg/dL (0.7-1.3) 1.1 mg/dL (0.7-1.3) Estimated GFR (Cockcroft-Gault) 74.1 74.1 Glucose Level 86 mg/dL (70-99) 79 mg/dL (70-99) Calcium Level 9.3 mg/dL (8.5-10.1) 9.1 mg/dL (8.5-10.1) Magnesium Level 1.9 mg/dL (1.8-2.4) Total Bilirubin 0.6 mg/dL (0.2-1.0) Direct Bilirubin 0.1 mg/dL (0.0-0.2) Aspartate Amino Transf (AST/SGOT) 67 U/L (15-37) Alanine Aminotransferase (ALT/SGPT) 79 U/L (16-63) Alkaline Phosphatase 60 U/L (46-116) Creatine Kinase 94 U/L (39-308) Creatine Kinase MB (Mass) 0.5 ng/mL (0.0-3.6) Creatine Kinase MB Relative Index 0.5 % (0-4) Troponin I Quantitative < 0.017 ng/mL (0.000-0.055) < 0.017 ng/mL (0.000-0.055) AC-Ksg-W-Type Natriuretic Peptide 54 pg/mL (0-124) Total Protein 8.0 g/dL (6.4-8.2) Albumin 4.0 g/dL (3.4-5.0) Lipase 143 U/L (73-393) Urine Collection Type Void Urine Color Yellow Urine Clarity Clear Urine pH 7.0 Urine Specific [place] <=1.005 Urine Protein Negative mg/dL (NEG-TRACE) Urine Glucose (UA) Negative mg/dL (NEG) Urine Ketones (Stick) Negative mg/dL (NEG) Urine Blood Negative (NEG) Urine Nitrite Negative (NEG) Urine Bilirubin Negative (NEG) Urine Urobilinogen Dipstick 2.0 mg/dL (0.2 mg/dL) Urine Leukocyte Esterase Negative (NEG) Urine RBC 0 /HPF (0-2) Urine WBC Occ /HPF (0-4) Urine Squamous Epithelial Cells Occ /LPF Urine Bacteria 0 /HPF (0-FEW) Urine Opiates Screen Pos (NEG) Urine Methadone Screen Neg (NEG) Urine Barbiturates Neg (NEG) Urine Phencyclidine Screen Neg (NEG) Urine Amphetamine/Methamphetamine Neg (NEG) Urine Benzodiazepines Screen Neg (NEG) Urine Cocaine Screen Neg (NEG) Urine Cannabinoids Screen Neg (NEG) Urine Ethyl Alcohol Neg (NEG) Medications Current Medications Aspirin (Children'S Aspirin) 324 mg 1X ONCE PO ; Start 05/21/17 at 11:15; Stop 05/21/17 at 11:16; Status DC Nitroglycerin (Nitrostat) 0.4 mg PRN Q5MIN PRN SL CP RATING > 1/10 Last administered on 05/21/17t 11:39; Start 05/21/17 at 11:15; Stop 05/22/17 at 11:14 Morphine Sulfate 4 mg PRN Q15MIN PRN IV/SQ PAIN GREATER THAN 3/10 Last administered on 05/21/17 13:29; Start 05/21/17 at 12:30; Stop 05/22/17 at 12:29 Ondansetron HCl (Zofran) 4 mg 1X ONCE IV Last administered on 05/21/17 12:45 ; Start 05/21/17 at 12:30; Stop 05/21/17 at 12:31; Status DC Ondansetron HCl (Zofran) 4 mg PRN Q8HRS PRN IV NAUSEA/VOMITING; Start 05/21/17 at 14:00; Stop 05/22/17 at 13:59 Morphine Sulfate 4 mg PRN Q2HR PRN IV PAIN Last administered on 05/22/17 08:19 ; Start 05/21/17 at 14:00; Stop 05/22/17 at 13:59 Acetaminophen (Tylenol) 650 mg PRN Q6HRS PRN PO FEVER; Start 05/21/17 at 14:45 Ondansetron HCl (Zofran) 4 mg PRN Q6HRS PRN IV NAUSEA/VOMITING; Start 05/21/17 at 14:45 Morphine Sulfate 2 mg PRN Q2HR PRN IV PAIN Last administered on 05/21/17 16:13 ; Start 05/21/17 at 14:45 Tramadol HCl (Ultram) 50 mg PRN Q6HRS PRN PO PAIN; Start 05/21/17 at 14:45 Hydralazine HCl (Apresoline) 10 mg PRN Q4HRS PRN IVP ELEVATED BP, SEE COMMENTS ; Start 05/21/17 at 14:45 Docusate Sodium (Colace) 100 mg PRN DAILY PRN PO CONSTIPATION; Start 05/21/17 at 14:45 Pneumococcal Polyvalent Vaccine (Do NOT chart on this placeholder) 1 each 1X ONCE MC ; Start 05/21/17 at 16:45; Stop 05/21/17 at 16:46; Status UNV Pneumococcal Polyvalent Vaccine (Pneumovax 23) 0.5 ml ONCE ONCE VAX IM Last administered on 05/21/17 17:14; Start 05/21/17 at 18:00; Stop 05/21/17 at 18:01 ; Status DC Carbamazepine (TEGretol) 100 mg BID PO Last administered on 05/22/17 08:18; Start 05/21/17 at 21:00 Acetaminophen/ Hydrocodone Bitart (Lortab 5/325) 1 tab PRN Q6HRS PRN PO PAIN Last administered on 05/21/17 20:50; Start 05/21/17 at 17:00 Atenolol (Tenormin) 100 mg BID PO Last administered on 05/21/17 20:47; Start 05/21/17 at 21:00 Acetaminophen/ Butalbital/ Caffeine (Fioricet) 1 tab PRN Q4HRS PRN PO MIGRAINE HEADACHE; Start 05/21/17 at 17:15 Sodium Chloride 1,000 ml @ 60 mls/hr [id number] IV Last administered on 06:02; Start 05/22/17 at 06:00 Heparin Sodium/ Sodium Chloride 1,000 ml @ As Directed STK-MED ONCE .ROUTE ; Start 05/22/17 at 09:02; Stop 05/22/17 at 09:03; Status DC Lidocaine HCl 20 ml STK-MED ONCE .ROUTE ; Start 05/22/17 at 09:02; Stop at 09:03; Status DC Iohexol (Omnipaque 350 Mg/ml) 100 ml STK-MED ONCE .ROUTE ; Start 05/22/17 at 09: 02; Stop 05/22/17 at 09:03; Status DC Active Scripts Active [place] 5-325 Tablet (Acetaminophen/Hydrocodone Bitart) 1 Each Tablet 1 Tab PO PRN Q6HRS PRN Fioricet 50-300-40 Mg Capsule (Butalb/Acetaminophen/Caffeine) 1 Each Capsule 1 Each PO PRN Q4HRS PRN Atenolol 100 Mg Tablet 1 Tab PO BID Reported Tegretol (Carbamazepine) 200 Mg Tablet 0.5 Tab PO BID Vitals/I & O Vital Sign - Last 24 Hours 05/21/17 05/21/17 05/21/17 05/21/17 10:55 11:30 11:31 11:39 Temp 98.0 98.0 Pulse 98 78 77 106 Resp 17 22 B/P (MAP) 144/109 (121) 155/100 (118) 155/100 116/82 Pulse Ox 97 97 O2 Delivery Room Air Room Air 05/21/17 05/21/17 05/21/17 05/21/17 12:00 12:30 12:48 13:00 Pulse 88 91 80 Resp 21 22 18 22 B/P (MAP) 124/78 (93) 131/89 (103) 136/95 (109) Pulse Ox 96 98 97 97 O2 Delivery Room Air 05/21/17 05/21/17 05/21/17 05/21/17 13:29 13:30 14:00 14:30 Pulse 72 77 67 Resp 20 17 18 21 B/P (MAP) 150/89 (109) 139/99 (112) 140/100 (113) Pulse Ox 98 98 97 97 O2 Delivery Room Air 05/21/17 05/21/17 05/21/17 05/21/17 15:00 15:30 16:13 16:26 Temp 97.8 97.8 Pulse 62 79 77 Resp 18 21 17 B/P (MAP) 136/94 (108) 150/98 (115) 144/81 (102) Pulse Ox 97 95 97 O2 Delivery Room Air Room Air Room Air 05/21/17 05/21/17 05/21/17 05/21/17 16:27 16:38 16:44 18:28 Temp 97.8 97.8 Pulse 77 Resp 17 B/P (MAP) 144/87 (106) Pulse Ox 97 O2 Delivery Room Air Room Air Room Air Room Air 05/21/17 05/21/17 05/21/17 05/21/17 19:44 20:00 20:47 23:29 Temp 98.2 98.2 98.2 98.2 Pulse 71 71 54 Resp 20 20 B/P (MAP) 143/94 (110) 143/94 131/84 (100) Pulse Ox 97 97 O2 Delivery Room Air Room Air Room Air 05/22/17 05/22/17 05/22/17 05/22/17 03:35 07:52 08:19 08:21 Temp 98.3 98.2 98.3 98.2 Pulse 50 51 46 Resp 16 16 B/P (MAP) 119/72 (88) 112/75 (87) Pulse Ox 95 95 O2 Delivery Room Air Room Air Room Air Intake and Output 05/21/17 05/21/17 05/22/17 15:00 23:00 07:00 Intake Total 480 ml Balance 480 ml MILKA LUCIA MD May 22, 2017 09:12
--- NOTE | 2017-05-22 09:38 | PDOC ---
PROGRESS NOTES Chief Complaint Chief Complaint Chest pain ASSESSMENT AND PLAN: 1. Chest pain: recurrent admit for same, MPI neg 1 month ago. proceed with caht today (Dr Raya) 2. ?GERD: suspect non-cardiac CP, prob GI (vs musculoskeletal) 3. HTN: accelerated at admit 4. COPD: 5. Tobaccoism: ongoing 6. Brain aneurism: 3mm, known, stable 7. Seizures: no acute issues. on dilantin 8. prophylaxis History of Present Illness History of Present Illness improved, still some discomfort in chest, but minimal Vitals Vitals Vital Signs Date Time Temp Pulse Resp B/P (MAP) Pulse Ox O2 Delivery O2 Flow Rate FiO2 05/22/17 08:49 Room Air 05/22/17 08:21 46 05/22/17 07:52 98.2 16 112/75 (87) 95 98.2 Physical Exam General: Alert, Cooperative, No acute distress Heart: Regular rate (and rhythm) Abdomen: Normal bowel sounds, Soft, No tenderness Extremities: No edema Skin: No rashes Labs LABS Laboratory Tests Test 05/21/17 11:15 05/21/17 16:20 05/22/17 01:50 White Blood Count 7.0 x10^3/uL (4.0-11.0) 13.3 x10^3/uL (4.0-11.0) Red Blood Count 5.35 x10^6/uL (4.30-5.70) 5.03 x10^6/uL (4.30-5.70) Hemoglobin 18.1 g/dL (13.0-17.5) 16.6 g/dL (13.0-17.5) Hematocrit 52.1 % (39.0-53.0) 49.6 % (39.0-53.0) Mean Corpuscular Volume 98 fL (79-100) 99 fL (79-100) Mean Corpuscular Hemoglobin 34 pg (25-35) 33 pg (25-35) Mean Corpuscular Hemoglobin Concent 35 g/dL (31-37) 34 g/dL (31-37) Red Cell Distribution Width 13.4 % (11.5-14.5) 13.1 % (11.5-14.5) Platelet Count 184 x10^3/uL (140-400) 174 x10^3/uL (140-400) Neutrophils (%) (Auto) 65 % (31-73) 65 % (31-73) Lymphocytes (%) (Auto) 24 % (24-48) 25 % (24-48) Monocytes (%) (Auto) 8 % (0-9) 7 % (0-9) Eosinophils (%) (Auto) 2 % (0-3) 2 % (0-3) Basophils (%) (Auto) 1 % (0-3) 1 % (0-3) Neutrophils # (Auto) 4.6 x10^3uL (1.8-7.7) 8.6 x10^3uL (1.8-7.7) Lymphocytes # (Auto) 1.6 x10^3/uL (1.0-4.8) 3.3 x10^3/uL (1.0-4.8) Monocytes # (Auto) 0.6 x10^3/uL (0.0-1.1) 1.0 x10^3/uL (0.0-1.1) Eosinophils # (Auto) 0.2 x10^3/uL (0.0-0.7) 0.3 x10^3/uL (0.0-0.7) Basophils # (Auto) 0.1 x10^3/uL (0.0-0.2) 0.2 x10^3/uL (0.0-0.2) Prothrombin Time 13.1 SEC (11.7-14.0) Prothromb Time International Ratio 1.1 (0.8-1.1) Sodium Level 139 mmol/L (136-145) 140 mmol/L (136-145) Potassium Level 4.1 mmol/L (3.5-5.1) 4.3 mmol/L (3.5-5.1) Chloride Level 101 mmol/L (98-107) 101 mmol/L (98-107) Carbon Dioxide Level 30 mmol/L (21-32) 35 mmol/L (21-32) Anion Gap 8 (6-14) 4 (6-14) Blood Urea Nitrogen 4 mg/dL (8-26) 10 mg/dL (8-26) Creatinine 1.1 mg/dL (0.7-1.3) 1.1 mg/dL (0.7-1.3) Estimated GFR (Cockcroft-Gault) 74.1 74.1 Glucose Level 86 mg/dL (70-99) 79 mg/dL (70-99) Calcium Level 9.3 mg/dL (8.5-10.1) 9.1 mg/dL (8.5-10.1) Magnesium Level 1.9 mg/dL (1.8-2.4) Total Bilirubin 0.6 mg/dL (0.2-1.0) Direct Bilirubin 0.1 mg/dL (0.0-0.2) Aspartate Amino Transf (AST/SGOT) 67 U/L (15-37) Alanine Aminotransferase (ALT/SGPT) 79 U/L (16-63) Alkaline Phosphatase 60 U/L (46-116) Creatine Kinase 94 U/L (39-308) Creatine Kinase MB (Mass) 0.5 ng/mL (0.0-3.6) Creatine Kinase MB Relative Index 0.5 % (0-4) Troponin I Quantitative < 0.017 ng/mL (0.000-0.055) < 0.017 ng/mL (0.000-0.055) GT-Qas-O-Type Natriuretic Peptide 54 pg/mL (0-124) Total Protein 8.0 g/dL (6.4-8.2) Albumin 4.0 g/dL (3.4-5.0) Lipase 143 U/L (73-393) Urine Collection Type Void Urine Color Yellow Urine Clarity Clear Urine pH 7.0 Urine Specific [place] <=1.005 Urine Protein Negative mg/dL (NEG-TRACE) Urine Glucose (UA) Negative mg/dL (NEG) Urine Ketones (Stick) Negative mg/dL (NEG) Urine Blood Negative (NEG) Urine Nitrite Negative (NEG) Urine Bilirubin Negative (NEG) Urine Urobilinogen Dipstick 2.0 mg/dL (0.2 mg/dL) Urine Leukocyte Esterase Negative (NEG) Urine RBC 0 /HPF (0-2) Urine WBC Occ /HPF (0-4) Urine Squamous Epithelial Cells Occ /LPF Urine Bacteria 0 /HPF (0-FEW) Urine Opiates Screen Pos (NEG) Urine Methadone Screen Neg (NEG) Urine Barbiturates Neg (NEG) Urine Phencyclidine Screen Neg (NEG) Urine Amphetamine/Methamphetamine Neg (NEG) Urine Benzodiazepines Screen Neg (NEG) Urine Cocaine Screen Neg (NEG) Urine Cannabinoids Screen Neg (NEG) Urine Ethyl Alcohol Neg (NEG) KYRA REYES MD May 22, 2017 09:38
[2017-05-22] MEDS ORDERED: FAMOTIDINE 20 MG TABLET. PO SCH (11:00)
[2017-05-22] MEDS: SUCRALFATE 1 GM/10 ML ORAL.SUSP. PEG SCH ×2 (11:30→17:12)
[2017-05-22] MEDS ORDERED: MIDAZOLAM HCL/PF 5 MG/5 ML VIAL. ONE (13:37)
[2017-05-22] MEDS ORDERED: fentaNYL PF VIAL 250 MCG/5 ML VIAL ONE (13:37)
--- NOTE | 2017-05-22 13:44 | PDOC ---
MODERATE SEDATION ASSESSMENT RISKS/ALTERNATIVES Risks/Alternatives Risks and alternatives of this type of sedation and procedure discussed with: RISK/ALTERNATIVES: Patient H & P ON CHART H & P H & P on chart and reviewed for co-morbid conditions and appropriate labs. H&P ON CHART: Yes STATUS PREG STATUS ASSESSED: Yes MEDS/ALLERGIES REVIEWED Meds/Allergies Reviewed Medications and Allergies including time and route of recently administered narcotics and sedatives. MEDS/ALLERGIES REVIEWED: Yes ASA RATING ASA RATING: I AIRWAY ASSESSMENT Airway Assessment Airway patency, oral function limitations, presence of caps, crowns, dentures, partials, and ability to extend neck assessed. AIRWAY ASSESSMENT: Yes MALLAMPATI SCORE MALLAMPATI SCORE: II PRE-SEDATION ASSESSMENT PRE-SEDATION ASSESSMENT: Yes MILKA LUCIA MD May 22, 2017 13:44
[2017-05-22] MEDS ORDERED: IOHEXOL 350 MG/ML 100 ML VIAL. IART ONE (13:45)
[2017-05-22] MEDS ORDERED: LIDOCAINE 2% 20 ML VIAL. IJ ONE (13:45)
[2017-05-22] MEDS ORDERED: fentaNYL PF VIAL 250 MCG/5 ML VIAL IV ONE (13:45)
[2017-05-22] MEDS ORDERED: MIDAZOLAM HCL/PF 5 MG/5 ML VIAL. IV ONE (13:45)
[2017-05-22] MEDS ORDERED: CONTRAST GIVEN MC PRN (14:00)
[2017-05-22] MEDS: HYDROcodone/APAP 5/325MG 1 TAB TABLET PO PRN (15:35)
--- NOTE | 2017-05-22 15:39 | CARD ---
APPROVED REPORT Procedure(s) performed: Left Heart Catheterization 30 Minutes of Moderate Sedation HISTORY The patient is a 41 year-old male with a history of : chronic lung disease, tobacco history() , hyper tension, dyslipidemia, Pt with risk factors and recurrent chest pains and admissions to the hospital that needs to rule out CAD and angina. He had previous work ups done and now needs a Heart Cath to de fine the situation of possible CAD. INDICATION The indication(s) include : chest pain. CASE TECHNIQUE The patient was brought electively into the cardiac catheterization lab. A timeout was performed conf irming the patient's name, date of , procedure, and site of procedure. All necessary parties wer e wearing the appropriate personal protective equipment and radiation monitoring devices. After expla ining the risks and benefits of the procedure, informed consent was obtained.(See nursing notes for m edications administered). The right groin was sterilely prepped and draped. The right femoral groin w as infiltrated with 2% Lidocaine subcutaneous anesthesia. During this case, Fluoroscopy and Iso-osmol ar contrast were used for imaging. A sheath was inserted into the right femoral artery without diffic ulty. Coronary angiography was performed using coronary diagnostic catheters. The left coronary syste m was accessed and visualized with a Diagnostic catheter. The right coronary system was accessed and visualized with a Diagnostic catheter. The left ventricle was accessed and visualized with a Diagnost ic catheter. Left ventricular/Aortic Valve gradient assessed on pullback. Left ventriculogram was per formed in PALENCIA projection. Pre-demployment femoral angiogram was performed . Closure device was deploy ed with a Angioseal without any complications. The patient tolerated the procedure well and there wer e no complications associated with the procedure. Coronary Angiography The patient's coronary anatomy is right dominant. The left main coronary artery is a large size vessel free of disease. The left main trifurcates to th e left anterior descending, circumflex, and ramus. The left anterior descending artery is a large size vessel free of disease. The first diagonal branch is a small size vessel free of disease. The second diagonal branch is a small size vessel free of di sease. The third diagonal branch is a small size vessel free of disease. The circumflex artery is a medium size vessel free of disease. The first obtuse marginal branch is a medium size vessel free of disease. The second obtuse marginal branch is a small size vessel free of disease. The ramus intermedius artery is a small size vessel free of disease. The right coronary artery is a large size vessel free of disease. The right posterior descending aly ry is a small size vessel free of disease. The right posterolateral branch is a medium size vessel wi th mild diffused disease. Left Ventriculography The left ventricle is normal in size with normal contractility. The left ventricular ejection fractio n is estimated to be 60%. The left ventricular end diastolic pressure is 18 mmHg. There was no gradie nt across the aortic valve upon pullback. Conclusion This pt does not have any significant CAD. I doubt that his pain is angina. Consider noncardiac work up. Recommendations Medical Therapy
--- NOTE | 2017-05-22 16:34 | PDOC3 ---
Discharge Summary* Date of Admission: May 21, 2017 Date of Discharge: May 22, 2017 Admitting Diagnosis Chest pain Problems: Final Diagnosis Chest Pain GERD CONSULTS Cardiology Brief Hospital Course Mr. Koehler is a 41 y/o man with known 3mm brain aneurism who presented to the ER with chest pain. States he woke up with substernal chest pain, pressure like, radiating to left neck and back, no N/V, sob or diaphoresis. still smoking. He had been admitted in 04/2017 for sz, after not having taken is antiepileptics for 3 weeks. He c/o chronic MUNOZ, unaffected by meds; he believes it is related to his aneurism 1. Chest pain: recurrent admit for same, MPI neg 1 month ago. cath done today: negative 2. GERD: suspect non-cardiac CP, prob GI (vs musculoskeletal) 3. HTN: accelerated at admit; now resolved 4. COPD: no acute issues. nebs PRN 5. Tobaccoism: ongoing. encouraged strongly to quit 6. Brain aneurism: 3mm, known, stable - NOT the cause of his MUNOZ 7. Seizures: no acute issues. on dilantin Physical Exam: VS: 112/75 46 16 95(RA) General: Alert, No acute distress Heart: Regular rate (and rhythm) Abdomen: Normal bowel sounds, Soft Extremities: No edema Disposition/Orders: D/C to Home CONDITION AT DISCHARGE: Improved Diet: Cardiac Scheduled Carbamazepine (Tegretol), 0.5 TAB PO BID, (Reported) Famotidine (Pepcid), 20 MG PO BID Sucralfate (Carafate), 1 TAB PO QID Scheduled PRN Butalb/Acetaminophen/Caffeine (Fioricet 50-300-40 Mg Capsule), 1 EACH PO PRN Q4HRS PRN for MIGRAINE HEADACHE Discontinued Medications Atenolol (Atenolol), 1 TAB PO BID Hydrocodone/Apap 5-325 ([place] 5-325 Tablet), 1 TAB PO PRN Q6HRS PRN for PAIN FOLLOW UP APPOINTMENT: PCP in 1-2 weeks Time Spent Total time spent with patient [] minutes for coordination of care, counseling, and education. KYRA REYES MD May 22, 2017 16:34
[2017-05-22] MEDS ORDERED: FAMO-63 PO (16:37)
[2017-05-22] MEDS ORDERED: SUCR1TAB35 PO (16:37)
[2017-05-23] MEDS ORDERED: ATENOLOL 50 MG TABLET. PO SCH (09:00)
== END 2017-05-22 18:41 | disposition home or self-care (01) ==
LOC: ER 10:53 → 6 SOUTH 13:30
PROVIDERS: ADMIT Internal Medicine; ATTEND Internal Medicine
DX: R07.89 Other chest pain (principal); I10 Essential (primary) hypertension; R56.9 Unspecified convulsions; G43.909 Migraine, unspecified, not intractable, without status migrainosus; J44.9 Chronic obstructive pulmonary disease, unspecified; F17.210 Nicotine dependence, cigarettes, uncomplicated; Z23 Encounter for immunization
CPT/HCPCS: 36415; 71010; 80048; 80076; 80185; 81001; 82553; 83690; 83735; 83880; 84484; 85027; 85610; 90471; 90732; 93005; 93458; 96372; 96374; 96375; 96376; 99285; C1769; C1771; C1892; G0269; G0378; G0481; J1644; J2001; J2250; J2270; J2405; J3010; Q9967; 99152; 99153; G0379; A6539

== ENCOUNTER 2017-08-15 20:57 | Emergency (ER) | payer SELFPAY ==
[~2017-08-15] VITALS: Ht 180.3 cm; Wt 77.1 kg
[~2017-08-15 20:57] MED LIST changes: +FAMO-63 PO; +SUCR1TAB35 PO
[2017-08-15] MEDS ORDERED: fentaNYL PF VIAL 100 MCG/2 ML VIAL IV PRN (21:15)
--- NOTE | 2017-08-15 21:24 | PHYS DOC ---
Past Medical History Past Medical History: COPD, Hypertension, Seizure Additional Past Medical Histor: collapse lungs, brain aneurysm Past Surgical History: Other Additional Past Surgical Histo: lung sx Alcohol Use: Occasionally Drug Use: None Adult General Chief Complaint Chief Complaint: CHEST PAIN HPI HPI Patient is a 41 year old male who presents with complaint of chest pain and headache. Patient states that his symptoms started suddenly 20 minutes prior to arrival. Patient states that he was sitting in a track at rest talking with a friend when his symptoms began. Patient is a poor historian and states that he has not had any recent cardiac tests done, however upon referencing his chart, the patient was admitted to the hospital on May 2017 with complaints of headache and chest pain. Patient underwent cardiac catheterization by Dr. Raya which showed no significant coronary artery disease at that time. The patient's chest pain symptoms were thought to be noncardiac. The patient also mentions that he has history of brain aneurysm and is concerned that his headache may be related to his aneurysm. The patient upon his last admission had similar complaints which did not appear to be due to his brain aneurysm, however it was suspected that he has migraine symptoms and was prescribed Fioricet. Patient rates pain as 10 out of 10. Patient states that the pain is in the middle of his chest and is sharp like "somebody stabbing me there." Patient also notes that he is having pain which she states is "not a headache," but rather sharp pain that he thinks is due to his aneurysm. Patient has not taken any medications for his symptoms. Review of Systems Review of Systems Constitutional: Denies fever or chills [] Eyes: Denies change in visual acuity, redness, or eye pain [] HENT: Denies nasal congestion or sore throat [] Respiratory: Denies cough or shortness of breath [] Cardiovascular: Chest pain, denies edema[] GI: Anorexia, denies nausea, vomiting, bloody stools or diarrhea [] : Denies dysuria or hematuria [] Musculoskeletal: Denies back pain or joint pain [] Integument: Denies rash or skin lesions [] Neurologic: "Head pain," denies focal weakness or sensory changes [] Current Medications Current Medications Current Medications Medications (Trade) Dose Ordered Sig/Daniella Start Time Stop Time Status Last Admin Dose Admin Carbamazepine (TEGretol XR) 100 mg 1X ONCE 08/16/17 00:30 08/16/17 00:31 08/16/17 00:05 100 MG Diphenhydramine HCl (Benadryl) 25 mg 1X ONCE 08/15/17 22:00 08/15/17 22:01 DC 08/15/17 21:42 25 MG Fentanyl Citrate (Fentanyl 2ml Vial) 50 mcg PRN Q15MIN PRN 08/15/17 21:15 08/16/17 21:14 08/15/17 21:43 50 MCG Metoclopramide HCl (Reglan) 10 mg 1X ONCE 08/15/17 22:00 08/15/17 22:01 DC 08/15/17 21:42 10 MG Ondansetron HCl (Zofran) 4 mg 1X ONCE 08/15/17 21:30 08/15/17 21:30 DC Sodium Chloride 1,000 ml @ 100 mls/hr Q10H 08/15/17 21:30 08/16/17 07:29 08/15/17 21:43 100 MLS/HR Allergies Allergies Allergies Coded Allergies Type Severity Reaction Last Updated Verified trazodone Allergy Severe PT REPORTS " MY HEART STOPPED" 11/24/15 Yes Physical Exam Physical Exam Constitutional: Alert, afebrile, appears in no acute distress, alcoholic halitosis present. [] HENT: Normocephalic, atraumatic, bilateral external ears normal, oropharynx moist, no oral exudates, nose normal. [] Eyes: PERRLA, EOMI, conjunctiva normal, no discharge. [] Neck: Normal range of motion, no midline tenderness, bilateral paraspinous muscle tenderness to palpation, supple, no stridor. [] Cardiovascular:Heart rate regular rhythm, no murmur [] Lungs & Thorax: Bilateral breath sounds clear to auscultation [] Abdomen: Bowel sounds normal, soft, no tenderness, no masses, no pulsatile masses. [] Skin: Warm, dry, no erythema, no rash. [] Back: No tenderness, no CVA tenderness. [] Extremities: No tenderness, no cyanosis, no clubbing, ROM intact, no edema. [] Neurologic: Alert and oriented X 3, normal motor function, normal sensory function, no focal deficits noted. [] Current Patient Data Vital Signs Vital Signs Date Time Temp Pulse Resp B/P (MAP) Pulse Ox O2 Delivery O2 Flow Rate FiO2 08/15/17 22:15 Room Air 08/15/17 21:05 98.2 78 31 101/62 (75) 98 98.2 Lab Values Laboratory Tests Test 08/15/17 21:03 08/15/17 21:05 08/15/17 21:55 08/15/17 23:20 White Blood Count 10.1 x10^3/uL (4.0-11.0) Red Blood Count 5.04 x10^6/uL (4.30-5.70) Hemoglobin 16.9 g/dL (13.0-17.5) Hematocrit 48.3 % (39.0-53.0) Mean Corpuscular Volume 96 fL (79-100) Mean Corpuscular Hemoglobin 34 pg (25-35) Mean Corpuscular Hemoglobin Concent 35 g/dL (31-37) Red Cell Distribution Width 12.8 % (11.5-14.5) Platelet Count 177 x10^3/uL (140-400) Neutrophils (%) (Auto) 61 % (31-73) Lymphocytes (%) (Auto) 29 % (24-48) Monocytes (%) (Auto) 7 % (0-9) Eosinophils (%) (Auto) 2 % (0-3) Basophils (%) (Auto) 1 % (0-3) Neutrophils # (Auto) 6.2 x10^3uL (1.8-7.7) Lymphocytes # (Auto) 2.9 x10^3/uL (1.0-4.8) Monocytes # (Auto) 0.7 x10^3/uL (0.0-1.1) Eosinophils # (Auto) 0.2 x10^3/uL (0.0-0.7) Basophils # (Auto) 0.1 x10^3/uL (0.0-0.2) Sodium Level 135 mmol/L (136-145) L Potassium Level 3.6 mmol/L (3.5-5.1) Chloride Level 98 mmol/L (98-107) Carbon Dioxide Level 25 mmol/L (21-32) Anion Gap 12 (6-14) Blood Urea Nitrogen 8 mg/dL (8-26) Creatinine 1.1 mg/dL (0.7-1.3) Estimated GFR (Cockcroft-Gault) 74.1 BUN/Creatinine Ratio 7 (6-20) Glucose Level 120 mg/dL (70-99) H Calcium Level 8.7 mg/dL (8.5-10.1) Magnesium Level 2.0 mg/dL (1.8-2.4) Total Bilirubin 0.5 mg/dL (0.2-1.0) Aspartate Amino Transferase (AST) 55 U/L (15-37) H Alanine Aminotransferase (ALT) 68 U/L (16-63) H Alkaline Phosphatase 61 U/L (46-116) Creatine Kinase 234 U/L (39-308) 201 U/L (39-308) Creatine Kinase MB (Mass) 1.2 ng/mL (0.0-3.6) 1.1 ng/mL (0.0-3.6) Creatine Kinase MB Relative Index 0.5 % (0-4) 0.5 % (0-4) Troponin I Quantitative < 0.017 ng/mL (0.000-0.055) < 0.017 ng/mL (0.000-0.055) HN-Tzr-E-Type Natriuretic Peptide 108 pg/mL (0-124) Total Protein 7.8 g/dL (6.4-8.2) Albumin 4.2 g/dL (3.4-5.0) Albumin/Globulin Ratio 1.2 (1.0-1.7) Lipase 162 U/L (73-393) Ethyl Alcohol Level 115 mg/dL (0-10) H Carbamazepine (Tegretol) Level < 0.5 mcg/mL (4.0-12.0) L Carbamazepine Last Dose Date 08/15/17 Carbamazepine Last Dose Time 0800 Urine Collection Type Unknown Urine Color Yellow Urine Clarity Clear Urine pH 5.5 Urine Specific [place] <=1.005 Urine Protein Negative mg/dL (NEG-TRACE) Urine Glucose (UA) Negative mg/dL (NEG) Urine Ketones (Stick) Negative mg/dL (NEG) Urine Blood Negative (NEG) Urine Nitrite Negative (NEG) Urine Bilirubin Negative (NEG) Urine Urobilinogen Dipstick 0.2 mg/dL (0.2 mg/dL) Urine Leukocyte Esterase Negative (NEG) Urine RBC 0 /HPF (0-2) Urine WBC 0 /HPF (0-4) Urine Bacteria 0 /HPF (0-FEW) Urine Opiates Screen Neg (NEG) Urine Methadone Screen Neg (NEG) Urine Barbiturates Neg (NEG) Urine Phencyclidine Screen Neg (NEG) Urine Amphetamine/Methamphetamine Neg (NEG) Urine Benzodiazepines Screen Neg (NEG) Urine Cocaine Screen Neg (NEG) Urine Cannabinoids Screen Neg (NEG) Urine Ethyl Alcohol Pos (NEG) Laboratory Tests 08/15/17 21:03 Laboratory Tests 08/15/17 21:03 EKG EKG Interpreted by me: Heart rate 82, sinus rhythm, normal intervals, left axis deviation, no acute ST/T-wave abnormalities present[] Radiology/Procedures Radiology/Procedures One view AP chest x-ray interpreted by me: No infiltrates, no effusions, normal cardiac silhouette [facility] [address] [place] [address] IMAGING REPORT Signed PATIENT: YARI MARTIN ACCOUNT: [id number] : 1975 LOCATION: ER AGE: 41 SEX: M EXAM STATUS: REG ER ORD. PHYSICIAN: AMEE KNIGHT MD REASON: headache, hx of brain aneurysm PROCEDURE: CT HEAD WO CONTRAST CT scan of the head without contrast 08/15/2017 Clinical History: Headaches. Technique: Unenhanced, contiguous, 5 mm axial sections were obtained through the head. One or more of the following individualized dose reduction techniques were utilized for this study: 1. Automated exposure control. 2. Adjustment of the mA and/or kV according to patient size. 3. Use of iterative reconstruction technique. Findings: Comparison study is dated 12/17/2016. There is mild generalized parenchymal atrophy. No acute parenchymal abnormality is seen. No extra-axial fluid collection is noted. Atherosclerotic calcification of the distal left vertebral artery and the cavernous portion of the left internal carotid artery is seen. No skull fracture is identified. IMPRESSION: No acute intracranial abnormality is seen. Electronically signed by: Butch Ring MD (08/15/2017 9:46 PM) [facility] DICTATED and SIGNED BY: BUTCH RING MD DATE: 08/15/17 2141 CC: AMEE KNIGHT MD; NO PCP ~ [] Course & Med Decision Making Course & Med Decision Making Pertinent Labs and Imaging studies reviewed. (See chart for details) CT head negative for acute intercranial bleeding. Patient's pain atypical. Patient has had recent cardiac catheterization with no significant stenosis identified within the last 4 months. I have low suspicion that the patient's chest pain is due to acute cardiac pathology. Patient's symptoms likely secondary to GI origin. The patient was treated with IV fluids, Reglan, Benadryl , fentanyl, and GI cocktail. On reevaluation, symptoms have improved and vital signs remained stable. Patient found to have a immeasurable Tegretol level. Patient claims that he has been taking this medication up until yesterday. I suspect that this is not the case as the patient does not have any measurable Tegretol in his system. He does state that he is out of this medication and thus I will write him for a month's supply. Patient will also be written for Fioricet for headache. Recommended use of Pepcid [id number] to reduce stomach acid as I suspect this could be contributing to the patient's chest pain symptoms. Advised follow-up in 3-5 days for reevaluation with primary doctor and return to emergency department for any worsening symptoms. Patient voiced understanding and in agreement with treatment plan. Dragon Disclaimer Dragon Disclaimer This electronic medical record was generated, in whole or in part, using a voice recognition dictation system. Departure Departure Impression: Primary Impression: Head ache Additional Impression: Atypical chest pain Disposition: 01 HOME, SELF-CARE Condition: IMPROVED Referrals: NO PCP (PCP) Patient Instructions: Chest Pain (Nonspecific), General Headache Without Cause Additional Instructions: Follow-up with your primary doctor in 3-5 days for reevaluation. Return to the emergency department for any worsening symptoms. Scripts Butalb/Acetaminophen/Caffeine ([id number] 50-325-40) 1 Each Tablet 1 EACH PO Q6HRS Y for HEADACHE, #30 TAB Prov: AMEE KNIGHT MD 08/16/17 Carbamazepine (Carbamazepine ER) 100 Mg Tab.er.12h 100 MG PO BID, #60 TAB.SR Prov: AMEE KNIGHT MD 08/16/17 Problem Qualifiers Primary Impression: Head ache Headache type: unspecified Headache chronicity pattern: acute headache Intractability: not intractable Qualified Codes: R51 - Headache AMEE KNIGHT MD Aug 15, 2017 21:24
[2017-08-15 21:27] LABS: BASO # 0.1 x10^3/uL (0.0-0.2); BASO % 1 % (0-3); EOS % 2 % (0-3); HEMATOCRIT 48.3 % (39.0-53.0); HEMOGLOBIN 16.9 g/dL (13.0-17.5); LYMPH # 2.9 x10^3/uL (1.0-4.8); LYMPH % 29 % (24-48); MEAN CORPUSCULAR HEMOGLOBIN 34 pg (25-35); MEAN CORPUSCULAR HGB CONC 35 g/dL (31-37); MEAN CORPUSCULAR VOLUME 96 fL (79-100); MONO % 7 % (0-9); NEUT % 61 % (31-73); PLATELET COUNT 177 x10^3/uL (140-400); RED BLOOD COUNT 5.04 x10^6/uL (4.30-5.70); RED CELL DISTRIBUTION WIDTH 12.8 % (11.5-14.5); WHITE BLOOD COUNT 10.1 x10^3/uL (4.0-11.0)
[2017-08-15] MEDS ORDERED: IV NORMAL SALINE 1000ML BAG 1,000 ML IV SCH (21:30)
[2017-08-15] MEDS ORDERED: ONDANSETRON PF 4 MG/2 ML VIAL. IV ONE (21:30)
--- NOTE | 2017-08-15 21:50 | RAD ---
CT scan of the head without contrast 08/15/2017 Clinical History: Headaches. Technique: Unenhanced, contiguous, 5 mm axial sections were obtained through the head. One or more of the following individualized dose reduction techniques were utilized for this study: 1. Automated exposure control. 2. Adjustment of the mA and/or kV according to patient size. 3. Use of iterative reconstruction technique. Findings: Comparison study is dated 12/17/2016. There is mild generalized parenchymal atrophy. No acute parenchymal abnormality is seen. No extra-axial fluid collection is noted. Atherosclerotic calcification of the distal left vertebral artery and the cavernous portion of the left internal carotid artery is seen. No skull fracture is identified. IMPRESSION: No acute intracranial abnormality is seen. Electronically signed by: Butch Ring MD (08/15/2017 9:46 PM) [facility]
[2017-08-15] MEDS ORDERED: diphenhydrAMINE 50 MG/ML VIAL IVP ONE (22:00)
[2017-08-15] MEDS ORDERED: METOCLOPRAMIDE HCL 10 MG/2 ML VIAL. IV ONE (22:00)
[2017-08-15 22:03] LABS: BILIRUBIN,URINE NEGATIVE (NEG); GLUCOSE,URINE NEGATIVE (NEG); NITRITE,URINE NEGATIVE (NEG); PH,URINE 5.5; PROTEIN,URINE NEGATIVE (NEG-TRACE); UROBILINOGEN,URINE 0.2 mg/dL (0.2 mg/dL)
[2017-08-15 22:04] LABS: ALBUMIN 4.2 g/dL (3.4-5.0); ALBUMIN/GLOBULIN RATIO 1.2 (1.0-1.7); CALCIUM 8.7 mg/dL (8.5-10.1); CREATININE 1.1 mg/dL (0.7-1.3); GFR 74.1; POTASSIUM 3.6 mmol/L (3.5-5.1); TOTAL BILIRUBIN 0.5 mg/dL (0.2-1.0); TOTAL PROTEIN 7.8 g/dL (6.4-8.2)
[2017-08-15 22:08] LABS: BACTERIA,URINE 0 /HPF (0-FEW); BARBITURATES NEG (NEG); BENZODIAZEPINES NEG (NEG); CANNABINOIDS NEG (NEG); COCAINE NEG (NEG); METHADONE NEG (NEG); OPIATES NEG (NEG); PHENCYCLIDINE NEG (NEG); RBC,URINE 0 /HPF (0-2); WBC,URINE 0 /HPF (0-4)
[2017-08-15 22:10] LABS: CKMB MASS 1.2 ng/mL (0.0-3.6)
[2017-08-16 00:09] VITALS: BP 124/80
[2017-08-16 00:10] LABS: CKMB MASS 1.1 ng/mL (0.0-3.6)
[2017-08-16] MEDS ORDERED: BUTA1TAB23 PO (00:26)
[2017-08-16] MEDS ORDERED: [UNRECOGNIZED DRUG - CODE] PO (00:26)
--- NOTE | 2017-08-16 07:28 | EKG ---
[facility] [address] [place] [address] Test Date: 2017-08-15 Test Time: 21:09:21 Pat Name: YARI MARTIN Department: Room: Gender: M [employer]: : 1975 Requested By: AMEE KNIGHT Order Number: [id number] Reading MD: Margaret Spencer Measurements Intervals [place] Rate: 82 P: -28 ME: 108 QRS: -33 QRSD: 104 T: 99 QT: 380 QTc: 447 Interpretive Statements SINUS RHYTHM ABNORMAL LEFT AXIS DEVIATION LOW LIMB LEAD VOLTAGE LEFT ANTERIOR FASCICULAR BLOCK QRS(T) CONTOUR ABNORMALITY CANNOT RULE OUT ANTEROSEPTAL MYOCARDIAL DAMAGE Electronically Signed On 08-17-2017 19:21:35 CDT by Margaret Spencer
--- NOTE | 2017-08-16 08:37 | RAD ---
Portable AP upright view CXR: Clinical indications: Chest pain today. Comparison: May 21, 2017. Findings: No acute lung infiltrate or pleural effusion or pulmonary edema or lung mass or pneumothorax is seen. The heart size, pulmonary vasculature, mediastinum and both edgard are unremarkable. Impression: No acute radiographic abnormality is seen.
== END 2017-08-16 00:30 | disposition home or self-care (01) ==
LOC: ER 20:57
DX: R51 Headache (principal); R07.89 Other chest pain; R63.0 Anorexia; J44.9 Chronic obstructive pulmonary disease, unspecified; I10 Essential (primary) hypertension; I67.1 Cerebral aneurysm, nonruptured; Z88.5 Allergy status to narcotic agent
CPT/HCPCS: 36415; 70450; 71010; 80053; 80156; 80307; 81001; 82553; 83690; 83735; 83880; 84484; 85025; 93005; 96361; 96374; 96375; 99285; G0480; J1200; J2765; J3010; J7030; G0479

== ENCOUNTER 2017-08-21 21:31 | Emergency (ER) | payer SELFPAY ==
[~2017-08-21] VITALS: Ht 180.3 cm; Wt 77.1 kg
[~2017-08-21 21:31] MED LIST changes: +BUTA1TAB23 PO; +[UNRECOGNIZED DRUG - CODE] PO
[2017-08-21] MEDS ORDERED: IV NORMAL SALINE 1000ML BAG 1,000 ML IV SCH (21:42)
[2017-08-21] MEDS ORDERED: 0.9 % SODIUM CHLORIDE 10 ML DISP.SYRIN. IV PRN (21:45)
--- NOTE | 2017-08-21 21:56 | PHYS DOC ---
Past Medical History Past Medical History: COPD, Hypertension, Seizure Additional Past Medical Histor: collapse lungs, brain aneurysm Past Surgical History: Other Additional Past Surgical Histo: lung sx Alcohol Use: Occasionally Drug Use: None Adult General Chief Complaint Chief Complaint: GROIN PAIN HPI HPI he is a pleasant 41-year-old male with history of intracranial aneurysm, seizure disorder and hypertension who presents with testicular pain began earlier today while climbing up and down ladders. 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 He denies any localized trauma but has had some mild dysuria or without urgency or frequency. He denies any penile discharge bleeding or hematuria. Patient and noted a small localized area swelling the superior anterior portion of the right testicle. He denies any redness to the skin, denies any fevers, chills, abdominal pain, nausea, vomiting or other symptoms. He further denies any history of sexual transmitted diseases or new sexual partners. Patient pain is a dull ache 6 of 10 at this time. It is not improved with movement of the testicle. Review of Systems Review of Systems Constitutional: Denies fever or chills [] Eyes: Denies change in visual acuity, redness, or eye pain [] HENT: Denies nasal congestion or sore throat [] Respiratory: Denies cough or shortness of breath [] Cardiovascular: No additional information not addressed in HPI [] GI: Denies abdominal pain, nausea, vomiting, bloody stools or diarrhea [] : Does describe a small amount of dysuria without urgency or frequency denies hematuria but he is complaining of right testicular pain. Musculoskeletal: Denies back pain or joint pain [] Integument: Denies rash or skin lesions [] Neurologic: Denies headache, focal weakness or sensory changes [] Endocrine: Denies polyuria or polydipsia [] Current Medications Current Medications Current Medications Medications (Trade) Dose Ordered Sig/Daniella Start Time Stop Time Status Last Admin Dose Admin Ketorolac Tromethamine (Toradol) 30 mg 1X ONCE 08/21/17 22:00 08/21/17 22:01 DC 08/21/17 22:19 30 MG Sodium Chloride (Normal Saline Flush) 10 ml QSHIFT PRN 08/21/17 21:45 Allergies Allergies Allergies Coded Allergies Type Severity Reaction Last Updated Verified trazodone Allergy Severe PT REPORTS " MY HEART STOPPED" 11/24/15 Yes Physical Exam Physical Exam Constitutional: Well developed, well nourished, no acute distress, non-toxic appearance. [] Cardiovascular:Heart rate regular rhythm, no murmur [] Lungs & Thorax: Bilateral breath sounds clear to auscultation [] Abdomen: Bowel sounds normal, soft, no tenderness, no masses, no pulsatile masses. [] Skin: Warm, dry, no erythema, no rash. [] : Patient noted to have normal external male genitalia circumcised. No penile discharge no lesions or rash along the penis shaft. Patient has normal cremasteric reflex in each testicle. Patient has no tenderness along the left testicle with a normal testicular lie. Patient has marked tenderness to palpation and a small posterior mass noted. Superior pole of the epididymis not within the testicle itself. There is normal testicular lie with epigastric reflex intact in this testicle as well negative friend sign. Patient's scrotum looks normal with no evidence of erythema no bogginess no warmth. Neurologic: Alert and oriented X 3, Psychologic: Affect normal, judgement normal, mood normal. [] Current Patient Data Vital Signs Vital Signs Date Time Temp Pulse Resp B/P (MAP) Pulse Ox O2 Delivery O2 Flow Rate FiO2 08/21/17 21:35 145/100 (115) Lab Values Laboratory Tests Test 08/21/17 22:50 Urine Collection Type Unknown Urine Color Yellow Urine Clarity Clear Urine pH 6.0 Urine Specific [place] <=1.005 Urine Protein Negative mg/dL (NEG-TRACE) Urine Glucose (UA) Negative mg/dL (NEG) Urine Ketones (Stick) Negative mg/dL (NEG) Urine Blood Negative (NEG) Urine Nitrite Negative (NEG) Urine Bilirubin Negative (NEG) Urine Urobilinogen Dipstick 0.2 mg/dL (0.2 mg/dL) Urine Leukocyte Esterase Negative (NEG) Urine RBC 0 /HPF (0-2) Urine WBC 0 /HPF (0-4) Urine Bacteria 0 /HPF (0-FEW) EKG EKG [] Radiology/Procedures Radiology/Procedures [] [facility] [address] [place] [address] IMAGING REPORT Signed PATIENT: YARI MARTIN ACCOUNT: [id number] : 1975 LOCATION: ER AGE: 41 SEX: M EXAM STATUS: REG ER ORD. PHYSICIAN: CHRIS GAYLE MD REASON: right testicle pain PROCEDURE: TESTICULAR/SCROTUM Scrotal ultrasound History: Right scrotal pain. Comparison: None. Technique: Grayscale, color Doppler, and spectral Doppler imaging was performed of the scrotum and contents. Findings: Right testicle measures 3.0 x 4.4 x 2.0 cm. Left testicle measures 3.2 x 3.5 x 1.9 cm. Both testicles have homogeneous echogenicity and are without evidence of mass. Left epididymis is unremarkable. Right epididymis demonstrates small cysts versus spermatocele with the larger measuring 5 mm. In the right hemiscrotum, which appears adjacent to the epididymis, there is a complex lesion which measures 1.4 cm in maximum dimension. This has central hyperechoic elements and surrounding hypoechoic elements. Impression: 1. No evidence of testicular mass or torsion. 2. In the right hemiscrotum, which appears adjacent to the epididymis, there is a complex lesion which measures 1.4 cm maximum dimension. This is nonspecific, but extratesticular lesions are generally benign. Electronically signed by: Clay Houston MD (08/21/2017 10:44 PM) [facility] DICTATED and SIGNED BY: CLAY HOUSTON MD DATE: 08/21/17 2239 CC: CHRIS GAYLE MD; NO PCP ~ Course & Med Decision Making Course & Med Decision Making Pertinent Labs and Imaging studies reviewed. (See chart for details) []Given the location of his pain Differential diagnosis for testicular pain includes but isn't limited to: Acute epididymitis, Orchitis, Testicular torsion, Foreign nurse gangrene, Torsion of the appendix testis, Hydrocele Spermatocele Gonorrhea and Chlamydia Trauma, post vasectomy pain, inguinal hernia, testicular cancer, HSP, referred pain from an abdominal aneurysm, kidney stone, lumbar or sacral nerve root impingement, retrocecal abscess, retrocecal appendicitis, which peritoneal tumor , he will have ultrasound complete as well as urinalysis. Urinalysis is clear patient also demonstrates a mass outside the testicle no clear evidence of epididymitis or testicular torsion. Patient has no evidence of orchitis via small masses located outside the testicle itself which is not like to be cancer. Patient will be sent to urology with supportive care and precautions. Time is now 11 PM patient I discussed results the ultrasound as well as urinalysis and follow-up plan for treatment. Reassured patient that this is not likely testicular torsion and this testicular mass is not likely cancer. But I' ll have him follow-up with urology for continued evaluation of this particular issue. I did tell him that this small hematocele noted on ultrasound. Dragon Disclaimer Dragon Disclaimer This electronic medical record was generated, in whole or in part, using a voice recognition dictation system. Departure Departure Impression: Primary Impression: Testicular mass Disposition: HOME, SELF-CARE Condition: IMPROVED Referrals: NO PCP (PCP) Patient Instructions: Testicular Masses, Testicular Problems and Self-Exam Additional Instructions: My discharge plan Follow up: In addition patient is asked to followup with their primary doctor, within a week for followup examination and to address patient's ongoing medical conditions. Because patient does not have a regular medical doctor, a local physician Resource Sheet will be provided to establish care primary care. Patient is advised that in the Emergency Department primary complaints are addressed and only in light of known signs and symptoms. Patient should return immediately to the emergency department if new signs and symptoms develop or patient's condition worsens in any way. At time of discharge patient was in stable condition and had verbalized understanding of the discharge instructions. Scripts Naproxen (NAPROSYN) 500 Mg Tablet 1 TAB PO BID, #14 TAB 1 Refill Prov: CHRIS GAYLE MD 08/21/17 Hydrocodone Bit/Acetaminophen (HYDROCODONE-APAP 5-325 ) 1 Each Tablet 1-2 TAB PO PRN Q6HRS Y for PAIN for 5 Days, #10 TAB 0 Refills Prov: CHRIS GAYLE MD 08/21/17 CHRIS GAYLE MD Aug 21, 2017 21:56
[2017-08-21] MEDS ORDERED: KETOROLAC 30 MG/ML INJ. IV ONE (22:00)
[2017-08-21 22:25] VITALS: BP 141/91
--- NOTE | 2017-08-21 22:47 | RAD ---
Scrotal ultrasound History: Right scrotal pain. Comparison: None. Technique: Grayscale, color Doppler, and spectral Doppler imaging was performed of the scrotum and contents. Findings: Right testicle measures 3.0 x 4.4 x 2.0 cm. Left testicle measures 3.2 x 3.5 x 1.9 cm. Both testicles have homogeneous echogenicity and are without evidence of mass. Left epididymis is unremarkable. Right epididymis demonstrates small cysts versus spermatocele with the larger measuring 5 mm. In the right hemiscrotum, which appears adjacent to the epididymis, there is a complex lesion which measures 1.4 cm in maximum dimension. This has central hyperechoic elements and surrounding hypoechoic elements. Impression: 1. No evidence of testicular mass or torsion. 2. In the right hemiscrotum, which appears adjacent to the epididymis, there is a complex lesion which measures 1.4 cm maximum dimension. This is nonspecific, but extratesticular lesions are generally benign. Electronically signed by: Clay Houston MD (08/21/2017 10:44 PM) [employer]
[2017-08-21 22:59] LABS: BILIRUBIN,URINE NEGATIVE (NEG); GLUCOSE,URINE NEGATIVE (NEG); NITRITE,URINE NEGATIVE (NEG); PROTEIN,URINE NEGATIVE (NEG-TRACE); UROBILINOGEN,URINE 0.2 mg/dL (0.2 mg/dL)
[2017-08-21 23:04] LABS: BACTERIA,URINE 0 /HPF (0-FEW); RBC,URINE 0 /HPF (0-2); WBC,URINE 0 /HPF (0-4)
[2017-08-21] MEDS ORDERED: HYDR-2758 PO (23:08)
[2017-08-21] MEDS ORDERED: NAPR500T PO (23:08)
== END 2017-08-21 23:20 | disposition home or self-care (01) ==
LOC: ER 21:31
DX: N50.89 Other specified disorders of the male genital organs (principal); J44.9 Chronic obstructive pulmonary disease, unspecified; I10 Essential (primary) hypertension; I67.1 Cerebral aneurysm, nonruptured; G40.909 Epilepsy, unspecified, not intractable, without status epilepticus; Z88.5 Allergy status to narcotic agent
CPT/HCPCS: 76870; 81001; 96361; 96374; 99285; J1885; J7030

== ENCOUNTER 2018-10-23 01:52 | Emergency (ER) | payer OTHER ==
[~2018-10-23] VITALS: Ht 180.3 cm; Wt 81.6 kg
[~2018-10-23 01:52] MED LIST changes: -HYDR-2758 PO; +HYDR-2761 PO; +HYDR-3164 PO; -HYDR-971 PO; +NAPR-683 PO
--- NOTE | 2018-10-23 02:39 | PHYS DOC ---
Past Medical History Past Medical History: COPD, Hypertension, Seizure Additional Past Medical Histor: collapse lungs, brain aneurysm Past Surgical History: Other Additional Past Surgical Histo: lung sx Alcohol Use: Occasionally Drug Use: None Adult General Chief Complaint Chief Complaint: SEIZURE HPI HPI Patient is a 43 year old male presenting with seizure. He was sitting on a couch she stood up he ended up on the ground he had urinary incontinence he said he woke up his neck really hurts is having increasing posterior headache says he has a known 4 mm aneurysm that they're watching TV thinks that is what is causing his pain. In addition he has intermittent sharp left-sided chest pain that comes and goes he's had for the last 30 minutes. He has had a long-standing basis including 2 years ago when he came to this ER for very similar symptoms. Review of Systems Review of Systems Constitutional: Denies fever or chills [] Eyes: Denies change in visual acuity, redness, or eye pain [] HENT: Denies nasal congestion or sore throat [] Respiratory: Cardiovascular: No additional information not addressed in HPI [] Neurologic: Denies headache, focal weakness or sensory changes [] Endocrine: Denies polyuria or polydipsia [] All other systems were reviewed and found to be within normal limits, except as documented in this note. Current Medications Current Medications Current Medications Medications (Trade) Dose Ordered Sig/Daniella Start Time Stop Time Status Last Admin Dose Admin Acetaminophen/ Hydrocodone Bitart (Lortab 5/325) 2 tab 1X ONCE 10/23/18 03:00 10/23/18 03:01 DC 10/23/18 03:04 2 TAB Amlodipine Besylate (Norvasc) 10 mg 1X ONCE 10/23/18 03:00 10/23/18 03:01 DC 10/23/18 03:05 10 MG Carbamazepine (TEGretol) 500 mg 1X ONCE 10/23/18 03:00 10/23/18 03:01 DC 10/23/18 03:05 500 MG Allergies Allergies Allergies Coded Allergies Type Severity Reaction Last Updated Verified trazodone Allergy Severe PT REPORTS " MY HEART STOPPED" 11/24/15 Yes Physical Exam Physical Exam Constitutional: Well developed, well nourished, no acute distress, non-toxic appearance. [] HENT: Normocephalic, atraumatic, bilateral external ears normal, oropharynx moist, no oral exudates, nose normal. [] Eyes: PERRLA, EOMI, conjunctiva normal, no discharge. [] Neck: Normal range of motion, there is midline and bilateral paraspinous tenderness, supple, no stridor. [] Cardiovascular:Heart rate regular rhythm, no murmur [] Lungs & Thorax: Bilateral breath sounds clear to auscultation [] Abdomen: Bowel sounds normal, soft, no tenderness, no masses, no pulsatile masses. [] Skin: Warm, dry, no erythema, no rash. [] Back: No tenderness, no CVA tenderness. [] Extremities: No tenderness, no cyanosis, no clubbing, ROM intact, no edema. [] Neurologic: Alert and oriented X 3, normal motor function, normal sensory function, no focal deficits noted. [] Psychologic: Affect normal, judgement normal, mood normal. [] Current Patient Data Vital Signs Vital Signs Date Time Temp Pulse Resp B/P (MAP) Pulse Ox O2 Delivery O2 Flow Rate FiO2 10/23/18 03:36 88 20 97 10/23/18 03:05 178/101 10/23/18 02:20 99.1 99.1 Lab Values Laboratory Tests Test 10/23/18 02:43 10/23/18 03:50 White Blood Count 8.7 x10^3/uL (4.0-11.0) Red Blood Count 5.04 x10^6/uL (4.30-5.70) Hemoglobin 17.5 g/dL (13.0-17.5) Hematocrit 49.6 % (39.0-53.0) Mean Corpuscular Volume 99 fL (79-100) Mean Corpuscular Hemoglobin 35 pg (25-35) Mean Corpuscular Hemoglobin Concent 35 g/dL (31-37) Red Cell Distribution Width 14.0 % (11.5-14.5) Platelet Count 209 x10^3/uL (140-400) Neutrophils (%) (Auto) 58 % (31-73) Lymphocytes (%) (Auto) 31 % (24-48) Monocytes (%) (Auto) 8 % (0-9) Eosinophils (%) (Auto) 2 % (0-3) Basophils (%) (Auto) 1 % (0-3) Neutrophils # (Auto) 5.0 x10^3uL (1.8-7.7) Lymphocytes # (Auto) 2.7 x10^3/uL (1.0-4.8) Monocytes # (Auto) 0.7 x10^3/uL (0.0-1.1) Eosinophils # (Auto) 0.1 x10^3/uL (0.0-0.7) Basophils # (Auto) 0.1 x10^3/uL (0.0-0.2) Sodium Level 141 mmol/L (136-145) Potassium Level 3.6 mmol/L (3.5-5.1) Chloride Level 104 mmol/L (98-107) Carbon Dioxide Level 26 mmol/L (21-32) Anion Gap 11 (6-14) Blood Urea Nitrogen 8 mg/dL (8-26) Creatinine 1.0 mg/dL (0.7-1.3) Estimated GFR (Cockcroft-Gault) 81.9 BUN/Creatinine Ratio 8 (6-20) Glucose Level 57 mg/dL (70-99) L Calcium Level 9.1 mg/dL (8.5-10.1) Total Bilirubin 0.5 mg/dL (0.2-1.0) Aspartate Amino Transferase (AST) 49 U/L (15-37) H Alanine Aminotransferase (ALT) 61 U/L (16-63) Alkaline Phosphatase 68 U/L (46-116) Troponin I Quantitative < 0.017 ng/mL (0.000-0.055) Total Protein 8.0 g/dL (6.4-8.2) Albumin 3.9 g/dL (3.4-5.0) Albumin/Globulin Ratio 1.0 (1.0-1.7) Ethyl Alcohol Level 70 mg/dL (0-10) H Glucose (Fingerstick) 91 mg/dL (70-99) Laboratory Tests 10/23/18 02:43 Laboratory Tests 10/23/18 02:43 EKG EKG []Normal sinus rhythm rate of 84 no acute ischemic changes noted interpreted by me time of encounter QTc 431 Radiology/Procedures Radiology/Procedures [] Impressions: ct haed/csp neg acute Course & Med Decision Making Course & Med Decision Making Pertinent Labs and Imaging studies reviewed. (See chart for details) []43-year-old male with history of chronic headaches has a small Acom aneurysm that is being monitored. We did a head and C-spine CT today to rule out trauma due to unwitnessed fall and seizure. These came back negative. EKG troponin done for a history of recurrent atypical chest pain, low very low suspicion for acute coronary syndrome. Patient was given blood pressure control in the emergency room as well as a dose of Tegretol we will give a prescription for Tegretol as well. Likely breakthrough seizure from being off the Tegretol for the last several days. He also had some alcohol earlier today which may have contributed. pt had juice bg went to 91, likely from starvation effect from etoh. no hx of diabetes. refilled his meds, he is due to get disability insurance he tells me so hopefully he will be able to pay for the medication soon. recommended f/u for his bp as well. Dragon Disclaimer Dragon Disclaimer This electronic medical record was generated, in whole or in part, using a voice recognition dictation system. Departure Departure Impression: Primary Impression: Seizure Disposition: HOME, SELF-CARE Condition: STABLE Referrals: NO PCP (PCP) Scripts Atenolol (ATENOLOL) 50 Mg Tablet 1 TAB PO DAILY, #30 TAB 1 Refill Prov: SUNNY FLORES MD 10/23/18 Carbamazepine (TEGRETOL) 200 Mg Tablet 2.5 TAB PO BID, #90 TAB 1 Refill Prov: SUNNY FLORES MD 10/23/18 SUNNY FLORES MD Oct 23, 2018 02:39
[2018-10-23 02:52] LABS: BASO # 0.1 x10^3/uL (0.0-0.2); BASO % 1 % (0-3); EOS # 0.1 x10^3/uL (0.0-0.7); EOS % 2 % (0-3); HEMATOCRIT 49.6 % (39.0-53.0); HEMOGLOBIN 17.5 g/dL (13.0-17.5); LYMPH # 2.7 x10^3/uL (1.0-4.8); LYMPH % 31 % (24-48); MEAN CORPUSCULAR HEMOGLOBIN 35 pg (25-35); MEAN CORPUSCULAR HGB CONC 35 g/dL (31-37); MEAN CORPUSCULAR VOLUME 99 fL (79-100); MONO # 0.7 x10^3/uL (0.0-1.1); MONO % 8 % (0-9); NEUT % 58 % (31-73); PLATELET COUNT 209 x10^3/uL (140-400); RED BLOOD COUNT 5.04 x10^6/uL (4.30-5.70); WHITE BLOOD COUNT 8.7 x10^3/uL (4.0-11.0)
[2018-10-23] MEDS ORDERED: carBAMazepine 200 MG TABLET PO ONE (03:00)
[2018-10-23] MEDS ORDERED: HYDROcodone/APAP 5/325MG 1 TAB TABLET PO ONE (03:00)
[2018-10-23] MEDS ORDERED: amLODIPine BESYLATE 5 MG TABLET PO ONE (03:00)
[2018-10-23 03:02] LABS: CALCIUM 9.1 mg/dL (8.5-10.1); GFR 81.9; POTASSIUM 3.6 mmol/L (3.5-5.1)
[2018-10-23 03:08] LABS: ALBUMIN 3.9 g/dL (3.4-5.0); TOTAL BILIRUBIN 0.5 mg/dL (0.2-1.0)
--- NOTE | 2018-10-23 03:22 | RAD ---
RS Compliance Statement: One or more of the following individualized dose reduction techniques were utilized for this examination: 1. Automated exposure control 2. Adjustment of the mA and/or kV according to patient size 3. Use of iterative reconstruction technique CT HEAD AND CERVICAL SPINE WITHOUT CONTRAST History: seizure; head/neck pain Comparison: CT head without contrast August 15, 2017. Procedure: Axial images are obtained of the head from the skull base through the vertex without IV contrast. Noncontrast helical CT of the cervical spine was performed. Axial, sagittal, and coronal reconstructions were obtained. Findings: The ventricles and sulci are normal for the patient's age. No mass-effect, midline shift, hemorrhage or obvious acute infarction is identified. Basilar cisterns are patent. Bone windows demonstrate no significant calvarial abnormality. The visualized paranasal sinuses are clear. Mastoid air cells are well aerated. There is no evidence of acute fracture or acute malalignment of the cervical spine. Straightening of normal cervical adenosis may be positional or due to muscle spasm. There is degenerative endplate spurring most advanced at C5/C6 and C7/T1. No perched or jumped facets. The craniovertebral junction is normal. Uncinate process hypertrophy of C5/C6 and C6/C7. There is severe right neural foraminal narrowing of C5/C6 secondary to this. Moderate to severe bilateral neural foraminal narrowing of C6/C7. Visualized soft tissues of the neck demonstrate no significant abnormalities. The visualized lung apices are clear. Suture material in the bilateral lung apices medially. IMPRESSION: 1. No acute intracranial abnormality. 2. No acute fracture of the cervical spine. Electronically signed by: Tom Avendano MD (10/23/2018 3:18 AM) [place] [id number]
[2018-10-23 03:36] VITALS: BP 168/105
[2018-10-23 04:03] LABS: BILIRUBIN,URINE NEGATIVE (NEG); CLARITY,URINE CLEAR; COLOR,URINE YELLOW; NITRITE,URINE NEGATIVE (NEG); PROTEIN,URINE NEGATIVE (NEG-TRACE); UROBILINOGEN,URINE 0.2 mg/dL (0.2 mg/dL)
[2018-10-23] MEDS ORDERED: CARB200T PO (04:06)
[2018-10-23] MEDS ORDERED: ATEN50TA PO (04:06)
[2018-10-23 04:11] LABS: BARBITURATES NEG (NEG); BENZODIAZEPINES NEG (NEG); CANNABINOIDS NEG (NEG); COCAINE NEG (NEG); METHADONE NEG (NEG); OPIATES NEG (NEG); PHENCYCLIDINE NEG (NEG)
[2018-10-23 04:24] LABS: AMPHETAMINE/METHAMPHETAMINE NEG (NEG)
[2018-10-23 04:34] LABS: BACTERIA,URINE 0 /HPF (0-FEW); RBC,URINE 0 /HPF (0-2); SQUAMOUS EPITHELIAL CELL,UR OCC /LPF; WBC,URINE 0 /HPF (0-4)
--- NOTE | 2018-10-23 07:05 | EKG ---
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
--- NOTE | 2018-10-25 11:36 | RAD ---
PROCEDURE: PORTABLE CHEST 1V CLINICAL INDICATION: SHORTNESS OF BREATH COMPARISON: 08/15/2017 FINDINGS: No pneumothorax identified. Cardiac and mediastinal contours unremarkable. No pulmonary consolidation or acute airspace disease. No acute osseous abnormalities identified. IMPRESSION: No pulmonary consolidation or acute airspace disease. Electronically signed by: Abdi Lawson DO (10/25/2018 11:32 AM) [facility]
== END 2018-10-23 04:09 | disposition home or self-care (01) ==
LOC: ER 01:52
DX: R56.9 Unspecified convulsions (principal); R51 Headache; R06.02 Shortness of breath; J44.9 Chronic obstructive pulmonary disease, unspecified; I10 Essential (primary) hypertension; Z88.8 Allergy status to other drugs, medicaments and biological substances
CPT/HCPCS: 36415; 70450; 71045; 72125; 80053; 80307; 81001; 82962; 84484; 85025; 93005; 99284; G0480

== ENCOUNTER 2020-02-18 17:05 | Observation (INO) | payer SELFPAY ==
[~2020-02-18] VITALS: Ht 180.3 cm; Wt 89.4 kg
[2020-02-18 17:38] LABS: BASO # 0.1 x10^3/uL (0.0-0.2); BASO % 1 % (0-3); EOS # 0.2 x10^3/uL (0.0-0.7); EOS % 2 % (0-3); HEMATOCRIT 53.8 % (39.0-53.0); HEMOGLOBIN 18.9 g/dL (13.0-17.5); LYMPH # 2.1 x10^3/uL (1.0-4.8); LYMPH % 21 % (24-48); MEAN CORPUSCULAR HEMOGLOBIN 34 pg (25-35); MEAN CORPUSCULAR HGB CONC 35 g/dL (31-37); MEAN CORPUSCULAR VOLUME 96 fL (79-100); MONO # 0.8 x10^3/uL (0.0-1.1); MONO % 8 % (0-9); NEUT # 6.8 x10^3/uL (1.8-7.7); NEUT % 68 % (31-73); PLATELET COUNT 242 x10^3/uL (140-400); RED BLOOD COUNT 5.64 x10^6/uL (4.30-5.70); RED CELL DISTRIBUTION WIDTH 13.8 % (11.5-14.5)
[2020-02-18 17:45] LABS: CALCIUM 9.1 mg/dL (8.5-10.1); CREATININE 1.2 mg/dL (0.7-1.3); GFR 66.1; PROTHROMBIN TIME PATIENT 13.4 SEC (11.7-14.0)
[2020-02-18 17:51] LABS: ALBUMIN 3.8 g/dL (3.4-5.0); TOTAL BILIRUBIN 0.5 mg/dL (0.2-1.0); TOTAL PROTEIN 7.7 g/dL (6.4-8.2)
--- NOTE | 2020-02-18 17:51 | EKG ---
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
[2020-02-18 18:38] LABS: BILIRUBIN,URINE NEGATIVE (NEG); CLARITY,URINE CLEAR; COLOR,URINE YELLOW; NITRITE,URINE NEGATIVE (NEG); PROTEIN,URINE NEGATIVE (NEG-TRACE)
[2020-02-18 18:44] LABS: BACTERIA,URINE 0 /HPF (0-FEW)
[2020-02-18] MEDS ORDERED: IV NORMAL SALINE 1000ML BAG 1,000 ML IV ONE (18:45)
[2020-02-18] MEDS ORDERED: MECLIZINE HCL 12.5 MG TABLET. PO ONE (18:45)
--- NOTE | 2020-02-18 19:19 | PHYS DOC ---
Past Medical History Past Medical History: CHF, COPD, Hypertension, Seizure Additional Past Medical Histor: collapse lungs, brain aneurysm,DDD,CHRONIC BACK PAIN Past Surgical History: Other Additional Past Surgical Histo: lung sx Smoking Status: Current Every Day Smoker Alcohol Use: Occasionally Drug Use: None General Adult EDM: Chief Complaint: DIZZY/LIGHT HEADED HPI: HPI: Patient is a 44 year old male who presents to the emergency department with complaints of feeling nauseated and dizzy after eating a piece of pizza this afternoon. Patient states that he also developed some nausea and chest pressure with the onset of the symptoms. He denies any diaphoresis, numbness, tingling, weakness, headache, vision changes, vomiting, diarrhea, abdominal pain, back pain, cough, shortness of breath, or wheezing. Patient states the dizziness increases with movement. Patient states that he has a history of a brain aneurysm, high blood pressure, COPD, seizures, degenerative disc disease, and heart disease. He smokes 1/2 to 1 pack of cigarettes a day he denies any illicit drug use or alcohol use. He currently rates the chest pressure 6 out of 10 on the pain scale, he denies any alleviating or exacerbating factors. Review of Systems: Review of Systems: Constitutional: Denies fever or chills. [] Eyes: Denies change in visual acuity. [] HENT: Denies nasal congestion or sore throat. [] Respiratory: Denies cough or shortness of breath. [] Cardiovascular: See HPI GI: Denies abdominal pain, vomiting, or diarrhea; see HPI : Denies dysuria. [] Musculoskeletal: Denies back pain or joint pain. [] Integument: Denies rash. [] Neurologic: See HPI Endocrine: Denies polyuria or polydipsia. [] Lymphatic: Denies swollen glands. [] Psychiatric: Denies depression or anxiety. [] Heart Score: HEART Score for Chest Pain: HEART Score for Chest Pain Response (Comments) Value History Slighlty/Non-Suspicious 0 ECG Nonspecific Repolarizatio 1 Age < 45 0 Risk Factors >3 Risk Factors or Hx CAD 2 Troponin < Normal Limit 0 Total 3 Risk Factors: Risk Factors: DM, Current or recent (<one month) smoker, HTN, HLP, family history of CAD, obesity. Risk Scores: Score 0 - 3: 2.5% MACE over next 6 weeks - Discharge Home Score 4 - 6: 20.3% MACE over next 6 weeks - Admit for Clinical Observation Score 7 - 10: 72.7% MACE over next 6 weeks - Early Invasive Strategies Current Medications: Current Medications Medications (Trade) Dose Ordered Sig/Daniella Start Time Stop Time Status Last Admin Dose Admin Meclizine HCl (Antivert) 25 mg 1X ONCE 02/18/20 18:45 02/18/20 18:46 DC 02/18/20 18:51 25 MG Sodium Chloride 1,000 ml @ 1,000 mls/hr 1X ONCE 02/18/20 18:45 02/18/20 19:44 02/18/20 18:51 1,000 MLS/HR Allergies: Allergies: Allergies Coded Allergies Type Severity Reaction Last Updated Verified trazodone Allergy Severe PT REPORTS " MY HEART STOPPED" 11/24/15 Yes Physical Exam: PE: Constitutional: Well developed, well nourished, no acute distress, non-toxic appearance. [] HENT: Normocephalic, atraumatic, bilateral external ears normal, nose normal. [] Eyes: PERRLA, EOMI, conjunctiva normal, no discharge, no nystagmus. [] Neck: Normal range of motion, no tenderness, supple, no stridor. [] Cardiovascular:Heart rate regular rhythm Lungs & Thorax: Bilateral breath sounds clear to auscultation, Respirations even and unlabored, no retractions, no respiratory distress [] Abdomen: Bowel sounds normal, soft, no tenderness, no masses, no pulsatile masses. [] Skin: Warm, dry, no erythema, no rash. [] Back: No tenderness Extremities: No cyanosis, no clubbing, ROM intact, no edema. [] Neurologic: Alert and oriented X 3, normal motor function, normal sensory function, no focal deficits noted. [] Psychologic: Affect normal, judgement normal, mood normal. [] Current Patient Data: Labs: Laboratory Tests Test 02/18/20 17:13 02/18/20 17:25 02/18/20 18:25 Glucose (Fingerstick) 129 mg/dL (70-99) H White Blood Count 10.0 x10^3/uL (4.0-11.0) Red Blood Count 5.64 x10^6/uL (4.30-5.70) Hemoglobin 18.9 g/dL (13.0-17.5) H Hematocrit 53.8 % (39.0-53.0) H Mean Corpuscular Volume 96 fL (79-100) Mean Corpuscular Hemoglobin 34 pg (25-35) Mean Corpuscular Hemoglobin Concent 35 g/dL (31-37) Red Cell Distribution Width 13.8 % (11.5-14.5) Platelet Count 242 x10^3/uL (140-400) Neutrophils (%) (Auto) 68 % (31-73) Lymphocytes (%) (Auto) 21 % (24-48) L Monocytes (%) (Auto) 8 % (0-9) Eosinophils (%) (Auto) 2 % (0-3) Basophils (%) (Auto) 1 % (0-3) Neutrophils # (Auto) 6.8 x10^3/uL (1.8-7.7) Lymphocytes # (Auto) 2.1 x10^3/uL (1.0-4.8) Monocytes # (Auto) 0.8 x10^3/uL (0.0-1.1) Eosinophils # (Auto) 0.2 x10^3/uL (0.0-0.7) Basophils # (Auto) 0.1 x10^3/uL (0.0-0.2) Prothrombin Time 13.4 SEC (11.7-14.0) Prothrombin Time INR 1.1 (0.8-1.1) Activated Partial Thromboplast Time 28 SEC (24-38) Sodium Level 140 mmol/L (136-145) Potassium Level 4.0 mmol/L (3.5-5.1) Chloride Level 103 mmol/L (98-107) Carbon Dioxide Level 29 mmol/L (21-32) Anion Gap 8 (6-14) Blood Urea Nitrogen 8 mg/dL (8-26) Creatinine 1.2 mg/dL (0.7-1.3) Estimated GFR (Cockcroft-Gault) 66.1 BUN/Creatinine Ratio 7 (6-20) Glucose Level 101 mg/dL (70-99) H Calcium Level 9.1 mg/dL (8.5-10.1) Total Bilirubin 0.5 mg/dL (0.2-1.0) Aspartate Amino Transferase (AST) 48 U/L (15-37) H Alanine Aminotransferase (ALT) 50 U/L (16-63) Alkaline Phosphatase 87 U/L (46-116) Creatine Kinase 82 U/L (39-308) Creatine Kinase MB (Mass) 0.8 ng/mL (0.0-3.6) Creatine Kinase MB Relative Index 1.0 % (0-4) Troponin I Quantitative < 0.017 ng/mL (0.000-0.055) NS-Hbf-K-Type Natriuretic Peptide 37 pg/mL (0-124) Total Protein 7.7 g/dL (6.4-8.2) Albumin 3.8 g/dL (3.4-5.0) Albumin/Globulin Ratio 1.0 (1.0-1.7) Urine Collection Type Unknown Urine Color Yellow Urine Clarity Clear Urine pH 6.0 (<5.0-8.0) Urine Specific Corea 1.015 (1.000-1.030) Urine Protein Negative mg/dL (NEG-TRACE) Urine Glucose (UA) Negative mg/dL (NEG) Urine Ketones (Stick) Negative mg/dL (NEG) Urine Blood Negative (NEG) Urine Nitrite Negative (NEG) Urine Bilirubin Negative (NEG) Urine Urobilinogen Dipstick 1.0 mg/dL (0.2 mg/dL) Urine Leukocyte Esterase Negative (NEG) Urine RBC 1-2 /HPF (0-2) Urine WBC 1-4 /HPF (0-4) Urine Bacteria 0 /HPF (0-FEW) Urine Mucus Mod /LPF Laboratory Tests 02/18/20 17:25 Laboratory Tests 02/18/20 17:25 Vital Signs: Vital Signs Date Time Temp Pulse Resp B/P (MAP) Pulse Ox O2 Delivery O2 Flow Rate FiO2 02/18/20 17:23 98.4 92 21 159/106 (123) 98 Room Air 98.4 EKG: EK-sinus rhythm, rate 82, with abnormal left axis deviation, left anterior fascicular block, no STEMI read by Dr. Camacho [] Radiology/Procedures: Radiology/Procedures: PROCEDURE: CT HEAD WO CONTRAST PQRS Compliance Statement: One or more of the following individualized dose reduction techniques were utilized for this examination: 1. Automated exposure control 2. Adjustment of the mA and/or kV according to patient size 3. Use of iterative reconstruction technique CT head without contrast 02/18/2020 6:43 PM INDICATION: Dizziness with history of brain aneurysm COMPARISON: CT head 10/23/2018 TECHNIQUE: Multiple axial CT images of the head were obtained from skull base through the vertex without intravenous contrast. FINDINGS: Head: Ventricles, sulci and basal cisterns are within normal limits. There is no hydrocephalus. Mays-white matter differentiation is normal. There is no acute intracranial hemorrhage. There is no mass, mass effect or midline shift. Posterior fossa is normal in appearance. Visualized portions of the orbits are normal. Paranasal sinuses are well aerated. Mastoid air cells are well aerated. Scalp and calvaria are normal. IMPRESSION: No acute intracranial hemorrhage. [] CXR- No acute findings read by Dr. Barber. Course & Med Decision Making: Course & Med Decision Making Pertinent Labs and Imaging studies reviewed. (See chart for details) Patient is a 44-year-old male who presented to the emergency department with complaints of a sudden onset of dizziness and chest pressure. Patient reported a history of a brain aneurysm as well as coronary artery disease, seizures, high blood pressure, degenerative disc disease, high blood pressure, and COPD. EKG was not suspicious for ST elevation AR. CBC was unremarkable, PT/INR within normal limits; CMP reveals a glucose of 109, elevated AST, no normal cardiac enzymes and troponin; UA is unremarkable, UDS pending CT head unremarkable, chest x-ray no acute findings. Patient was given 1 L of normal saline and 25 mg of p.o. meclizine. He reported some improvement in the dizziness however continue to report chest pressure. Patient's heart score is a 3. Patient has a history of coronary artery disease. Vital signs are stable. We will admit the patient for chest pain rule out. 1950-spoke with Dr. Larsen who is the admitting physician, and care was assumed following discussion of patient. Patient will be admitted to [facility] for observation. Patient's vital signs stable. Patient remains afebrile, appears nontoxic, respirations even and unlabored. Patient will be admitted to the [facility] floor. Patient's case and plan of care also discussed with Dr. Barber [] Kimberley Disclaimer: Kimberley Disclaimer: This electronic medical record was generated, in whole or in part, using a voice recognition dictation system. Departure Departure Impression: Primary Impression: Chest pain Qualified Codes: R07.9 - Chest pain, unspecified Additional Impression: Dizziness Disposition: 09 ADMITTED INPATIENT Admitting Physician: KARLEE De Guzman) Condition: STABLE Referrals: NO PCP (PCP) CORINNE UMANZOR C[employer] IN [employer] OPERATOR Feb 18, 2020 19:19
--- NOTE | 2020-02-18 19:30 | RAD ---
RS Compliance Statement: One or more of the following individualized dose reduction techniques were utilized for this examination: 1. Automated exposure control 2. Adjustment of the mA and/or kV according to patient size 3. Use of iterative reconstruction technique CT head without contrast 02/18/2020 6:43 PM INDICATION: Dizziness with history of brain aneurysm COMPARISON: CT head 10/23/2018 TECHNIQUE: Multiple axial CT images of the head were obtained from skull base through the vertex without intravenous contrast. FINDINGS: Head: Ventricles, sulci and basal cisterns are within normal limits. There is no hydrocephalus. Mays-white matter differentiation is normal. There is no acute intracranial hemorrhage. There is no mass, mass effect or midline shift. Posterior fossa is normal in appearance. Visualized portions of the orbits are normal. Paranasal sinuses are well aerated. Mastoid air cells are well aerated. Scalp and calvaria are normal. IMPRESSION: No acute intracranial hemorrhage. Electronically signed by: Violetta Ramon MD (02/18/2020 7:27 PM) [facility]
--- NOTE | 2020-02-18 19:57 | RAD ---
Exam: Chest one view INDICATION: Chest pain TECHNIQUE: Frontal view of the chest Comparisons: 10/23/2018 FINDINGS: The cardiomediastinal silhouette and pulmonary vessels are within normal limits. The lung and pleural spaces are clear. IMPRESSION: No acute cardiopulmonary process. Electronically signed by: Marck Schmidt MD (02/18/2020 7:53 PM) [id number]
[2020-02-18] MEDS ORDERED: ASPIRIN 325 MG TABLET PO ONE (20:00)
[2020-02-18 20:07] LABS: AMPHETAMINE/METHAMPHETAMINE NEG (NEG); BARBITURATES NEG (NEG); BENZODIAZEPINES NEG (NEG); CANNABINOIDS NEG (NEG); COCAINE NEG (NEG); METHADONE NEG (NEG); OPIATES NEG (NEG); PHENCYCLIDINE NEG (NEG)
--- NOTE | 2020-02-18 21:02 | PDOC1 ---
History and Physical Date of Admission Date of Admission DATE: 02/18/20 TIME: 20:58 Source Source: Chart review, Patient History of Present Illness History of Present Illness Mr. Koehler, is a 44 year old male who presents to the emergency department with complaints of feeling nauseated and dizzy. He has chestpain with pressure, pain 6/10 to mid sternum, but also some amt of reproducible./ His dizzyness feels a little better after getting meclizine in the ER. He denies any diaphoresis, numbness, tingling, weakness, headache, vision changes, vomiting, diarrhea, abdominal pain, back pain, cough, shortness of breath, or wheezing. Patient states that he has a history of a brain aneurysm, high blood pressure, and was worried when his dizzyness was worse with movement, then he had chest pain and pressure. 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 Past Medical History Cardiovascular: No pertinent hx, HTN Pulmonary: Bronchitis, COPD CENTRAL NERVOUS SYSTEM: Migraine, Seizure Musculoskeletal: low back pain ENT: No pertinent hx Renal/: No pertinent hx Endocrine: No pertinent hx Past Surgical History Past Surgical History: No pertinent history Family History Family History: Heart Disease Social History Smoke: <1 pack per day ALCOHOL: none Drugs: None Current Problem List Problem List Problems Medical Problems: (1) Chest pain Status: Acute (2) Dizziness Status: Acute Current Medications Current Medications Current Medications Sodium Chloride 1,000 ml @ 1,000 mls/hr 1X ONCE IV Last administered on at 18:51; Start 02/18/20 at 18:45; Stop 02/18/20 at 19:44; Status DC Meclizine HCl (Antivert) 25 mg 1X ONCE PO Last administered on 02/18/20at 18:51; Start 02/18/20 at 18:45; Stop 02/18/20 at 18:46; Status DC Aspirin (Sohail Aspirin) 325 mg 1X ONCE PO Last administered on 02/18/20at 20:12; Start 02/18/20 at 20:00; Stop 02/18/20 at 20:01; Status DC Active Scripts Active Atenolol 50 Mg Tablet 1 Tab PO DAILY Tegretol (Carbamazepine) 200 Mg Tablet 2.5 Tab PO BID Naprosyn (Naproxen) 500 Mg Tablet 1 Tab PO BID Hydrocodone-Apap 5-325 (Hydrocodone Bit/Acetaminophen) 1 Each Tablet 1-2 Tab PO PRN Q6HRS PRN 5 Days Lfpozs-Yvqodgzp-Xcoy 50-325-40 (Butalb/Acetaminophen/Caffeine) 1 Each Tablet 1 Each PO Q6HRS PRN Carbamazepine ER (Carbamazepine) 100 Mg Tab.er.12h 100 Mg PO BID Carafate (Sucralfate) 1 Gm Tablet 1 Tab PO QID Pepcid (Famotidine) 20 Mg Tablet 20 Mg PO BID Fioricet 50-300-40 Mg Capsule (Butalb/Acetaminophen/Caffeine) 1 Each Capsule 1 Each PO PRN Q4HRS PRN Reported Tegretol (Carbamazepine) 200 Mg Tablet 0.5 Tab PO BID Allergies Allergies: Coded Allergies: trazodone (Verified Allergy, Severe, PT REPORTS " MY HEART STOPPED", 11/24/15) ROS General: No: Chills, Night Sweats, Fatigue, Malaise, Appetite, Other PSYCHOLOGICAL ROS: No: Anxiety, Behavioral Disorder, Concentration difficultie, Decreased libido, Depression, Disorientation, Hallucinations, Hostility, Irritablity, Memory difficulties, Mood Swings, Obsessive thoughts, Physical abuse, Sexual abuse, Sleep disturbances, Suicidal ideation, Other Eyes: No Blurry vision, No Decreased vision, No Double vision, No Dry eyes, No Excessive tearing, No Eye Pain, No Itchy Eyes, No Loss of vision, No Photophobia, No Scotomata, No Uses contacts, No Uses glasses, No Other Respiratory: No: Cough, Hemoptysis, Orthopnea, Shortness of breath, SOB with excertion, Sputum Changes, Stridor, Tachypnea, Wheezing, Other Cardiovascular: yes Chest Pain; No Palpitations, No Orthopnea, No Paroxysmal Noc. Dyspnea, No Edema, No Lt Headedness, No Other Gastrointestinal: No Nausea, No Vomiting, No Abdominal Pain, No Diarrhea, No Constipation, No Melena, No Hematochezia, No Other Musculoskeletal: No Gait Disturbance, No Joint Pain, No Joint Stiffness, No Joint Swelling, No Muscle Pain, No Muscular Weakness, No Pain In:, No Swelling In:, No Other Neurological: No Behavorial Changes, No Bowel/Bladder ControlChng, No Confusion, No Dizziness, No Gait Disturbance, No Headaches, No Impaired Coord/balance, No Memory Loss, No Numbness/Tingling, No Seizures, No Speech Problems, No Tremors, No Visual Changes, No Weakness, No Other Skin: No Dry Skin, No Eczema, No Hair Changes, No Lumps, No Mole Changes, No Mottling, No Nail Changes, No Pruritus, No Rash, No Skin Lesion Changes, No Other, No Acne Physical Exam General: Alert, Oriented X3, Cooperative HEENT: Atraumatic, PERRLA Lungs: Clear to auscultation Heart: S1S2, RRR Abdomen: Normal bowel sounds, Soft Extremities: No clubbing, No cyanosis, Normal pulses Skin: No breakdown, No significant lesion Neuro: Normal gait, Normal speech, Normal tone, Sensation intact Psych/Mental Status: Mental status NL, Mood NL Vitals Vitals Vital Signs Date Time Temp Pulse Resp B/P (MAP) Pulse Ox O2 Delivery O2 Flow Rate FiO2 02/18/20 20:15 74 16 97 02/18/20 17:23 98.4 159/106 (123) Room Air 98.4 Labs Labs Laboratory Tests Test 02/18/20 17:13 02/18/20 17:25 02/18/20 18:25 Glucose (Fingerstick) 129 mg/dL (70-99) White Blood Count 10.0 x10^3/uL (4.0-11.0) Red Blood Count 5.64 x10^6/uL (4.30-5.70) Hemoglobin 18.9 g/dL (13.0-17.5) Hematocrit 53.8 % (39.0-53.0) Mean Corpuscular Volume 96 fL (79-100) Mean Corpuscular Hemoglobin 34 pg (25-35) Mean Corpuscular Hemoglobin Concent 35 g/dL (31-37) Red Cell Distribution Width 13.8 % (11.5-14.5) Platelet Count 242 x10^3/uL (140-400) Neutrophils (%) (Auto) 68 % (31-73) Lymphocytes (%) (Auto) 21 % (24-48) Monocytes (%) (Auto) 8 % (0-9) Eosinophils (%) (Auto) 2 % (0-3) Basophils (%) (Auto) 1 % (0-3) Neutrophils # (Auto) 6.8 x10^3/uL (1.8-7.7) Lymphocytes # (Auto) 2.1 x10^3/uL (1.0-4.8) Monocytes # (Auto) 0.8 x10^3/uL (0.0-1.1) Eosinophils # (Auto) 0.2 x10^3/uL (0.0-0.7) Basophils # (Auto) 0.1 x10^3/uL (0.0-0.2) Prothrombin Time 13.4 SEC (11.7-14.0) Prothromb Time International Ratio 1.1 (0.8-1.1) Activated Partial Thromboplast Time 28 SEC (24-38) Sodium Level 140 mmol/L (136-145) Potassium Level 4.0 mmol/L (3.5-5.1) Chloride Level 103 mmol/L (98-107) Carbon Dioxide Level 29 mmol/L (21-32) Anion Gap 8 (6-14) Blood Urea Nitrogen 8 mg/dL (8-26) Creatinine 1.2 mg/dL (0.7-1.3) Estimated GFR (Cockcroft-Gault) 66.1 BUN/Creatinine Ratio 7 (6-20) Glucose Level 101 mg/dL (70-99) Calcium Level 9.1 mg/dL (8.5-10.1) Total Bilirubin 0.5 mg/dL (0.2-1.0) Aspartate Amino Transf (AST/SGOT) 48 U/L (15-37) Alanine Aminotransferase (ALT/SGPT) 50 U/L (16-63) Alkaline Phosphatase 87 U/L (46-116) Creatine Kinase 82 U/L (39-308) Creatine Kinase MB (Mass) 0.8 ng/mL (0.0-3.6) Creatine Kinase MB Relative Index 1.0 % (0-4) Troponin I Quantitative < 0.017 ng/mL (0.000-0.055) DT-Ebx-P-Type Natriuretic Peptide 37 pg/mL (0-124) Total Protein 7.7 g/dL (6.4-8.2) Albumin 3.8 g/dL (3.4-5.0) Albumin/Globulin Ratio 1.0 (1.0-1.7) Urine Collection Type Unknown Urine Color Yellow Urine Clarity Clear Urine pH 6.0 (<5.0-8.0) Urine Specific Susan 1.015 (1.000-1.030) Urine Protein Negative mg/dL (NEG-TRACE) Urine Glucose (UA) Negative mg/dL (NEG) Urine Ketones (Stick) Negative mg/dL (NEG) Urine Blood Negative (NEG) Urine Nitrite Negative (NEG) Urine Bilirubin Negative (NEG) Urine Urobilinogen Dipstick 1.0 mg/dL (0.2 mg/dL) Urine Leukocyte Esterase Negative (NEG) Urine RBC 1-2 /HPF (0-2) Urine WBC 1-4 /HPF (0-4) Urine Bacteria 0 /HPF (0-FEW) Urine Mucus Mod /LPF Urine Opiates Screen Neg (NEG) Urine Methadone Screen Neg (NEG) Urine Barbiturates Neg (NEG) Urine Phencyclidine Screen Neg (NEG) Urine Amphetamine/Methamphetamine Neg (NEG) Urine Benzodiazepines Screen Neg (NEG) Urine Cocaine Screen Neg (NEG) Urine Cannabinoids Screen Neg (NEG) Urine Ethyl Alcohol Neg (NEG) Laboratory Tests Test 02/18/20 17:13 02/18/20 17:25 02/18/20 18:25 Glucose (Fingerstick) 129 mg/dL (70-99) White Blood Count 10.0 x10^3/uL (4.0-11.0) Red Blood Count 5.64 x10^6/uL (4.30-5.70) Hemoglobin 18.9 g/dL (13.0-17.5) Hematocrit 53.8 % (39.0-53.0) Mean Corpuscular Volume 96 fL (79-100) Mean Corpuscular Hemoglobin 34 pg (25-35) Mean Corpuscular Hemoglobin Concent 35 g/dL (31-37) Red Cell Distribution Width 13.8 % (11.5-14.5) Platelet Count 242 x10^3/uL (140-400) Neutrophils (%) (Auto) 68 % (31-73) Lymphocytes (%) (Auto) 21 % (24-48) Monocytes (%) (Auto) 8 % (0-9) Eosinophils (%) (Auto) 2 % (0-3) Basophils (%) (Auto) 1 % (0-3) Neutrophils # (Auto) 6.8 x10^3/uL (1.8-7.7) Lymphocytes # (Auto) 2.1 x10^3/uL (1.0-4.8) Monocytes # (Auto) 0.8 x10^3/uL (0.0-1.1) Eosinophils # (Auto) 0.2 x10^3/uL (0.0-0.7) Basophils # (Auto) 0.1 x10^3/uL (0.0-0.2) Prothrombin Time 13.4 SEC (11.7-14.0) Prothromb Time International Ratio 1.1 (0.8-1.1) Activated Partial Thromboplast Time 28 SEC (24-38) Sodium Level 140 mmol/L (136-145) Potassium Level 4.0 mmol/L (3.5-5.1) Chloride Level 103 mmol/L (98-107) Carbon Dioxide Level 29 mmol/L (21-32) Anion Gap 8 (6-14) Blood Urea Nitrogen 8 mg/dL (8-26) Creatinine 1.2 mg/dL (0.7-1.3) Estimated GFR (Cockcroft-Gault) 66.1 BUN/Creatinine Ratio 7 (6-20) Glucose Level 101 mg/dL (70-99) Calcium Level 9.1 mg/dL (8.5-10.1) Total Bilirubin 0.5 mg/dL (0.2-1.0) Aspartate Amino Transf (AST/SGOT) 48 U/L (15-37) Alanine Aminotransferase (ALT/SGPT) 50 U/L (16-63) Alkaline Phosphatase 87 U/L (46-116) Creatine Kinase 82 U/L (39-308) Creatine Kinase MB (Mass) 0.8 ng/mL (0.0-3.6) Creatine Kinase MB Relative Index 1.0 % (0-4) Troponin I Quantitative < 0.017 ng/mL (0.000-0.055) UB-Dvm-Q-Type Natriuretic Peptide 37 pg/mL (0-124) Total Protein 7.7 g/dL (6.4-8.2) Albumin 3.8 g/dL (3.4-5.0) Albumin/Globulin Ratio 1.0 (1.0-1.7) Urine Collection Type Unknown Urine Color Yellow Urine Clarity Clear Urine pH 6.0 (<5.0-8.0) Urine Specific Susan 1.015 (1.000-1.030) Urine Protein Negative mg/dL (NEG-TRACE) Urine Glucose (UA) Negative mg/dL (NEG) Urine Ketones (Stick) Negative mg/dL (NEG) Urine Blood Negative (NEG) Urine Nitrite Negative (NEG) Urine Bilirubin Negative (NEG) Urine Urobilinogen Dipstick 1.0 mg/dL (0.2 mg/dL) Urine Leukocyte Esterase Negative (NEG) Urine RBC 1-2 /HPF (0-2) Urine WBC 1-4 /HPF (0-4) Urine Bacteria 0 /HPF (0-FEW) Urine Mucus Mod /LPF Urine Opiates Screen Neg (NEG) Urine Methadone Screen Neg (NEG) Urine Barbiturates Neg (NEG) Urine Phencyclidine Screen Neg (NEG) Urine Amphetamine/Methamphetamine Neg (NEG) Urine Benzodiazepines Screen Neg (NEG) Urine Cocaine Screen Neg (NEG) Urine Cannabinoids Screen Neg (NEG) Urine Ethyl Alcohol Neg (NEG) VTE Prophylaxis Ordered VTE Prophylaxis Devices: No VTE Pharmacological Prophylaxi: Yes Assessment/Plan Assessment/Plan chest pain w/ pressure 6/10, right flank pain this AM tobacco use disorder, patch PRN admit obs, r/o ACS, CV consult prior cardiac cath done by Dr. Diaz in 2017, EM Molina MD Feb 18, 2020 21:02
[2020-02-18] MEDS: LIDOCAINE (700MG/PATCH) PATCH. TD SCH (21:11)
[2020-02-18] MEDS ORDERED: NICOTINE POLACRILEX 2MG GUM PACKAGE of 12. BC PRN (21:15)
[2020-02-18] MEDS ORDERED: HYDROcodone/APAP 5/325MG 1 TAB TABLET PO PRN (21:15)
[2020-02-18] MEDS ORDERED: BUTALB/APAP/CAFEIN 50/325/40MG TABLET. PO PRN (21:15)
[2020-02-18] MEDS ORDERED: PANTOPRAZOLE 40 MG TABLET.DR. PO ONE (21:15)
[2020-02-18] MEDS ORDERED: NICOTINE 14MG PATCH. TD PRN (21:15)
[2020-02-18] MEDS ORDERED: ENOXAPARIN 40 MG/0.4 ML SYRINGE. SQ SCH (21:30)
[2020-02-18 21:55] VITALS: BP 124/85
[2020-02-18 23:14] VITALS: BP 126/81
[2020-02-19 02:30] VITALS: BP 117/75
[2020-02-19 04:54] LABS: BASO # 0.1 x10^3/uL (0.0-0.2); BASO % 1 % (0-3); EOS # 0.3 x10^3/uL (0.0-0.7); EOS % 4 % (0-3); HEMATOCRIT 51.7 % (39.0-53.0); HEMOGLOBIN 17.4 g/dL (13.0-17.5); LYMPH # 3.1 x10^3/uL (1.0-4.8); LYMPH % 38 % (24-48); MEAN CORPUSCULAR HEMOGLOBIN 33 pg (25-35); MEAN CORPUSCULAR HGB CONC 34 g/dL (31-37); MEAN CORPUSCULAR VOLUME 97 fL (79-100); MONO # 0.8 x10^3/uL (0.0-1.1); MONO % 10 % (0-9); NEUT # 3.9 x10^3/uL (1.8-7.7); NEUT % 47 % (31-73); PLATELET COUNT 201 x10^3/uL (140-400); RED BLOOD COUNT 5.33 x10^6/uL (4.30-5.70); RED CELL DISTRIBUTION WIDTH 14.4 % (11.5-14.5); WHITE BLOOD COUNT 8.2 x10^3/uL (4.0-11.0)
[2020-02-19 05:22] LABS: ALBUMIN 3.1 g/dL (3.4-5.0); ALBUMIN/GLOBULIN RATIO 0.9 (1.0-1.7); CALCIUM 8.6 mg/dL (8.5-10.1); CREATININE 1.2 mg/dL (0.7-1.3); GFR 66.1; POTASSIUM 4.6 mmol/L (3.5-5.1); TOTAL BILIRUBIN 0.4 mg/dL (0.2-1.0); TOTAL PROTEIN 6.7 g/dL (6.4-8.2)
[2020-02-19 05:23] LABS: CHOLESTEROL/HDL RATIO 5.1
[2020-02-19 07:00] VITALS: BP 129/92
[2020-02-19] MEDS: SUCRALFATE 1 GM TABLET. PO SCH ×2 (08:41→12:16)
[2020-02-19] MEDS: LIDOCAINE (700MG/PATCH) PATCH. TD SCH (08:45)
[2020-02-19] MEDS ORDERED: carBAMazepine 200 MG TABLET PO SCH (09:00)
[2020-02-19] MEDS ORDERED: ATENOLOL 50 MG TABLET. PO SCH (09:00)
[2020-02-19] MEDS ORDERED: FAMOTIDINE 20 MG TABLET. PO SCH (09:00)
[2020-02-19 11:49] VITALS: BP 130/85
--- NOTE | 2020-02-19 12:11 | CONS ---
DATE OF CONSULTATION: 02/19/2020 REASON FOR CONSULTATION: Chest pain. HISTORY OF PRESENT ILLNESS: The patient is a pleasant 44-year-old man with past medical history as noted below, presents to the hospital in the setting of chest pain, which appears to be noncardiac in nature. He has reproducible chest wall pain. He had some coughing, which also prompted some chest discomfort. He has not had any nausea, vomiting, diarrhea, fevers, or chills. Denies any syncope or palpitations.Otherwise, he has been in his usual state of health without any problems. PAST MEDICAL HISTORY: Seizure disorder Tobacco abuse HTN SOCIAL HISTORY: Notable for tobacco abuse. ALLERGIES: TRAZODONE. CURRENT CARDIOVASCULAR MEDICATIONS: As follows: 1. Atenolol 50 mg daily. 2. Nicotine for smoking cessation therapy. REVIEW OF SYSTEMS: Negative unless otherwise mentioned above in the HPI. PHYSICAL EXAMINATION: a/o x 3. NAD reproducible chest pain with palpation normal heart tones clr lungs soft abdomen no edema LABORATORY STUDIES: Troponin is negative, EKG is unremarkable. Previous cardiac catheterization 2 years ago was unremarkable. IMPRESSION: 1. Noncardiac chest pain. 2. Hypertension. 3. History of seizure disorder. RECOMMENDATIONS: At this present time, given his noncardiac chest pain, negative EKG and cardiac biomarkers, he will be stable for discharge from a cardiovascular perspective with followup on an outpatient basis with his primary care doctor and consideration of further testing as necessary. Thank you for this consultation. TODD HERRING MD DR: JUANCARLOS/yashira JOB#: [id number] / [id number] ARIANE
--- NOTE | 2020-02-19 12:40 | PDOC ---
PROGRESS NOTES History of Present Illness History of Present Illness VTE Prophylaxis Ordered VTE Prophylaxis Devices: No VTE Pharmacological Prophylaxi: Yes DISCHARGE DX Assessment/Plan chest pain w/ pressure 6/10, right flank pain this AM tobacco use disorder, patch PRN admit obs, r/o ACS, CV consult prior cardiac cath done by Dr. Diaz in 2017, clear D/C TODAY D/C PLANNING 27 MIN Vitals Vitals Vital Signs Date Time Temp Pulse Resp B/P (MAP) Pulse Ox O2 Delivery O2 Flow Rate FiO2 02/19/20 11:49 97.8 67 20 130/85 (100) 96 Room Air 97.8 Physical Exam General: Alert, Oriented X3, Cooperative Heart: Regular rate Lungs: Clear Abdomen: Normal bowel sounds, Soft Extremities: No clubbing, No cyanosis, Normal pulses Skin: No breakdown, No significant lesion Labs LABS Laboratory Tests Test 02/18/20 17:13 02/18/20 17:25 02/18/20 18:25 02/19/20 04:35 Glucose (Fingerstick) 129 mg/dL (70-99) White Blood Count 10.0 x10^3/uL (4.0-11.0) 8.2 x10^3/uL (4.0-11.0) Red Blood Count 5.64 x10^6/uL (4.30-5.70) 5.33 x10^6/uL (4.30-5.70) Hemoglobin 18.9 g/dL (13.0-17.5) 17.4 g/dL (13.0-17.5) Hematocrit 53.8 % (39.0-53.0) 51.7 % (39.0-53.0) Mean Corpuscular Volume 96 fL (79-100) 97 fL (79-100) Mean Corpuscular Hemoglobin 34 pg (25-35) 33 pg (25-35) Mean Corpuscular Hemoglobin Concent 35 g/dL (31-37) 34 g/dL (31-37) Red Cell Distribution Width 13.8 % (11.5-14.5) 14.4 % (11.5-14.5) Platelet Count 242 x10^3/uL (140-400) 201 x10^3/uL (140-400) Neutrophils (%) (Auto) 68 % (31-73) 47 % (31-73) Lymphocytes (%) (Auto) 21 % (24-48) 38 % (24-48) Monocytes (%) (Auto) 8 % (0-9) 10 % (0-9) Eosinophils (%) (Auto) 2 % (0-3) 4 % (0-3) Basophils (%) (Auto) 1 % (0-3) 1 % (0-3) Neutrophils # (Auto) 6.8 x10^3/uL (1.8-7.7) 3.9 x10^3/uL (1.8-7.7) Lymphocytes # (Auto) 2.1 x10^3/uL (1.0-4.8) 3.1 x10^3/uL (1.0-4.8) Monocytes # (Auto) 0.8 x10^3/uL (0.0-1.1) 0.8 x10^3/uL (0.0-1.1) Eosinophils # (Auto) 0.2 x10^3/uL (0.0-0.7) 0.3 x10^3/uL (0.0-0.7) Basophils # (Auto) 0.1 x10^3/uL (0.0-0.2) 0.1 x10^3/uL (0.0-0.2) Prothrombin Time 13.4 SEC (11.7-14.0) Prothromb Time International Ratio 1.1 (0.8-1.1) Activated Partial Thromboplast Time 28 SEC (24-38) Sodium Level 140 mmol/L (136-145) 140 mmol/L (136-145) Potassium Level 4.0 mmol/L (3.5-5.1) 4.6 mmol/L (3.5-5.1) Chloride Level 103 mmol/L (98-107) 106 mmol/L (98-107) Carbon Dioxide Level 29 mmol/L (21-32) 31 mmol/L (21-32) Anion Gap 8 (6-14) 3 (6-14) Blood Urea Nitrogen 8 mg/dL (8-26) 9 mg/dL (8-26) Creatinine 1.2 mg/dL (0.7-1.3) 1.2 mg/dL (0.7-1.3) Estimated GFR (Cockcroft-Gault) 66.1 66.1 BUN/Creatinine Ratio 7 (6-20) 8 (6-20) Glucose Level 101 mg/dL (70-99) 98 mg/dL (70-99) Calcium Level 9.1 mg/dL (8.5-10.1) 8.6 mg/dL (8.5-10.1) Total Bilirubin 0.5 mg/dL (0.2-1.0) 0.4 mg/dL (0.2-1.0) Aspartate Amino Transf (AST/SGOT) 48 U/L (15-37) 41 U/L (15-37) Alanine Aminotransferase (ALT/SGPT) 50 U/L (16-63) 44 U/L (16-63) Alkaline Phosphatase 87 U/L (46-116) 76 U/L (46-116) Creatine Kinase 82 U/L (39-308) Creatine Kinase MB (Mass) 0.8 ng/mL (0.0-3.6) Creatine Kinase MB Relative Index 1.0 % (0-4) Troponin I Quantitative < 0.017 ng/mL (0.000-0.055) < 0.017 ng/mL (0.000-0.055) PE-Ijh-U-Type Natriuretic Peptide 37 pg/mL (0-124) Total Protein 7.7 g/dL (6.4-8.2) 6.7 g/dL (6.4-8.2) Albumin 3.8 g/dL (3.4-5.0) 3.1 g/dL (3.4-5.0) Albumin/Globulin Ratio 1.0 (1.0-1.7) 0.9 (1.0-1.7) Urine Collection Type Unknown Urine Color Yellow Urine Clarity Clear Urine pH 6.0 (<5.0-8.0) Urine Specific [place] 1.015 (1.000-1.030) Urine Protein Negative mg/dL (NEG-TRACE) Urine Glucose (UA) Negative mg/dL (NEG) Urine Ketones (Stick) Negative mg/dL (NEG) Urine Blood Negative (NEG) Urine Nitrite Negative (NEG) Urine Bilirubin Negative (NEG) Urine Urobilinogen Dipstick 1.0 mg/dL (0.2 mg/dL) Urine Leukocyte Esterase Negative (NEG) Urine RBC 1-2 /HPF (0-2) Urine WBC 1-4 /HPF (0-4) Urine Bacteria 0 /HPF (0-FEW) Urine Mucus Mod /LPF Urine Opiates Screen Neg (NEG) Urine Methadone Screen Neg (NEG) Urine Barbiturates Neg (NEG) Urine Phencyclidine Screen Neg (NEG) Urine Amphetamine/Methamphetamine Neg (NEG) Urine Benzodiazepines Screen Neg (NEG) Urine Cocaine Screen Neg (NEG) Urine Cannabinoids Screen Neg (NEG) Urine Ethyl Alcohol Neg (NEG) Triglycerides Level 115 mg/dL (0-150) Cholesterol Level 167 mg/dL (0-200) LDL Cholesterol, Calculated 111 mg/dL (0-100) VLDL Cholesterol, Calculated 23 mg/dL (0-40) Non-HDL Cholesterol Calculated 134 mg/dL (0-129) HDL Cholesterol 33 mg/dL (40-60) Cholesterol/HDL Ratio 5.1 Assessment and Plan Assessmemt and Plan Problems Medical Problems: (1) Chest pain Status: Acute (2) Dizziness Status: Acute Comment Review of Relevant I have reviewed the following items alea (where applicable) has been applied. Labs Laboratory Tests Test 02/18/20 17:13 02/18/20 17:25 02/18/20 18:25 02/19/20 04:35 Glucose (Fingerstick) 129 mg/dL (70-99) White Blood Count 10.0 x10^3/uL (4.0-11.0) 8.2 x10^3/uL (4.0-11.0) Red Blood Count 5.64 x10^6/uL (4.30-5.70) 5.33 x10^6/uL (4.30-5.70) Hemoglobin 18.9 g/dL (13.0-17.5) 17.4 g/dL (13.0-17.5) Hematocrit 53.8 % (39.0-53.0) 51.7 % (39.0-53.0) Mean Corpuscular Volume 96 fL (79-100) 97 fL (79-100) Mean Corpuscular Hemoglobin 34 pg (25-35) 33 pg (25-35) Mean Corpuscular Hemoglobin Concent 35 g/dL (31-37) 34 g/dL (31-37) Red Cell Distribution Width 13.8 % (11.5-14.5) 14.4 % (11.5-14.5) Platelet Count 242 x10^3/uL (140-400) 201 x10^3/uL (140-400) Neutrophils (%) (Auto) 68 % (31-73) 47 % (31-73) Lymphocytes (%) (Auto) 21 % (24-48) 38 % (24-48) Monocytes (%) (Auto) 8 % (0-9) 10 % (0-9) Eosinophils (%) (Auto) 2 % (0-3) 4 % (0-3) Basophils (%) (Auto) 1 % (0-3) 1 % (0-3) Neutrophils # (Auto) 6.8 x10^3/uL (1.8-7.7) 3.9 x10^3/uL (1.8-7.7) Lymphocytes # (Auto) 2.1 x10^3/uL (1.0-4.8) 3.1 x10^3/uL (1.0-4.8) Monocytes # (Auto) 0.8 x10^3/uL (0.0-1.1) 0.8 x10^3/uL (0.0-1.1) Eosinophils # (Auto) 0.2 x10^3/uL (0.0-0.7) 0.3 x10^3/uL (0.0-0.7) Basophils # (Auto) 0.1 x10^3/uL (0.0-0.2) 0.1 x10^3/uL (0.0-0.2) Prothrombin Time 13.4 SEC (11.7-14.0) Prothromb Time International Ratio 1.1 (0.8-1.1) Activated Partial Thromboplast Time 28 SEC (24-38) Sodium Level 140 mmol/L (136-145) 140 mmol/L (136-145) Potassium Level 4.0 mmol/L (3.5-5.1) 4.6 mmol/L (3.5-5.1) Chloride Level 103 mmol/L (98-107) 106 mmol/L (98-107) Carbon Dioxide Level 29 mmol/L (21-32) 31 mmol/L (21-32) Anion Gap 8 (6-14) 3 (6-14) Blood Urea Nitrogen 8 mg/dL (8-26) 9 mg/dL (8-26) Creatinine 1.2 mg/dL (0.7-1.3) 1.2 mg/dL (0.7-1.3) Estimated GFR (Cockcroft-Gault) 66.1 66.1 BUN/Creatinine Ratio 7 (6-20) 8 (6-20) Glucose Level 101 mg/dL (70-99) 98 mg/dL (70-99) Calcium Level 9.1 mg/dL (8.5-10.1) 8.6 mg/dL (8.5-10.1) Total Bilirubin 0.5 mg/dL (0.2-1.0) 0.4 mg/dL (0.2-1.0) Aspartate Amino Transf (AST/SGOT) 48 U/L (15-37) 41 U/L (15-37) Alanine Aminotransferase (ALT/SGPT) 50 U/L (16-63) 44 U/L (16-63) Alkaline Phosphatase 87 U/L (46-116) 76 U/L (46-116) Creatine Kinase 82 U/L (39-308) Creatine Kinase MB (Mass) 0.8 ng/mL (0.0-3.6) Creatine Kinase MB Relative Index 1.0 % (0-4) Troponin I Quantitative < 0.017 ng/mL (0.000-0.055) < 0.017 ng/mL (0.000-0.055) HB-Lqj-[id number]-Type Natriuretic Peptide 37 pg/mL (0-124) Total Protein 7.7 g/dL (6.4-8.2) 6.7 g/dL (6.4-8.2) Albumin 3.8 g/dL (3.4-5.0) 3.1 g/dL (3.4-5.0) Albumin/Globulin Ratio 1.0 (1.0-1.7) 0.9 (1.0-1.7) Urine Collection Type Unknown Urine Color Yellow Urine Clarity Clear Urine pH 6.0 (<5.0-8.0) Urine Specific [place] 1.015 (1.000-1.030) Urine Protein Negative mg/dL (NEG-TRACE) Urine Glucose (UA) Negative mg/dL (NEG) Urine Ketones (Stick) Negative mg/dL (NEG) Urine Blood Negative (NEG) Urine Nitrite Negative (NEG) Urine Bilirubin Negative (NEG) Urine Urobilinogen Dipstick 1.0 mg/dL (0.2 mg/dL) Urine Leukocyte Esterase Negative (NEG) Urine RBC 1-2 /HPF (0-2) Urine WBC 1-4 /HPF (0-4) Urine Bacteria 0 /HPF (0-FEW) Urine Mucus Mod /LPF Urine Opiates Screen Neg (NEG) Urine Methadone Screen Neg (NEG) Urine Barbiturates Neg (NEG) Urine Phencyclidine Screen Neg (NEG) Urine Amphetamine/Methamphetamine Neg (NEG) Urine Benzodiazepines Screen Neg (NEG) Urine Cocaine Screen Neg (NEG) Urine Cannabinoids Screen Neg (NEG) Urine Ethyl Alcohol Neg (NEG) Triglycerides Level 115 mg/dL (0-150) Cholesterol Level 167 mg/dL (0-200) LDL Cholesterol, Calculated 111 mg/dL (0-100) VLDL Cholesterol, Calculated 23 mg/dL (0-40) Non-HDL Cholesterol Calculated 134 mg/dL (0-129) HDL Cholesterol 33 mg/dL (40-60) Cholesterol/HDL Ratio 5.1 Laboratory Tests Test 02/18/20 17:13 02/18/20 17:25 02/18/20 18:25 02/19/20 04:35 Glucose (Fingerstick) 129 mg/dL (70-99) White Blood Count 10.0 x10^3/uL (4.0-11.0) 8.2 x10^3/uL (4.0-11.0) Red Blood Count 5.64 x10^6/uL (4.30-5.70) 5.33 x10^6/uL (4.30-5.70) Hemoglobin 18.9 g/dL (13.0-17.5) 17.4 g/dL (13.0-17.5) Hematocrit 53.8 % (39.0-53.0) 51.7 % (39.0-53.0) Mean Corpuscular Volume 96 fL (79-100) 97 fL (79-100) Mean Corpuscular Hemoglobin 34 pg (25-35) 33 pg (25-35) Mean Corpuscular Hemoglobin Concent 35 g/dL (31-37) 34 g/dL (31-37) Red Cell Distribution Width 13.8 % (11.5-14.5) 14.4 % (11.5-14.5) Platelet Count 242 x10^3/uL (140-400) 201 x10^3/uL (140-400) Neutrophils (%) (Auto) 68 % (31-73) 47 % (31-73) Lymphocytes (%) (Auto) 21 % (24-48) 38 % (24-48) Monocytes (%) (Auto) 8 % (0-9) 10 % (0-9) Eosinophils (%) (Auto) 2 % (0-3) 4 % (0-3) Basophils (%) (Auto) 1 % (0-3) 1 % (0-3) Neutrophils # (Auto) 6.8 x10^3/uL (1.8-7.7) 3.9 x10^3/uL (1.8-7.7) Lymphocytes # (Auto) 2.1 x10^3/uL (1.0-4.8) 3.1 x10^3/uL (1.0-4.8) Monocytes # (Auto) 0.8 x10^3/uL (0.0-1.1) 0.8 x10^3/uL (0.0-1.1) Eosinophils # (Auto) 0.2 x10^3/uL (0.0-0.7) 0.3 x10^3/uL (0.0-0.7) Basophils # (Auto) 0.1 x10^3/uL (0.0-0.2) 0.1 x10^3/uL (0.0-0.2) Prothrombin Time 13.4 SEC (11.7-14.0) Prothromb Time International Ratio 1.1 (0.8-1.1) Activated Partial Thromboplast Time 28 SEC (24-38) Sodium Level 140 mmol/L (136-145) 140 mmol/L (136-145) Potassium Level 4.0 mmol/L (3.5-5.1) 4.6 mmol/L (3.5-5.1) Chloride Level 103 mmol/L (98-107) 106 mmol/L (98-107) Carbon Dioxide Level 29 mmol/L (21-32) 31 mmol/L (21-32) Anion Gap 8 (6-14) 3 (6-14) Blood Urea Nitrogen 8 mg/dL (8-26) 9 mg/dL (8-26) Creatinine 1.2 mg/dL (0.7-1.3) 1.2 mg/dL (0.7-1.3) Estimated GFR (Cockcroft-Gault) 66.1 66.1 BUN/Creatinine Ratio 7 (6-20) 8 (6-20) Glucose Level 101 mg/dL (70-99) 98 mg/dL (70-99) Calcium Level 9.1 mg/dL (8.5-10.1) 8.6 mg/dL (8.5-10.1) Total Bilirubin 0.5 mg/dL (0.2-1.0) 0.4 mg/dL (0.2-1.0) Aspartate Amino Transf (AST/SGOT) 48 U/L (15-37) 41 U/L (15-37) Alanine Aminotransferase (ALT/SGPT) 50 U/L (16-63) 44 U/L (16-63) Alkaline Phosphatase 87 U/L (46-116) 76 U/L (46-116) Creatine Kinase 82 U/L (39-308) Creatine Kinase MB (Mass) 0.8 ng/mL (0.0-3.6) Creatine Kinase MB Relative Index 1.0 % (0-4) Troponin I Quantitative < 0.017 ng/mL (0.000-0.055) < 0.017 ng/mL (0.000-0.055) EP-Ilm-D-Type Natriuretic Peptide 37 pg/mL (0-124) Total Protein 7.7 g/dL (6.4-8.2) 6.7 g/dL (6.4-8.2) Albumin 3.8 g/dL (3.4-5.0) 3.1 g/dL (3.4-5.0) Albumin/Globulin Ratio 1.0 (1.0-1.7) 0.9 (1.0-1.7) Urine Collection Type Unknown Urine Color Yellow Urine Clarity Clear Urine pH 6.0 (<5.0-8.0) Urine Specific [place] 1.015 (1.000-1.030) Urine Protein Negative mg/dL (NEG-TRACE) Urine Glucose (UA) Negative mg/dL (NEG) Urine Ketones (Stick) Negative mg/dL (NEG) Urine Blood Negative (NEG) Urine Nitrite Negative (NEG) Urine Bilirubin Negative (NEG) Urine Urobilinogen Dipstick 1.0 mg/dL (0.2 mg/dL) Urine Leukocyte Esterase Negative (NEG) Urine RBC 1-2 /HPF (0-2) Urine WBC 1-4 /HPF (0-4) Urine Bacteria 0 /HPF (0-FEW) Urine Mucus Mod /LPF Urine Opiates Screen Neg (NEG) Urine Methadone Screen Neg (NEG) Urine Barbiturates Neg (NEG) Urine Phencyclidine Screen Neg (NEG) Urine Amphetamine/Methamphetamine Neg (NEG) Urine Benzodiazepines Screen Neg (NEG) Urine Cocaine Screen Neg (NEG) Urine Cannabinoids Screen Neg (NEG) Urine Ethyl Alcohol Neg (NEG) Triglycerides Level 115 mg/dL (0-150) Cholesterol Level 167 mg/dL (0-200) LDL Cholesterol, Calculated 111 mg/dL (0-100) VLDL Cholesterol, Calculated 23 mg/dL (0-40) Non-HDL Cholesterol Calculated 134 mg/dL (0-129) HDL Cholesterol 33 mg/dL (40-60) Cholesterol/HDL Ratio 5.1 Medications Current Medications Sodium Chloride 1,000 ml @ 1,000 mls/hr 1X ONCE IV Last administered on 02/18/20at 18:51; Start 02/18/20 at 18:45; Stop 02/18/20 at 19:44; Status DC Meclizine HCl (Antivert) 25 mg 1X ONCE PO Last administered on 02/18/20at 18:51; Start 02/18/20 at 18:45; Stop 02/18/20 at 18:46; Status DC Aspirin (Sohail Aspirin) 325 mg 1X ONCE PO Last administered on 02/18/20at 20:12; Start 02/18/20 at 20:00; Stop 02/18/20 at 20:01; Status DC Pantoprazole Sodium (Protonix) 40 mg 1X ONCE PO Last administered on 02/18/20at 21:11; Start 02/18/20 at 21:15; Stop 02/18/20 at 21:16; Status DC Lidocaine (Lidoderm) 1 patch DAILY TD Last administered on 02/19/20at 08:45; Start 02/18/20 at 21:15 Nicotine (Nicoderm Cq 14mg) 1 patch PRN DAILY PRN TD SMOKING CESSATION; Start 02/18/20 at 21:15 Nicotine Polacrilex (Nicorette Gum) 1 each PRN Q1HR PRN BC SMOKING CESSATION; Start 02/18/20 at 21:15 Atenolol (Tenormin) 50 mg DAILY PO Last administered on 02/19/20at 08:41; Start 02/19/20 at 09:00 Acetaminophen/ Butalbital/ Caffeine (Fioricet) 1 tab PRN Q6HRS PRN PO HEADACHE; Start 02/18/20 at 21:15 Carbamazepine (TEGretol XR) 100 mg BID PO ; Start 02/19/20 at 09:00 Carbamazepine (TEGretol) 500 mg BID PO Last administered on 02/19/20at 08:41; Start 02/19/20 at 09:00 Famotidine (Pepcid) 20 mg BID PO Last administered on 02/19/20at 08:41; Start 02/19/20 at 09:00 Acetaminophen/ Hydrocodone Bitart (Lortab 5/325) 1 tab PRN Q6HRS PRN PO PAIN Last administered on 02/18/20at 22:22; Start 02/18/20 at 21:15 Sucralfate (Carafate) 1 gm QIDACHS PO Last administered on 02/19/20at 12:16; Start 02/19/20 at 07:30 Miscellaneous (Lidoderm Patch Removal) 1 ea [facility] ; Start 02/19/20 at 21:00 Enoxaparin Sodium (Lovenox Per Pharmacy Prophylaxis Dosing) 1 each PRN DAILY PRN [facility] SEE COMMENTS; Start 02/18/20 at 21:30 Enoxaparin Sodium (Lovenox 40mg Syringe) 40 mg Q24H SQ Last administered on 02/18/20at 21:23; Start 02/18/20 at 21:30 Active Scripts Active Atenolol 50 Mg Tablet 1 Tab PO DAILY Tegretol (Carbamazepine) 200 Mg Tablet 2.5 Tab PO BID Naprosyn (Naproxen) 500 Mg Tablet 1 Tab PO BID Hydrocodone-Apap 5-325 (Hydrocodone Bit/Acetaminophen) 1 Each Tablet 1-2 Tab PO PRN Q6HRS PRN 5 Days Unxpyd-Slodiirr-Lyxf 50-325-40 (Butalb/Acetaminophen/Caffeine) 1 Each Tablet 1 Each PO Q6HRS PRN Carbamazepine ER (Carbamazepine) 100 Mg Tab.er.12h 100 Mg PO BID Carafate (Sucralfate) 1 Gm Tablet 1 Tab PO QID Pepcid (Famotidine) 20 Mg Tablet 20 Mg PO BID Fioricet 50-300-40 Mg Capsule (Butalb/Acetaminophen/Caffeine) 1 Each Capsule 1 Each PO PRN Q4HRS PRN Reported Tegretol (Carbamazepine) 200 Mg Tablet 0.5 Tab PO BID Vitals/I & O Vital Sign - Last 24 Hours 02/18/20 02/18/20 02/18/20 02/18/20 17:23 18:46 20:15 20:31 Temp 98.4 98.4 Pulse 92 90 74 69 Resp 21 16 24 B/P (MAP) 159/106 (123) Pulse Ox 98 97 97 97 O2 Delivery Room Air 02/18/20 02/18/20 02/18/20 02/18/20 21:31 21:55 22:00 22:22 Temp 98.4 98.4 Pulse 76 79 Resp 18 20 B/P (MAP) 124/85 (98) Pulse Ox 97 98 O2 Delivery Room Air Room Air 02/18/20 02/18/20 02/19/20 02/19/20 23:14 23:22 02:30 07:00 Temp 98.4 98.4 97.7 98.4 98.4 97.7 Pulse 65 65 82 Resp 18 20 18 18 B/P (MAP) 126/81 (96) 117/75 (89) 129/92 (104) Pulse Ox 98 92 99 O2 Delivery Room Air Room Air Room Air Room Air 02/19/20 02/19/20 02/19/20 08:01 08:41 11:49 Temp 97.8 97.8 Pulse 82 67 Resp 20 B/P (MAP) 129/92 130/85 (100) Pulse Ox 96 O2 Delivery Room Air Room Air Intake and Output 02/18/20 02/18/20 02/19/20 15:00 23:00 07:00 Intake Total 1000 ml 340 ml Balance 1000 ml 340 ml FULBRIGHT,NICKI W MD Feb 19, 2020 12:40
[2020-02-19] MEDS ORDERED: CARB100T3 PO (14:32)
[2020-02-19] MEDS ORDERED: LIDO700A21 TD (14:32)
--- NOTE | 2020-02-19 14:33 | DISCH ---
DISCHARGE INSTRUCTIONS Condition on Discharge Condition on Discharge: Stable Activity After Discharge Activity Instructions for Disc: Activity as tolerated, Other, see below Bathing Instructions: Shower-keep dressing dry, No Tub Bath until see Lifting Instructions after Dis: No heavy lifting, No pulling or pushing, Do not lift >10 pounds Driving Instructions after Dis: Do not drive today Weight Bearing Status after Di: As tolerated Diet after Discharge Diet after Discharge: Cardiac Diet Texture: Regular Liquid Texture: Thin Liquid Checks after Discharge Checks after discharge: Check blood press - daily Contacting the [facility] after DC Call your doctor for: If your condition worsens Treatment/Equipment after DC Adaptive Equipment Issued: None NICKI GARF MD Feb 19, 2020 14:33
--- NOTE | 2020-02-19 15:58 | NUR ---
Discharge Note: YARI [facility] [place] Discharge instructions and discharge home medications reviewed with Patient and a copy given. All questions have been answered and understanding verbalized. Discharge instructions and handouts were given. Discontinued lines without compications. Patient discharged to Home.
[2020-02-19 15:59] VITALS: BP 123/77
[2020-02-19] MEDS ORDERED: PATCH REMOVAL. MC SCH (21:00)
== END 2020-02-19 16:09 | disposition home or self-care (01) ==
LOC: ER 17:05 → 2 NORTH 21:47
PROVIDERS: ADMIT Internal Medicine; ATTEND Internal Medicine
DX: R07.89 Other chest pain (principal); R42 Dizziness and giddiness; R56.9 Unspecified convulsions; I10 Essential (primary) hypertension; J44.9 Chronic obstructive pulmonary disease, unspecified; G43.909 Migraine, unspecified, not intractable, without status migrainosus; F17.200 Nicotine dependence, unspecified, uncomplicated; Z79.82 Long term (current) use of aspirin; Z98.890 Other specified postprocedural states
CPT/HCPCS: 36415; 70450; 71045; 80053; 80061; 80307; 81001; 82553; 82962; 83880; 84484; 85025; 85610; 85730; 93005; 96372; 99285; G0378; J1650; J7030; G0379; J8597